=== PATIENT | female | born 1950 | race Caucasian/White ===

== ENCOUNTER 2019-12-03 11:06 | Inpatient (IN) | payer OTHER ==
[2019-12-03] VITALS (11 sets, daily range): BP systolic 95–170; BP diastolic 39–93
[~2019-12-03] VITALS: Ht 160 cm; Wt 76.9 kg
--- NOTE | 2019-12-03 11:29 | ED Integumentary General ---
General Chief Complaint: Skin/Wound Problems Stated Complaint: R FOOT WOUND Nursing Triage Note: reports wound to R foot x 4 days Source: patient Exam Limitations: no limitations History of Present Illness Date Seen by Provider: Dec 03, 2019 Time Seen by Provider: 11:25 Initial Comments To ER with reports of a wound to the medial right foot. This has been present for about 4 days. She states it began as a blister on the plantar surface of her foot. She popped it. The redness has actually receded and looks a bit better today but there is still quite a bit of redness. She denies fevers or chills. She denies any medical history. She takes no medications and does not have a family doctor. She states she's only had blood drawn once in her life. She does not recall stepping on anything with her right foot, she denies any loss of sensation or neuropathy in her feet. She works for [employer] in [place] and is insistent that she return to work tomorrow. Timing/Duration: constant, other Severity: moderate Location: extremities Possible Cause: no cause identified Associated Symptoms: denies symptoms Allergies and Home Medications Allergies Coded Allergies: No Known Drug Allergies (Unverified , 12/03/19) Patient Home Medication List Home Medication List Reviewed: Yes Review of Systems Review of Systems Constitutional: see HPI; No chills, No fever EENTM: see HPI Respiratory: no symptoms reported Cardiovascular: no symptoms reported Genitourinary: no symptoms reported Musculoskeletal: no symptoms reported Skin: no symptoms reported Psychiatric/Neurological: No Symptoms Reported Endocrine: No Symptoms Reported Hematologic/Lymphatic: No Symptoms Reported Past Iqjzioa-Jnjnrg-Kftkhk Hx Patient Social History Alcohol Use: Denies Use Recreational Drug Use: No Smoking Status: Never a Smoker Recent Foreign Travel: No Contact w/Someone Who Travel: No Recent Infectious Disease Expo: No Past Medical History Surgeries: No Respiratory: No Cardiac: No Neurological: No Genitourinary: No Gastrointestinal: No Musculoskeletal: No Endocrine: No HEENT: No Cancer: No Psychosocial: No Integumentary: No Blood Disorders: No Physical Exam Vital Signs Vital Signs - First Documented 12/03/19 11:14 Temp 36.8 Pulse 120 Resp 18 B/P (MAP) 150/98 (115) Pulse Ox 99 Capillary Refill : Less Than 3 Seconds General Appearance: WD/WN, no apparent distress, other (no distress alert and oriented blood pressure is fine at 150 over 90s but her heart rate is fast at about 115 to 125 narrow complex regular) Neck: non-tender, full range of motion Cardiovascular: regular rate, rhythm, no murmur Respiratory: normal breath sounds, no respiratory distress, no accessory muscle use Gastrointestinal: normal bowel sounds, non tender, soft Neurologic/Psychiatric: alert, normal mood/affect, oriented x 3 Skin: normal color, warm/dry Skin Problem Location: lower extremities Skin Problem Character: other (there is erythema and ecchymosis to the medial and plantar surface of the right foot. There is swelling to the entire right foot. Culture was collected of the moist wound.) Progress/Results/Core Measures Results/Orders Lab Results Laboratory Tests Test 12/03/19 11:10 12/03/19 11:15 12/03/19 11:44 Range/Units White Blood Count 20.0 H 4.3-11.0 10^3/uL Red Blood Count 4.94 4.35-5.85 10^6/uL Hemoglobin 13.6 11.5-16.0 G/DL Hematocrit 41 35-52 % Mean Corpuscular Volume 82 80-99 FL Mean Corpuscular Hemoglobin 28 25-34 PG Mean Corpuscular Hemoglobin Concent 34 32-36 G/DL Red Cell Distribution Width 13.6 10.0-14.5 % Platelet Count 419 H 130-400 10^3/uL Mean Platelet Volume 9.5 7.4-10.4 FL Neutrophils (%) (Auto) 83 H 42-75 % Lymphocytes (%) (Auto) 8 L 12-44 % Monocytes (%) (Auto) 9 0-12 % Eosinophils (%) (Auto) 0 0-10 % Basophils (%) (Auto) 0 0-10 % Neutrophils # (Auto) 16.7 H 1.8-7.8 X 10^3 Lymphocytes # (Auto) 1.5 1.0-4.0 X 10^3 Monocytes # (Auto) 1.7 H 0.0-1.0 X 10^3 Eosinophils # (Auto) 0.1 0.0-0.3 10^3/uL Basophils # (Auto) 0.1 0.0-0.1 10^3/uL Neutrophils % (Manual) 82 % Lymphocytes % (Manual) 5 % Monocytes % (Manual) 13 % Eosinophils % (Manual) 0 % Basophils % (Manual) 0 % Band Neutrophils 0 % Blood Morphology Comment NORMAL Prothrombin Time 14.6 12.2-14.7 SEC INR Comment 1.1 0.8-1.4 Activated Partial Thromboplast Time 32 24-35 SEC Sodium Level 133 L 135-145 MMOL/L Potassium Level 4.0 3.6-5.0 MMOL/L Chloride Level 98 98-107 MMOL/L Carbon Dioxide Level 15 L 21-32 MMOL/L Anion Gap 20 H 5-14 MMOL/L Blood Urea Nitrogen 10 7-18 MG/DL Creatinine 0.91 0.60-1.30 MG/DL Estimat Glomerular Filtration Rate > 60 BUN/Creatinine Ratio 11 Glucose Level 460 *H 70-105 MG/DL Calcium Level 9.2 8.5-10.1 MG/DL Corrected Calcium 9.8 8.5-10.1 MG/DL Total Bilirubin 0.7 0.1-1.0 MG/DL Aspartate Amino Transf (AST/SGOT) 21 5-34 U/L Alanine Aminotransferase (ALT/SGPT) 18 0-55 U/L Alkaline Phosphatase 196 H 40-136 U/L Total Protein 8.0 6.4-8.2 GM/DL Albumin 3.3 3.2-4.5 GM/DL Lactic Acid Level 1.51 0.50-2.00 MMOL/L Beta-Hydroxybutyrate (Chem panel) 3.48 H 0.00-0.27 MMOL/L My Orders Orders - ERIC COLLIER GERMINATION TESTING MANAGER Cbc With Automated Diff (12/03/19 11:21) Comprehensive Metabolic Panel (12/03/19 11:21) Blood Culture (12/03/19 11:21) Sputum Culture (12/03/19 11:21) Urinalysis (12/03/19 11:21) Urine Culture (12/03/19 11:21) Protime With Inr (12/03/19 11:21) Partial Thromboplastin Time (12/03/19 11:21) Chest 1 View, Ap/Pa Only (12/03/19 11:21) Ed Iv/Invasive Line Start (12/03/19 11:21) Ed Iv/Invasive Line Start (12/03/19 11:21) Vital Signs Adult Sepsis Patie Q15M (12/03/19 11:21) O2 (12/03/19 11:21) Remove Rings In Anticipation O (12/03/19 11:21) Wound Culture (12/03/19 11:21) Lactic Acid Analyzer (12/03/19 11:21) Hemoglobin A1c (12/03/19 11:21) Foot, Right, 3 View (12/03/19 11:21) Lactated Ringers (Lr 1000 Ml Iv Solution (12/03/19 11:30) Manual Differential (12/03/19 11:10) Insulin (Regular) Human (Novolin R (Per (12/03/19 12:00) Piperacillin Sodium/Tazobactam (Zosyn Vi (12/03/19 12:00) Vancomycin Injection (Vancomycin Injecti (12/03/19 12:00) Beta Hydroxybutyrate (12/03/19 11:53) Erythrocyte Sedimentation Rate (12/03/19 11:54) Medications Given in ED Current Medications Medications Dose Ordered Sig/Olya Route Start Time Stop Time Status Last Admin Dose Admin Insulin Human Regular 8 unit ONCE ONCE SC 12/03/19 12:00 12/03/19 12:01 DC 12/03/19 12:00 8 UNIT Piperacillin Sod/ Tazobactam Sod 4.5 gm/Sodium Chloride 100 ml @ 200 mls/hr ONCE ONCE IV 12/03/19 12:00 12/03/19 12:29 12/03/19 11:59 200 MLS/HR Vital Signs/I&O 12/03/19 11:14 Temp 36.8 Pulse 120 Resp 18 B/P (MAP) 150/98 (115) Pulse Ox 99 Blood Pressure Mean: 115 Departure Communication (Admissions) Time/Spoke to Admitting Phy: 12:[address] Sen, will admit DKa protocol, sepsis protocol using Zosyn and vancomycin. 1224-focused exam: cap refil <3 seconds, HR 105 sinus, BP 140s systolic. alert and oriented skin warm dry Impression Primary Impression: Cellulitis of right foot Additional Impressions: Sepsis DKA (diabetic ketoacidoses) Disposition: ADMITTED INPATIENT Condition: Stable Admissions Decision to Admit Reason: Admit from ER (General) Decision to Admit/Date: Dec 03, 2019 Time/Decision to Admit Time: 12:25 Departure-Patient Inst. Referrals: NO,LOCAL PHYSICIAN (PCP/Family) Primary Care Physician ERIC COLLIER APRN Dec 03, 2019 11:29
[2019-12-03 11:30] LABS: BASOPHILS # (AUTO) 0.1 10^3/uL (0.0-0.1); BASOPHILS % (AUTO) 0 % (0-10); EOSINOPHILS # (AUTO) 0.1 10^3/uL (0.0-0.3); EOSINOPHILS % (AUTO) 0 % (0-10); HEMATOCRIT 41 % (35-52); HEMOGLOBIN 13.6 G/DL (11.5-16.0); LYMPHOCYTES # (AUTO) 1.5 X 10^3 (1.0-4.0); LYMPHOCYTES % (AUTO) 8 % (12-44); MEAN CORPUSCULAR HEMOGLOBIN 28 PG (25-34); MEAN CORPUSCULAR HGB CONC 34 G/DL (32-36); MEAN CORPUSCULAR VOLUME 82 FL (80-99); MEAN PLATELET VOLUME 9.5 FL (7.4-10.4); MONOCYTES # (AUTO) 1.7 X 10^3 (0.0-1.0); MONOCYTES % (AUTO) 9 % (0-12); NEUTROPHILS # (AUTO) 16.7 X 10^3 (1.8-7.8); NEUTROPHILS % (AUTO) 83 % (42-75); PLATELET COUNT 419 10^3/uL (130-400); RED CELL DISTRIBUTION WIDTH 13.6 % (10.0-14.5)
[2019-12-03] MEDS ORDERED: LACTATED RINGERS 1,000 ML IV SCH (11:30)
[2019-12-03 11:37] LABS: INR 1.1 (0.8-1.4); PROTHROMBIN TIME PATIENT 14.6 SEC (12.2-14.7)
[2019-12-03 11:44] LABS: ALANINE AMINOTRANSFERASE 18 U/L (0-55); ALBUMIN 3.3 GM/DL (3.2-4.5); ALKALINE PHOSPHATASE 196 U/L (40-136); BILIRUBIN,TOTAL 0.7 MG/DL (0.1-1.0); BUN/CREATININE RATIO 11; CALCIUM 9.2 MG/DL (8.5-10.1); CARBON DIOXIDE 15 MMOL/L (21-32); CHLORIDE 98 MMOL/L (98-107); CREATININE SERUM 0.91 MG/DL (0.60-1.30); GFR ESTIMATED > 60; SODIUM 133 MMOL/L (135-145)
[2019-12-03 11:47] LABS: GLUCOSE 460 MG/DL (70-105)
--- NOTE | 2019-12-03 11:48 | Diagnostic Imaging Report ---
EXAM: CHEST 1 VIEW, AP/PA ONLY INDICATION: Sepsis. COMPARISON: None. FINDINGS: Normal heart size and central pulmonary vascularity. No focal pulmonary opacity, effusion or pneumothorax. No acute osseous findings. IMPRESSION: No acute cardiopulmonary findings. Dictated by: Dictated on workstation # [id number]
--- NOTE | 2019-12-03 11:50 | Diagnostic Imaging Report ---
EXAM: FOOT, RIGHT, 3 VIEW INDICATION: Sepsis. Foot infection. COMPARISON: None. FINDINGS: No fracture or malalignment. No suspicious osteoblastic or lytic lesions. Large plantar and calcaneal heel spurs. No radiopaque foreign bodies. No soft tissue gas. Mild degenerative changes in the right 1st MTP joint. IMPRESSION: No acute radiographic findings in the right foot. Dictated by: Dictated on workstation # [id number]
[2019-12-03] MEDS ORDERED: inSUlin (REGULAR) HUMAN 1 UNIT/0.01 ML (CHARGE PER UNIT) SC ONE (12:00)
[2019-12-03] MEDS ORDERED: VANCOMYCIN INJECTION 1,000 MG in NS (IVPB) 250 ML IV ONE (12:00)
[2019-12-03] MEDS ORDERED: PIPERACILLIN SODIUM/TAZOBACTAM 4.5 GM in NS (IVPB) 100 ML IV ONE (12:00)
[2019-12-03 12:11] LABS: BAND NEUTROPHILS 0 %; BASOPHILS % (MANUAL) 0 %; EOSINOPHILS % (MANUAL) 0 %; LYMPHOCYTES % (MANUAL) 5 %; MONOCYTES % (MANUAL) 13 %; NEUTROPHILS % (MANUAL) 82 %; RBC MORPH NORMAL
--- NOTE | 2019-12-03 12:50 | NUR ---
No answer from nurse to take report at this time.
--- NOTE | 2019-12-03 13:03 | NUR ---
Nurse not available for report, will call when available.
--- NOTE | 2019-12-03 13:04 | NUR ---
THIS NURSE GOT REPORT FROM HENRIQUE RN IN ER.
[2019-12-03] MEDS ORDERED: D5 1/2 NS 1000 ML IV SOLUTION 1,000 ML IV ONE ×2 (13:33→21:17)
[2019-12-03] MEDS ORDERED: 1/2 NS IV SOLUTION 1,000 ML IV ONE (13:33)
[2019-12-03] MEDS ORDERED: POTASSIUM CL 10MEQ/50ML IVPB 100 ML IV ONE (13:34)
[2019-12-03] MEDS: 1/2 NS IV SOLUTION 1,000 ML IV SCH ×3 (14:13→22:21)
[2019-12-03] MEDS ORDERED: inSUlin REGULAR 100 UNITS/100 ML DRIP (Premix) IV SCH (14:15)
[2019-12-03 14:31] LABS: BUN/CREATININE RATIO 11; CARBON DIOXIDE 17 MMOL/L (21-32); CHLORIDE 101 MMOL/L (98-107); GFR ESTIMATED > 60; GLUCOSE 333 MG/DL (70-105); POTASSIUM 3.6 MMOL/L (3.6-5.0); SODIUM 136 MMOL/L (135-145)
[2019-12-03] MEDS: ENOXAPARIN 40 MG/0.4 ML (LOVENOX) SYR SC SCH (15:54)
[2019-12-03 16:33] LABS: BUN/CREATININE RATIO 13; CALCIUM 8.7 MG/DL (8.5-10.1); CARBON DIOXIDE 21 MMOL/L (21-32); CHLORIDE 102 MMOL/L (98-107); CREATININE SERUM 0.71 MG/DL (0.60-1.30); GFR ESTIMATED > 60; GLUCOSE 218 MG/DL (70-105); POTASSIUM 3.2 MMOL/L (3.6-5.0); SODIUM 138 MMOL/L (135-145)
--- NOTE | 2019-12-03 16:46 | NUR ---
THIS NURSE NOTIFIED DR SHAFFER PT POTASSIUM WAS 3.2. PT IS GETTING 5mEQ PER HOUR PER PROTOCOL. NO NEW ORDERS AT THIS TIME.
--- NOTE | 2019-12-03 17:15 | History & Physical-Hospitalist ---
History of Present Illness HPI/Chief Complaint Patricia Morgan is a 69 year old female with no known past medical history who presented with a right foot wound. She reports that she developed a blister on the inside of her right foot on . Since then it has progressed and opened with surrounding redness. She denies any pain. She denies numbness. She denies fevers and chills. She has had no nausea or vomiting. She denies shortness of breath and cough. She denies chest pain. She denies abdominal pain. She does not take any medications. She says she had a workup done when she went to the dentist and everything was normal. She does not follow with a doctor. She has a strong family history of diabetes. She does not smoke, drink alcohol, or use illicit drugs. Source: patient Exam Limitations: no limitations Date Seen 12/03/19 Time Seen by a Provider: 13:00 Attending Physician Grzegorz Shaffer MD PCP No,Local Physician Referring Physician Date of Admission Dec 03, 2019 at 11:55 Home Medications & Allergies Home Medications Reviewed patient Home Medication Reconciliation performed by pharmacy medication reconciliations in tube conversion technician and/or nursing. Patients Allergies have been reviewed. Allergies Allergies Coded Allergies No Known Drug Allergies (Unverified12/03/19) Past Jzqhjku-Tqgmzu-Mtzins Hx Past Med/Social Hx: Reviewed Nursing Past Med/Soc Hx Patient Social History Alcohol Use: Denies Use Recreational Drug Use: No Smoking Status: Never a Smoker Recent Foreign Travel: No Contact w/other who traveled: No Recent Infectious Disease Expo: No Past Medical History History of Blood Disorders: No Review of Systems Constitutional: no symptoms reported EENTM: no symptoms reported Respiratory: no symptoms reported Cardiovascular: no symptoms reported Gastrointestinal: no symptoms reported Genitourinary: no symptoms reported Physical Exam Physical Exam Vital Signs Vital Signs - First Documented 12/03/19 12/03/19 11:14 13:45 Temp 36.8 Pulse 120 Resp 18 B/P (MAP) 150/98 (115) Pulse Ox 99 O2 Delivery Room Air Capillary Refill : Less Than 3 Seconds Height, Weight, BMI Height: '" Weight: lbs. oz. kg; 25.23 BMI Method: General Appearance: No Apparent Distress, WD/WN HEENT: PERRL/EOMI, Pharynx Normal Neck: Normal Inspection, Supple Respiratory: Lungs Clear, Normal Breath Sounds, No Respiratory Distress Cardiovascular: Regular Rate, Rhythm, No Edema, No Murmur Gastrointestinal: Normal Bowel Sounds, Non Tender, Soft Extremity: Non Tender, No Pedal Edema, Inflammation Neurologic/Psychiatric: Alert, Oriented x3, No Motor/Sensory Deficits, Normal Mood/Affect Skin: Warm/Dry, Erythema Results Results/Procedures Labs Laboratory Tests 12/03/19 11:10 12/03/19 14:00 12/03/19 16:00 Patient resulted labs reviewed. Imaging: Reviewed Imaging Report Assessment/Plan Admission Diagnosis Type 2 diabetes mellitus with ketoacidosis and foot ulcer Admission Status: Inpatient Order (span 2 midnights) Reason for Inpatient Admission: DKA requiring IV insulin and foot ulcer requiring IV antibiotics Assessment and Plan Type 2 diabetes mellitus with ketoacidosis Diabetic foot ulcer Sepsis -New onset diabetes -Labs consistent with DKA -Started on DKA protocol -Insulin gtt -IV fluids -SIRS+ with leukocytosis and tachycardia -Septic source identified as diabetic foot ulcer -Started on Vanc and Zosyn -XR with no evidence of osteomyelitis -ESR normal -A1C pending DVT Prophylaxis: Lovenox Critical Care Critically Ill Patient Diagnosis/Problems Diagnosis/Problems (1) Sepsis Status: Acute (2) Cellulitis of right foot Status: Acute (3) T2DM (type 2 diabetes mellitus) Status: Acute Qualifiers: Diabetes mellitus penitentiary insulin use: without superintendent container terminal use Diabetes mellitus complication status: with skin complications Diabetes mellitus complication detail: with foot ulcer Qualified Codes: E11.621 - Type 2 diabetes mellitus with foot ulcer; L97.509 - Non-pressure chronic ulcer of other part of unspecified foot with unspecified severity (4) DKA (diabetic ketoacidoses) Status: Acute Qualifiers: Diabetes mellitus complication detail: without coma Clinical Quality Measures DVT/VTE Risk/Contraindication: Risk Factor Score Per Nursin RFS Level Per Nursing on Admit: 4+=Very High GRZEGORZ SHAFFER MD Dec 03, 2019 17:15
[2019-12-03] MEDS: PIPERACILLIN/TAZO 4.5 GM/NS 100 ML IV SCH ×2 (17:45)
[2019-12-03] MEDS ORDERED: POTASSIUM CL 10MEQ/50ML IVPB 50 ML IV ONE (19:30)
[2019-12-03 21:15] LABS: BUN/CREATININE RATIO 11; CALCIUM 8.4 MG/DL (8.5-10.1); CARBON DIOXIDE 22 MMOL/L (21-32); CHLORIDE 101 MMOL/L (98-107); CREATININE SERUM 0.71 MG/DL (0.60-1.30); GFR ESTIMATED > 60; GLUCOSE 208 MG/DL (70-105); POTASSIUM 3.1 MMOL/L (3.6-5.0); SODIUM 134 MMOL/L (135-145)
[2019-12-03] MEDS: POTASSIUM CL 10MEQ/50ML IVPB 50 ML IV SCH ×2 (21:23→23:11)
[2019-12-03] MEDS: VANCOMYCIN 1 GM/NS 250 ML IVPB IV SCH ×2 (22:14)
[2019-12-03] MEDS ORDERED: KCL 20 MEQ TAB (K-DUR) PO ONE ×2 (23:15→23:27)
[2019-12-04] VITALS (18 sets, daily range): BP systolic 95–158; BP diastolic 45–85
[2019-12-04] MEDS: PIPERACILLIN/TAZO 4.5 GM/NS 100 ML IV SCH ×6 (01:42→18:52)
[2019-12-04 01:43] LABS: BASOPHILS % (AUTO) 0 % (0-10); EOSINOPHILS # (AUTO) 0.1 10^3/uL (0.0-0.3); EOSINOPHILS % (AUTO) 0 % (0-10); HEMATOCRIT 33 % (35-52); LYMPHOCYTES # (AUTO) 1.2 X 10^3 (1.0-4.0); LYMPHOCYTES % (AUTO) 7 % (12-44); MEAN CORPUSCULAR HEMOGLOBIN 28 PG (25-34); MEAN CORPUSCULAR HGB CONC 33 G/DL (32-36); MEAN CORPUSCULAR VOLUME 83 FL (80-99); MEAN PLATELET VOLUME 8.9 FL (7.4-10.4); MONOCYTES % (AUTO) 11 % (0-12); NEUTROPHILS # (AUTO) 14.8 X 10^3 (1.8-7.8); NEUTROPHILS % (AUTO) 81 % (42-75); PLATELET COUNT 357 10^3/uL (130-400); RED CELL DISTRIBUTION WIDTH 12.9 % (10.0-14.5); WHITE BLOOD COUNT 18.1 10^3/uL (4.3-11.0)
[2019-12-04 02:02] LABS: ALANINE AMINOTRANSFERASE 21 U/L (0-55); ALBUMIN 2.7 GM/DL (3.2-4.5); ALKALINE PHOSPHATASE 222 U/L (40-136); BILIRUBIN,TOTAL 0.5 MG/DL (0.1-1.0); BUN/CREATININE RATIO 11; CALCIUM 8.1 MG/DL (8.5-10.1); CARBON DIOXIDE 15 MMOL/L (21-32); CHLORIDE 100 MMOL/L (98-107); CREATININE SERUM 0.81 MG/DL (0.60-1.30); GFR ESTIMATED > 60; GLUCOSE 275 MG/DL (70-105); SODIUM 130 MMOL/L (135-145); TOTAL PROTEIN 6.2 GM/DL (6.4-8.2)
[2019-12-04 02:21] LABS: MAGNESIUM 1.6 MG/DL (1.6-2.4); PHOSPHORUS 2.4 MG/DL (2.3-4.7)
[2019-12-04] MEDS: POTASSIUM CL 10MEQ/50ML IVPB 50 ML IV SCH (04:30)
[2019-12-04] MEDS: MAGNESIUM 1 GM/100 ML IVPB 100 ML IV SCH ×2 (04:30→04:37)
[2019-12-04] MEDS: KCL 20 MEQ TAB (K-DUR) PO SCH (04:31)
--- NOTE | 2019-12-04 05:13 | Pulmonary Consultation ---
History of Present Illness History of Present Illness Date Seen by Provider: Dec 04, 2019 Time Seen by Provider: 05:06 Date of Admission Allergies and Home Medications Allergies Coded Allergies: No Known Drug Allergies (Unverified , 12/03/19) Past Qgxthaq-Iscvgl-Okvafd Hx Past Med/Social Hx: Reviewed Nursing Past Med/Soc Hx Patient Social History Alcohol Use: Denies Use Recreational Drug Use: No Smoking Status: Never a Smoker Recent Foreign Travel: No Contact w/Someone Who Travel: No Recent Infectious Disease Expo: No Past Medical History Surgeries: No Respiratory: No Cardiac: No Neurological: No Genitourinary: No Gastrointestinal: No Musculoskeletal: No Endocrine: No HEENT: No Cancer: No Psychosocial: No Integumentary: No Blood Disorders: No Review of Systems Time Seen by Provider: 05:15 Sepsis Event Evaluation Height, Weight, BMI Height: '" Weight: lbs. oz. kg; 25.23 BMI Method: Exam Exam Vital Signs Date Time Temp Pulse Resp B/P (MAP) Pulse Ox O2 Delivery O2 Flow Rate FiO2 12/04/19 04:00 100 Room Air 12/04/19 04:00 37.1 12/04/19 03:00 92 23 140/67 (91) 96 Room Air 12/04/19 02:30 89 21 148/79 (102) 96 Room Air 12/04/19 01:00 92 12/04/19 01:00 92 14 121/72 (88) 95 Room Air 12/04/19 00:00 100 Room Air 12/04/19 00:00 92 24 126/73 (90) 91 Room Air 12/03/19 23:45 37.2 12/03/19 23:00 90 17 95/51 (66) 97 Room Air 12/03/19 22:00 105 12 119/62 (81) 96 Room Air 12/03/19 21:00 98 16 116/39 (64) 97 Room Air 12/03/19 20:00 97 20 123/53 (76) 97 Room Air 12/03/19 20:00 37.0 12/03/19 20:00 100 Room Air 12/03/19 19:00 99 12/03/19 19:00 99 14 120/61 (80) 95 Room Air 12/03/19 18:00 96 18 149/77 (101) 97 Room Air 12/03/19 17:00 106 16 149/92 (111) 99 Room Air 12/03/19 16:25 100 Room Air 12/03/19 16:00 95 18 130/70 (90) 96 Room Air 12/03/19 15:00 94 21 166/71 (102) 97 Room Air 12/03/19 14:01 100 Room Air 12/03/19 14:00 102 18 170/71 (104) 99 Room Air 12/03/19 13:54 96 12/03/19 13:45 105 26 158/93 (114) 100 Room Air 12/03/19 13:10 97 12 154/88 95 12/03/19 11:14 36.8 120 18 150/98 (115) 99 I & O 12/04/19 07:00 Intake Total 3350 ml Balance 3350 ml Height & Weight Height: '" Weight: lbs. oz. kg; 25.23 BMI Method: General Appearance: No Apparent Distress, WD/WN HEENT: PERRL/EOMI, Pharynx Normal Neck: Normal Inspection, Supple Respiratory: Lungs Clear, Normal Breath Sounds, No Respiratory Distress Cardiovascular: Regular Rate, Rhythm, No Edema, No Murmur Capillary Refill: Less Than 3 Seconds Gastrointestinal: normal bowel sounds, non tender, soft Extremity: Non Tender, No Pedal Edema, Inflammation Neurologic/Psychiatric: Alert, Oriented x3, No Motor/Sensory Deficits, Normal Mood/Affect Skin: Warm/Dry, Erythema Results Lab Laboratory Tests 12/03/19 11:10 12/03/19 14:00 12/03/19 16:00 12/03/19 20:44 12/04/19 01:31 Assessment/Plan Assessment/Plan Acute DKA -Insulin gtt was stopped per EICU last night at around midnight -Labs from 129 show worsening metabolic acidosis -Pt was started Levemir 20 units and SSI -No labs since 129 -- will repeat labs and UA now. May need to restart insulin gtt. -IVF - have been d/c'd Diabetic foot ulcer with cellulitis with sepsis -Pt is on Vanco and Zosyn -Repeat MAGDALENA LALA DO Dec 04, 2019 05:13
[2019-12-04 05:39] LABS: BASOPHILS % (AUTO) 0 % (0-10); EOSINOPHILS # (AUTO) 0.1 10^3/uL (0.0-0.3); EOSINOPHILS % (AUTO) 0 % (0-10); HEMATOCRIT 33 % (35-52); HEMOGLOBIN 11.1 G/DL (11.5-16.0); LYMPHOCYTES # (AUTO) 1.3 X 10^3 (1.0-4.0); LYMPHOCYTES % (AUTO) 7 % (12-44); MEAN CORPUSCULAR HEMOGLOBIN 28 PG (25-34); MEAN CORPUSCULAR HGB CONC 33 G/DL (32-36); MEAN CORPUSCULAR VOLUME 83 FL (80-99); MONOCYTES % (AUTO) 10 % (0-12); NEUTROPHILS % (AUTO) 83 % (42-75); PLATELET COUNT 383 10^3/uL (130-400); RED CELL DISTRIBUTION WIDTH 12.9 % (10.0-14.5); WHITE BLOOD COUNT 19.4 10^3/uL (4.3-11.0)
[2019-12-04 05:43] LABS: BILIRUBIN,URINE NEGATIVE (NEGATIVE); CLARITY,URINE CLOUDY; COLOR,URINE YELLOW; GLUCOSE, URINE (UA) 3+ (NEGATIVE); KETONES,URINE 1+ (NEGATIVE); LEUKOCYTE ESTERASE ,URINE 2+ (NEGATIVE); NITRITE,URINE NEGATIVE (NEGATIVE); PROTEIN,URINE 1+ (NEGATIVE)
[2019-12-04 05:56] LABS: BACTERIA,URINE MODERATE /HPF; WBC,URINE 50-100 /HPF; YEAST,URINE FEW /HPF
[2019-12-04 06:07] LABS: ALBUMIN 2.8 GM/DL (3.2-4.5); BILIRUBIN,TOTAL 0.6 MG/DL (0.1-1.0); CALCIUM 8.2 MG/DL (8.5-10.1); CREATININE SERUM 0.99 MG/DL (0.60-1.30); MAGNESIUM 1.9 MG/DL (1.6-2.4); PHOSPHORUS 2.3 MG/DL (2.3-4.7); POTASSIUM 3.9 MMOL/L (3.6-5.0); TOTAL PROTEIN 6.3 GM/DL (6.4-8.2)
[2019-12-04] MEDS: inSUlin ASPART (NovoLOG) 1 UNIT/0.01 ML (CHARGE PER UNIT) SC SCH ×4 (06:25→21:03)
--- NOTE | 2019-12-04 08:17 | Progress Note - Hospitalist ---
Subjective HPI/CC On Admission Date Seen by Provider: Dec 04, 2019 Time Seen by Provider: 08:13 Patricia Morgan is a 69 year old female with no known past medical history who presented with a right foot wound. She reports that she developed a blister on the inside of her right foot on . Since then it has progressed and opene d with surrounding redness. She denies any pain. She denies numbness. She denies fevers and chills. She has had no nausea or vomiting. She denies shortness of breath and cough. She denies chest pain. She denies abdominal pain. She does not take any medications. She says she had a workup done when she went to the dentist and everything was normal. She does not follow with a doctor. She has a strong family history of diabetes. She does not smoke, drink alcohol, or use illicit drugs. Subjective/Events-last exam Pt reports being tired but otherwise feeling well. Thinks her foot looks better. Denies any known history of of problems with her blood sugar. Focused Exam Lactate Level 12/03/19 11:44: Lactic Acid Level 1.51 12/04/19 05:27: Lactic Acid Level 1.26 Lactic Acid Level Laboratory Tests Test 12/04/19 05:27 Lactic Acid Level 1.26 MMOL/L (0.50-2.00) Objective Exam Vital Signs Vital Signs Date Time Temp Pulse Resp B/P (MAP) Pulse Ox O2 Delivery O2 Flow Rate FiO2 12/04/19 08:00 93 26 95/55 (68) 95 Room Air 12/04/19 07:55 36.7 Capillary Refill : Less Than 3 Seconds General Appearance: No Apparent Distress, WD/WN Respiratory: Lungs Clear, No Respiratory Distress Cardiovascular: Regular Rate, Rhythm, No Murmur Gastrointestinal: Normal Bowel Sounds, Soft Extremity: Other (interior aspect of right foot with erythema and warmth- improved per patient) Neurologic/Psychiatric: Alert, Oriented x3 Results/Procedures Lab Laboratory Tests 12/03/19 11:10 12/03/19 14:00 12/03/19 16:00 12/03/19 20:44 12/04/19 01:31 12/04/19 05:27 Patient resulted labs reviewed. Imaging: Reviewed Imaging Report Assessment/Plan Assessment and Plan Assess & Plan/Chief Complaint Type 2 diabetes mellitus with ketoacidosis- ketoacidosis resolved Diabetic foot ulcer Sepsis -New onset diabetes- will need education- orderes placed -DKA resolved, off insulin gtt -Levemir 20 units tonight -Continue on Vanc and Zosyn - Wound care consulted, appreciate recs -XR with no evidence of osteomyelitis -A1C 14.4 - Repeat BMP at 1200- if ok will transfer to 4th floor DVT Prophylaxis: Lovenox Critical Care Critically Ill Patient Diagnosis/Problems Diagnosis/Problems (1) T2DM (type 2 diabetes mellitus) Status: Acute Qualifiers: Diabetes mellitus skilled nursing insulin use: without long term care social worker use Diabetes mellitus complication status: with skin complications Diabetes mellitus complication detail: with foot ulcer Qualified Codes: E11.621 - Type 2 diabetes mellitus with foot ulcer; L97.509 - Non-pressure chronic ulcer of other part of unspecified foot with unspecified severity (2) DKA (diabetic ketoacidoses) Status: Acute Qualifiers: Diabetes mellitus complication detail: without coma (3) Cellulitis of right foot Status: Acute (4) Sepsis Status: Acute Qualifiers: Sepsis type: sepsis due to unspecified organism Sepsis acute organ d ysfunction status: without acute organ dysfunction Qualified Codes: A41.9 - Sepsis, unspecified organism Clinical Quality Measures DVT/VTE Risk/Contraindication: Risk Factor Score Per Nursin RFS Level Per Nursing on Admit: 4+=Very High EARL MCLAUGHLIN MD Dec 04, 2019 08:17
[2019-12-04] MEDS ORDERED: lisINopril 40 MG (PRINIVIL) TABLET PO SCH (09:00)
[2019-12-04] MEDS: VANCOMYCIN 1 GM/NS 250 ML IVPB IV SCH ×4 (09:37→22:03)
[2019-12-04] MEDS ORDERED: CALC-921 PO (11:06)
[2019-12-04] MEDS ORDERED: NAPR220C11 PO (11:06)
--- NOTE | 2019-12-04 11:07 | NUR ---
SPOKE WITH THE PT TO COMPLETE THE MED REC PT DENIES TAKING ANY PRESCRIPTION MEDICATIONS OTC MEDS: EDDIE BRYSON I DID UPDATE HER PREFERRED PHARMACY
[2019-12-04 12:39] LABS: CALCIUM 8.6 MG/DL (8.5-10.1); CREATININE SERUM 1.33 MG/DL (0.60-1.30); POTASSIUM 3.9 MMOL/L (3.6-5.0)
[2019-12-04 12:44] LABS: BILIRUBIN,URINE NEGATIVE (NEGATIVE); CLARITY,URINE CLOUDY; COLOR,URINE YELLOW; GLUCOSE, URINE (UA) 2+ (NEGATIVE); KETONES,URINE 1+ (NEGATIVE); LEUKOCYTE ESTERASE ,URINE 2+ (NEGATIVE); NITRITE,URINE NEGATIVE (NEGATIVE); PH,URINE 5.5 (5-9); PROTEIN,URINE 1+ (NEGATIVE)
[2019-12-04 12:54] LABS: BACTERIA,URINE MODERATE /HPF; WBC,URINE 50-100 /HPF
[2019-12-04 12:55] LABS: AMORPHOUS SEDIMENT,UR RARE AMOR URATES /LPF; YEAST,URINE MODERATE /HPF
--- NOTE | 2019-12-04 14:30 | NUR ---
"RD ASSESSMENT PMHx: no significant PMHx; new onset DM PT INTERACTION: Pt was awake and pleasant during consult for diet education. Pt states current appetite is not good. Note avg PO intake 50% x2meal, per chart review. Pt states following a regular diet at home, and has some issues with chewing food as she recently had her teeth removed. Pt states some recent issues with nausea and vomiting. Pt states no recent issues with constipation or diarrhea, and that her last BM was 12/02. Note pt not currently on bowel regimen per chart review. Pt states no recent wt changes. Note unable to determine recent wt hx, per chart review. Note pt has recent diagnosis of DM and recent HbA1c of 14.4, per chart review. Note presence of wound (R foot), per chart review. ABNORMAL NUTRITION-RELATED LAB VALUES LOW: Na 130; Ca 8.1; HIGH: glu 303; AST 48; alkphos 251 Est. kcal needs: 1625 kcal | 25 kcal/kg Est. Pro needs: 78 g Pro | 1.2 g Pro/kg PES STATEMENT: Inadequate oral intake (NI-2.1) related to loss of appetite | nausea | vomiting as evidenced by pt interview | avg PO intake 50% x2meal Inadequate protein intake (NI-5.6.1) related to increased protein needs as evidenced by presence of wound (R foot) Food- and nutrition-related knowledge deficit (NB-1.1) related to lack of prior nutrition-related recommendations as evidenced by new onset of DM | pt interview INTERVENTION: Continue with current diet order of CHO 60g/m 0snack diet. Pt may benefit from nutrition supplementation if PO intake declines. Discussed and provided diet education on DM management. Provided and discussed handout on CHO counting, portion control, and fiber intake. Pt verbalized understanding of information provided. Will follow-up prior to discharge to see if pt has questions. Will continue to follow and reassess as pt needs, intake, and status change. MONITOR/EVALUATE: PO Intake; Plan of Care; Hydration Status; Weight Status; Lab Values Leslie Hamilton, MS, RD, LD"
[2019-12-04] MEDS: ENOXAPARIN 40 MG/0.4 ML (LOVENOX) SYR SC SCH (15:27)
[2019-12-04] MEDS: ACETAMINOPHEN 325 MG TABLET PO PRN ×2 (16:41→22:27)
--- NOTE | 2019-12-04 19:14 | Wound Care Assessment ---
Wound Care Assessment Date Seen by Provider: Dec 04, 2019 Time Seen by Provider: 18:00 Chief Complaint R foot ulcer. HPI The patient is a 69 year old female, previously undiagnosed diabetic, who presented to the ER with an infected ulcer of the R foot, in ketoacidosis. She is much improved with antibiotics and insulin. The wound began as a blister. There is no history of trauma to the area. No clear etiology for wound, other than diabetes. The wound is not debrided. Will follow as inpatient and as out-patient. Past Medical History: Admits Diabetes Type II Smoking Status: Never a Smoker Recreational Drug Use: No Alcohol Use: Denies Use Review of Systems Pulmonary: No Dyspnea, No Cough Cardiovascular: No: Chest Pain Gastrointestinal: No: Nausea, Vomiting Exam Vital Signs Date Time Temp Pulse Resp B/P (MAP) Pulse Ox O2 Delivery O2 Flow Rate FiO2 12/04/19 18:53 37.0 12/04/19 16:40 105 16 132/64 (86) 94 Room Air Capillary Refill : Less Than 3 Seconds General Appearance: no apparent distress Cardiovascular: regular rate, rhythm Respiratory: normal breath sounds Skin: other (R medial foot -- !.5 x 2.5 x 0.2 cm ulcer with base 100% slough. Surrounding maceration, blistering and erythema.) Results Laboratory Tests 12/03/19 19:49: Glucometer 233H 12/03/19 20:34: Glucometer 231H 12/03/19 20:44: Sodium Level 134L, Potassium Level 3.1L, Chloride Level 101, Carbon Dioxide Level 22, Anion Gap 11, Blood Urea Nitrogen 8, Creatinine 0.71, Estimat Glomerular Filtration Rate > 60, BUN/Creatinine Ratio 11, Glucose Level 208H, Calcium Level 8.4L 12/03/19 21:40: Glucometer 151H 12/03/19 22:48: Glucometer 187H 12/04/19 01:31: White Blood Count 18.1H, Red Blood Count 3.95L, Hemoglobin 11.0L, Hematocrit 33L , Mean Corpuscular Volume 83, Mean Corpuscular Hemoglobin 28, Mean Corpuscular Hemoglobin Concent 33, Red Cell Distribution Width 12.9, Platelet Count 357, Mean Platelet Volume 8.9, Neutrophils (%) (Auto) 81H, Lymphocytes (%) (Auto) 7L, Monocytes (%) (Auto) 11, Eosinophils (%) (Auto) 0, Basophils (%) (Auto) 0, Neutrophils # (Auto) 14.8H, Lymphocytes # (Auto) 1.2, Monocytes # (Auto) 2.0H, Eosinophils # (Auto) 0.1, Basophils # (Auto) 0.0, Sodium Level 130L, Potassium Level 4.0, Chloride Level 100, Carbon Dioxide Level 15L, Anion Gap 15H, Blood Urea Nitrogen 9, Creatinine 0.81, Estimat Glomerular Filtration Rate > 60, BU N/Creatinine Ratio 11, Glucose Level 275H, Calcium Level 8.1L, Corrected Calcium 9.1, Phosphorus Level 2.4, Magnesium Level 1.6, Total Bilirubin 0.5, Aspartate Amino Transf (AST/SGOT) 41H, Alanine Aminotransferase (ALT/SGPT) 21, Alkaline Phosphatase 222H, Total Protein 6.2L, Albumin 2.7L 12/04/19 05:27: White Blood Count 19.4H, Red Blood Count 4.01L, Hemoglobin 11.1L, Hematocrit 33L , Mean Corpuscular Volume 83, Mean Corpuscular Hemoglobin 28, Mean Corpuscular Hemoglobin Concent 33, Red Cell Distribution Width 12.9, Platelet Count 383, Mean Platelet Volume 9.0, Neutrophils (%) (Auto) 83H, Lymphocytes (%) (Auto) 7L, Monocytes (%) (Auto) 10, Eosinophils (%) (Auto) 0, Basophils (%) (Auto) 0, Neutrophils # (Auto) 16.0H, Lymphocytes # (Auto) 1.3, Monocytes # (Auto) 2.0H, Eosinophils # (Auto) 0.1, Basophils # (Auto) 0.0, Sodium Level 130L, Potassium Level 3.9, Chloride Level 100, Carbon Dioxide Level 17L, Anion Gap 13, Blood Urea Nitrogen 11, Creatinine 0.99, Estimat Glomerular Filtration Rate 56, BUN/Creatinine Ratio 11, Glucose Level 303H, Calcium Level 8.2L, Corrected Calcium 9.2, Phosphorus Level 2.3, Magnesium Level 1.9, Total Bilirubin 0.6, Aspartate Amino Transf (AST/SGOT) 48H, Alanine Aminotransferase (ALT/SGPT) 25, Alkaline Phosphatase 251H, Total Protein 6.3L, Albumin 2.8L, Lactic Acid Level 1.26, Beta-Hydroxybutyrate (Chem panel) 0.91H 12/04/19 05:35: Urine Color YELLOW, Urine Clarity CLOUDY, Urine pH 6.0, Urine Specific [place] 1 .020, Urine Protein 1+H, Urine Glucose (UA) 3+H, Urine Ketones 1+H, Urine Nitrite NEGATIVE, Urine Bilirubin NEGATIVE, Urine Urobilinogen 2.0, Urine Leukocyte Esterase 2+H, Urine RBC (Auto) TRACE-I, Urine RBC 5-10H, Urine WBC 50- 100H, Urine Squamous Epithelial Cells 10-25H, Urine Crystals NONE, Urine Bacteria MODERATEH, Urine Casts NONE, Urine Mucus LARGEH, Urine Yeast FEWH, Urine Culture Indicated YES 12/04/19 11:37: Glucometer 310H 12/04/19 12:05: Sodium Level 130L, Potassium Level 3.9, Chloride Level 99, Carbon Dioxide Level 19L, Anion Gap 12, Blood Urea Nitrogen 14, Creatinine 1.33H, Estimat Glomerular Filtration Rate 40, BUN/Creatinine Ratio 11, Glucose Level 297H, Calcium Level 8.6 12/04/19 16:44: Glucometer 249H Microbiology 12/03/19 MRSA Screen - Final, Complete MRSA not isolated 12/03/19 Blood Culture - Preliminary, Resulted Gram Positive Cocci Microbiology 12/03/19 MRSA Screen - Final, Complete MRSA not isolated 12/03/19 Blood Culture - Preliminary, Resulted Gram Positive Cocci 12/03/19 Blood Culture - Preliminary, Resulted No growth Assessment/Plan/Dx 1. Diabetic foot ulcer, R medial foot, Hunt Grade 2. 2. Sepsis. 3. Uncontrolled diabetes. Plan: Silver alginate dressings are ordered. Will follow in hospital. LELO UGARTE MD Dec 04, 2019 19:14
[2019-12-04] MEDS ORDERED: TROUGH ORDER-PHARMACY XX NR (21:00)
[2019-12-05] MEDS: PIPERACILLIN/TAZO 4.5 GM/NS 100 ML IV SCH ×6 (01:51→18:54)
[2019-12-05 03:40] VITALS: BP 112/70
[2019-12-05 04:14] LABS: HEMOGLOBIN 11.9 G/DL (11.5-16.0); MEAN PLATELET VOLUME 8.9 FL (7.4-10.4); RED CELL DISTRIBUTION WIDTH 13.5 % (10.0-14.5); WHITE BLOOD COUNT 19.9 10^3/uL (4.3-11.0)
[2019-12-05 04:32] LABS: CALCIUM 8.5 MG/DL (8.5-10.1); CREATININE SERUM 2.2 MG/DL (0.60-1.30); MAGNESIUM 2.2 MG/DL (1.6-2.4); PHOSPHORUS 2.9 MG/DL (2.3-4.7); POTASSIUM 3.2 MMOL/L (3.6-5.0)
[2019-12-05] MEDS: inSUlin ASPART (NovoLOG) 1 UNIT/0.01 ML (CHARGE PER UNIT) SC SCH ×4 (04:49→21:43)
[2019-12-05] MEDS: MAGNESIUM 1 GM/100 ML IVPB 100 ML IV SCH (04:49)
[2019-12-05] MEDS: POTASSIUM CL 10MEQ/50ML IVPB 50 ML IV SCH (04:49)
[2019-12-05] MEDS: KCL 20 MEQ TAB (K-DUR) PO SCH (04:49)
--- NOTE | 2019-12-05 07:12 | Pulmonary Progress Note ---
Subjective Time Seen by a Provider: 07:10 Sepsis Event Evaluation Height, Weight, BMI Height: '" Weight: lbs. oz. kg; 25.23 BMI Method: Focused Exam Lactate Level 12/03/19 11:44: Lactic Acid Level 1.51 12/04/19 05:27: Lactic Acid Level 1.26 Exam Exam Vital Signs Date Time Temp Pulse Resp B/P (MAP) Pulse Ox O2 Delivery O2 Flow Rate FiO2 12/05/19 03:40 36.7 82 18 112/70 (84) 93 Room Air 12/05/19 01:00 79 12/04/19 23:50 37.9 95 18 99/65 (76) 97 Room Air 12/04/19 22:54 37.8 12/04/19 22:30 37.6 Room Air 12/04/19 22:27 37.6 12/04/19 21:00 98 Room Air 12/04/19 20:00 37.0 88 20 118/72 (87) 97 Room Air 12/04/19 19:00 87 12/04/19 18:53 37.0 12/04/19 16:41 37.9 12/04/19 16:40 37.9 105 16 132/64 (86) 94 Room Air 12/04/19 16:36 90 25 132/64 (86) Room Air 12/04/19 13:00 99 23 100/59 (73) 95 Room Air 12/04/19 12:45 99 12/04/19 12:31 100 Room Air 12/04/19 12:00 87 21 119/63 (81) 97 Room Air 12/04/19 11:00 84 23 127/82 (97) 98 Room Air 12/04/19 10:00 86 23 128/62 (84) 95 Room Air 12/04/19 09:00 96 16 111/68 (82) 96 Room Air 12/04/19 08:00 93 26 95/55 (68) 95 Room Air 12/04/19 07:55 36.7 12/04/19 07:51 100 Room Air I & O 12/05/19 07:00 Intake Total 2870 ml Output Total 400 ml Balance 2470 ml Height & Weight Height: '" Weight: lbs. oz. kg; 25.23 BMI Method: General Appearance: No Apparent Distress, WD/WN HEENT: PERRL/EOMI, Pharynx Normal Neck: Normal Inspection, Supple Respiratory: Lungs Clear, No Respiratory Distress Cardiovascular: Regular Rate, Rhythm, No Murmur Capillary Refill: Less Than 3 Seconds Gastrointestinal: normal bowel sounds, non tender, soft Extremity: Other (interior aspect of right foot with erythema and warmth- improved per patient) Neurologic/Psychiatric: Alert, Oriented x3 Skin: Warm/Dry, Erythema Results Lab Laboratory Tests 12/03/19 11:10 12/03/19 14:00 12/03/19 16:00 12/03/19 20:44 12/04/19 01:31 12/04/19 05:27 12/04/19 12:05 12/05/19 03:49 Assessment/Plan Assessment/Plan Acute DKA -Per hospitalist managment. -May need to restart DKA protocol -Check urine ketones Hypokalemia -Replace Diabetic foot ulcer with cellulitis with sepsis -Pt is on Vanco and Zosyn -Repeat MAGDALENA LALA DO Dec 05, 2019 07:12
[2019-12-05] MEDS ORDERED: POTASSIUM CL 10MEQ/50ML IVPB 50 ML IV SCH (07:15)
[2019-12-05 07:28] VITALS: BP 157/81
[2019-12-05] MEDS ORDERED: LACTATED RINGERS 1,000 ML IV ONE (07:42)
[2019-12-05] MEDS: LACTATED RINGERS 1,000 ML IV SCH ×3 (07:50→21:43)
--- NOTE | 2019-12-05 08:15 | NUR ---
VANCOMYCIN TROUGH 21.5 ON 12/03 @ 2099 (12/03 2199 DOSE NOT GIVEN). CLIN CALC: CHANGED DOSE TO VANCOMYCIN 750 MG Q12H BEGINNING WITH 12/04 1000 DOSE. Addendum: 12/05/19 at 0830 by BALBIR MCCOY [facility] VANCOMYCIN TROUGH DUE 12/05 @ 2099. IF TROUGH >20, HOLD DOSE AND NOTIFY PHARMACY FOR ADJUSTMENTS.
--- NOTE | 2019-12-05 08:27 | NUR ---
PT UNABLE TO TOLERATE POTASSIUM INFUSING AT 10MEQ PER HOUR. LR INFUSING AT 150. POTASSIUM SLOWED TO 5MEQ. WILL MONITOR TOLERANCE.
--- NOTE | 2019-12-05 08:51 | Progress Note - Hospitalist ---
Subjective HPI/CC On Admission Date Seen by Provider: Dec 05, 2019 Time Seen by Provider: 08:47 Patricia Morgan is a 69 year old female with no known past medical history who presented with a right foot wound. She reports that she developed a blister on the inside of her right foot on . Since then it has progressed and opene d with surrounding redness. She denies any pain. She denies numbness. She denies fevers and chills. She has had no nausea or vomiting. She denies shortness of breath and cough. She denies chest pain. She denies abdominal pain. She does not take any medications. She says she had a workup done when she went to the dentist and everything was normal. She does not follow with a doctor. She has a strong family history of diabetes. She does not smoke, drink alcohol, or use illicit drugs. Subjective/Events-last exam Pt reports feeling ok. Would like to go home. Discussed renal function and need to stay to continue to monitor. She has also started having watery diarrhea. Focused Exam Lactate Level 12/03/19 11:44: Lactic Acid Level 1.51 12/04/19 05:27: Lactic Acid Level 1.26 Objective Exam Vital Signs Vital Signs Date Time Temp Pulse Resp B/P (MAP) Pulse Ox O2 Delivery O2 Flow Rate FiO2 12/05/19 08:05 Room Air 12/05/19 07:28 36.4 96 18 157/81 (106) 99 Capillary Refill : Less Than 3 Seconds General Appearance: No Apparent Distress, WD/WN Respiratory: Lungs Clear, No Respiratory Distress Cardiovascular: Regular Rate, Rhythm, No Murmur Gastrointestinal: Normal Bowel Sounds, Non Tender, Soft Neurologic/Psychiatric: Alert, Oriented x3, Normal Mood/Affect Results/Procedures Lab Laboratory Tests 12/04/19 12:05 12/05/19 03:49 Patient resulted labs reviewed. Imaging: Reviewed Imaging Report Assessment/Plan Assessment and Plan Assess & Plan/Chief Complaint Type 2 diabetes mellitus with ketoacidosis- ketoacidosis resolved Diabetic foot ulcer Sepsis -New onset diabetes- will need education- orders placed -DKA resolved, off insulin gtt - Continue Levemir but will decrease dose given hypoglycemia overnight -SSI -Continue on Vanc and Zosyn, Vanc at decreased dose due to high trough - Wound care consulted, appreciate recs -XR with no evidence of osteomyelitis -A1C 14.4 JANNIE - Creatinine up to 2.2 - Continue IVF - Trend - Lisinopril held - Monitor UOP Diarrhea - Check C diff - Start probiotic DVT Prophylaxis: Lovenox Critical Care Critically Ill Patient Diagnosis/Problems Diagnosis/Problems (1) T2DM (type 2 diabetes mellitus) Status: Acute Qualifiers: Diabetes mellitus prison insulin use: without prison use Diabetes mellitus complication status: with skin complications Diabetes mellitus complication detail: with foot ulcer Qualified Codes: E11.621 - Type 2 diabetes mellitus with foot ulcer; L97.509 - Non-pressure chronic ulcer of other part of unspecified foot with unspecified severity (2) DKA (diabetic ketoacidoses) Status: Acute Qualifiers: Diabetes mellitus complication detail: without coma (3) Cellulitis of right foot Status: Acute (4) Sepsis Status: Acute Qualifiers: Sepsis type: sepsis due to unspecified organism Sepsis acute organ dysfunction status: without acute organ dysfunction Qualified Codes: A41.9 - Sepsis, unspecified organism Clinical Quality Measures DVT/VTE Risk/Contraindication: Risk Factor Score Per Nursin RFS Level Per Nursing on Admit: 4+=Very High EARL MCLAUGHLIN MD Dec 05, 2019 08:51
[2019-12-05] MEDS ORDERED: KCL 20 MEQ TAB (K-DUR) PO ONE (09:45)
[2019-12-05] MEDS ORDERED: VANCOMYCIN INJECTION 750 MG in NS (IVPB) 250 ML IV SCH (10:00)
[2019-12-05 11:35] VITALS: BP 163/85
[2019-12-05] MEDS: LACTOBACILLUS ACIDOPHILUS (PROBIOTIC) CAPSULE PO SCH ×2 (11:52→18:54)
--- NOTE | 2019-12-05 12:03 | NUR ---
CM/SS: Visited with pt as to plan for discharge, establishing a new physician, and new diagnosis of being diabetic Plan: Pt to return home, it undetermined as to service at this time Summary: Pt reports having a good day. Pt reports she is a new diabetic. She reports that there is a family history of being diabetic and that this has been a wake up call for her. Pt reports she will do whatever it is that they ask of her to do to be compliant. Discuss the need for pt to get a new doctor. Pt verbalizes understanding and is given a list of new physicians. 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 Pt never and did not have any children. She does have a sister that lives in [place]. Other siblings lives out of the area. Pt reports that she likes to cook. She is open to cooking and the recipes being diabetic friendly. She has talked with the dietitian and hopes to gets some more information about her eating and cooking. Pt seems motivated to learn, and get to feeling better, as she does not like hospitals. Pt thanked this worker for visiting with her. She is encouraged if something changes and she would need something to let this worker know. This worker will follow up. Addendum: 12/05/19 at 1406 by CLAY OSEGUERA SS Diabetic Education packet is given to pt. Information briefly explained to pt. Pt verbalized understanding and appreciation for the information.
[2019-12-05] MEDS ORDERED: MENTHOL 1.75 OZ JAR (VICKS VAPORUB) TP PRN (12:15)
[2019-12-05] MEDS: ENOXAPARIN 30 MG/0.3 ML (LOVENOX) SYR SC SCH (15:26)
[2019-12-05 16:00] VITALS: BP 165/90
[2019-12-05] MEDS ORDERED: ONDANSETRON 4 MG/2 ML (SDV) Z0FRAN ONE (18:49)
--- NOTE | 2019-12-05 19:10 | Wound Care Assessment ---
Wound Care Assessment Date Seen by Provider: Dec 05, 2019 Time Seen by Provider: 19:06 Chief Complaint R foot ulcer. HPI The patient is a 69 year old female, previously undiagnosed diabetic, who presented to the ER with an infected ulcer of the R foot, in ketoacidosis. She is much improved with antibiotics and insulin. The wound began as a blister. There is no history of trauma to the area. No clear etiology for wound, other than diabetes. The wound is not debrided. Will follow as inpatient and as out-patient. 12/05/19 Interval Note: Less pain in foot. Less erythema. the wound is stable with no new tissue loss. Continue silver alginate dressings. Past Medical History: Admits Diabetes Type II Smoking Status: Never a Smoker Recreational Drug Use: No Alcohol Use: Denies Use Review of Systems Pulmonary: No Dyspnea Gastrointestinal: Nausea, Vomiting, Abdominal Pain Exam Vital Signs Date Time Temp Pulse Resp B/P (MAP) Pulse Ox O2 Delivery O2 Flow Rate FiO2 12/05/19 16:00 37.1 86 19 165/90 (115) 96 Room Air Capillary Refill : Less Than 3 Seconds General Appearance: mild distress Respiratory: no respiratory distress Extremities: other (R heel -- wound with stable eschar.) Results Laboratory Tests 12/04/19 20:56: Glucometer 277H 12/04/19 21:11: Vancomycin Level Trough 21.5H 12/05/19 01:57: Glucometer 81 12/05/19 03:49: Vancomycin Level Trough 19.1, White Blood Count 19.9H, Red Blood Count 4.35, Hemoglobin 11.9, Hematocrit 36, Mean Corpuscular Volume 83, Mean Corpuscular Hemoglobin 27, Mean Corpuscular Hemoglobin Concent 33, Red Cell Distribution Width 13.5, Platelet Count 404H, Mean Platelet Volume 8.9, Sodium Level 134L, Potassium Level 3.2L, Chloride Level 104, Carbon Dioxide Level 18L, Anion Gap 12, Blood Urea Nitrogen 18, Creatinine 2.20H, Estimat Glomerular Filtration Rate 22, BUN/Creatinine Ratio 8, Glucose Level 83, Calcium Level 8.5, Phosphorus Level 2.9, Magnesium Level 2.2, Beta-Hydroxybutyrate (Chem panel) 0.33H 12/05/19 10:08: Urine Ketones NEGATIVE 12/05/19 11:38: Glucometer 174H 12/05/19 15:30: Glucometer 242H Microbiology 12/04/19 Urine Culture - Final, Complete YEAST 12/03/19 MRSA Screen - Final, Complete MRSA not isolated 12/03/19 Blood Culture - Preliminary, Resulted Staphylococcus epidermidis 12/03/19 Gram Stain - Final, Resulted 12/03/19 Wound Culture - Preliminary, Resulted Strep agalactiae Group B Probable Staph Aureus Probable Klebsiella/Enterobact Microbiology 12/04/19 Urine Culture - Final, Complete YEAST Assessment/Plan/Dx 1. Diabetic foot ulcer, R medial foot, Hunt Grade 2. 2. Uncontrolled diabetes. Plan: Silver alginate dressings are ordered. Will follow in hospital. LELO UGARTE MD Dec 05, 2019 19:09
[2019-12-05 20:00] VITALS: BP 170/92
[2019-12-05] MEDS: ONDANSETRON 4 MG/2 ML (SDV) Z0FRAN IVP PRN (23:16)
[2019-12-06] VITALS (7 sets, daily range): BP systolic 146–181; BP diastolic 75–92
[2019-12-06] MEDS: PIPERACILLIN/TAZO 4.5 GM/NS 100 ML IV SCH ×6 (02:45→21:48)
[2019-12-06 04:16] LABS: MEAN PLATELET VOLUME 8.8 FL (7.4-10.4); RED CELL DISTRIBUTION WIDTH 13.4 % (10.0-14.5)
[2019-12-06 04:33] LABS: CALCIUM 8.3 MG/DL (8.5-10.1); CREATININE SERUM 2.48 MG/DL (0.60-1.30); PHOSPHORUS 3.1 MG/DL (2.3-4.7); POTASSIUM 4.2 MMOL/L (3.6-5.0)
[2019-12-06] MEDS: ONDANSETRON 4 MG/2 ML (SDV) Z0FRAN IVP PRN ×2 (04:38→10:33)
[2019-12-06] MEDS: LACTATED RINGERS 1,000 ML IV SCH ×4 (04:44→19:53)
[2019-12-06] MEDS: KCL 20 MEQ TAB (K-DUR) PO SCH (05:04)
[2019-12-06] MEDS: POTASSIUM CL 10MEQ/50ML IVPB 50 ML IV SCH (05:04)
[2019-12-06] MEDS: inSUlin ASPART (NovoLOG) 1 UNIT/0.01 ML (CHARGE PER UNIT) SC SCH ×4 (05:04→20:43)
[2019-12-06] MEDS: MAGNESIUM 1 GM/100 ML IVPB 100 ML IV SCH (05:04)
--- NOTE | 2019-12-06 08:52 | Pulmonary Progress Note ---
Subjective Time Seen by a Provider: 08:47 Sepsis Event Evaluation Height, Weight, BMI Height: '" Weight: lbs. oz. kg; 25.23 BMI Method: Focused Exam Lactate Level 12/03/19 11:44: Lactic Acid Level 1.51 12/04/19 05:27: Lactic Acid Level 1.26 Exam Exam Vital Signs Date Time Temp Pulse Resp B/P (MAP) Pulse Ox O2 Delivery O2 Flow Rate FiO2 12/06/19 08:11 36.5 86 16 146/75 (98) 96 Room Air 12/06/19 04:29 36.6 79 20 173/90 (117) 97 Room Air 12/06/19 01:00 86 12/06/19 00:16 36.8 80 20 164/84 (110) 96 Room Air 12/05/19 21:00 Room Air 12/05/19 20:00 36.8 98 21 170/92 (118) 97 Room Air 12/05/19 19:00 92 12/05/19 16:00 37.1 86 19 165/90 (115) 96 Room Air 12/05/19 13:10 91 12/05/19 11:35 37.8 89 19 163/85 (111) 97 Room Air I & O 12/06/19 07:00 Intake Total 2855 ml Output Total 400 ml Balance 2455 ml Height & Weight Height: '" Weight: lbs. oz. kg; 25.23 BMI Method: General Appearance: No Apparent Distress, WD/WN HEENT: PERRL/EOMI, Pharynx Normal Neck: Normal Inspection, Supple Respiratory: Lungs Clear, No Respiratory Distress Cardiovascular: Regular Rate, Rhythm, No Murmur Capillary Refill: Less Than 3 Seconds Gastrointestinal: normal bowel sounds, non tender, soft Extremity: Other (interior aspect of right foot with erythema and warmth- improved per patient) Neurologic/Psychiatric: Alert, Oriented x3, Normal Mood/Affect Skin: Warm/Dry, Erythema Results Lab Laboratory Tests 12/04/19 12:05 12/05/19 03:49 12/06/19 04:00 Assessment/Plan Assessment/Plan DM II s/p DKA Diabetic foot ulcer with cellulitis with sepsis - Zosyn, Vanco Acute renal failure -Continue IVF LR 150cc/hr -Monitor Diarrhea -CDIff is negative MAGDALENA FAIR DO Dec 06, 2019 08:52
[2019-12-06] MEDS ORDERED: VANCOMYCIN INJECTION 0.1 MG in NS (IVPB) 250 ML IV SCH (09:00)
--- NOTE | 2019-12-06 09:06 | Progress Note - Hospitalist ---
Subjective HPI/CC On Admission Date Seen by Provider: Dec 06, 2019 Time Seen by Provider: 09:01 Patricia Morgan is a 69 year old female with no known past medical history who presented with a right foot wound. She reports that she developed a blister on the inside of her right foot on . Since then it has progressed and opene d with surrounding redness. She denies any pain. She denies numbness. She denies fevers and chills. She has had no nausea or vomiting. She denies shortness of breath and cough. She denies chest pain. She denies abdominal pain. She does not take any medications. She says she had a workup done when she went to the dentist and everything was normal. She does not follow with a doctor. She has a strong family history of diabetes. She does not smoke, drink alcohol, or use illicit drugs. Subjective/Events-last exam Pt reports nausea. Was having diarrhea overnight as well. C diff is negative. Started on probiotics yesterday. Focused Exam Lactate Level 12/03/19 11:44: Lactic Acid Level 1.51 12/04/19 05:27: Lactic Acid Level 1.26 Objective Exam Vital Signs Vital Signs Date Time Temp Pulse Resp B/P (MAP) Pulse Ox O2 Delivery O2 Flow Rate FiO2 12/06/19 08:11 36.5 86 16 146/75 (98) 96 Room Air Capillary Refill : Less Than 3 Seconds General Appearance: No Apparent Distress, WD/WN Respiratory: Lungs Clear, No Respiratory Distress Cardiovascular: Regular Rate, Rhythm, No Murmur Gastrointestinal: Normal Bowel Sounds, Soft Extremity: Other (right foot dressed in feli bandage with some erythema surrounding bandage, left heel with small dime sized ulcer without purulence or erythema, normal sensation bilaterally) Neurologic/Psychiatric: Alert, Oriented x3 Results/Procedures Lab Laboratory Tests 12/06/19 04:00 Patient resulted labs reviewed. Imaging: Reviewed Imaging Report Assessment/Plan Assessment and Plan Assess & Plan/Chief Complaint Type 2 diabetes mellitus with ketoacidosis- ketoacidosis resolved Diabetic foot ulcer Sepsis -New onset diabetes - Continue Levemir but will decrease dose given hypoglycemia overnight - SSI - Continue Zosyn and resume Vanc as she feels worse and has more erythema - Wound care consulted, appreciate recs - XR with no evidence of osteomyelitis - A1C 14.4 - Start diflucan for yeast in urine JANNIE ATN - Creatinine up to 2.48 today, hopeful it will start to decrease tomorrow - Continue IVF - Trend - Lisinopril held - Monitor UOP Diarrhea - C diff negative - Continue probiotic DVT Prophylaxis: Lovenox Critical Care Critically Ill Patient Diagnosis/Problems Diagnosis/Problems (1) T2DM (type 2 diabetes mellitus) Status: Acute Qualifiers: Diabetes mellitus chcf insulin use: without chcf use Diabetes mellitus complication status: with skin complications Diabetes mellitus complication detail: with foot ulcer Qualified Codes: E11.621 - Type 2 diabetes mellitus with foot ulcer; L97.509 - Non-pressure chronic ulcer of other part of unspecified foot with unspecified severity (2) DKA (diabetic ketoacidoses) Status: Resolved Qualifiers: Diabetes mellitus type: type 2 Diabetes mellitus complication detail: without coma Qualified Codes: E11.10 - Type 2 diabetes mellitus with ketoa cidosis without coma Resolution Date/Time: 12/06/19 @ 09:16 (3) Cellulitis of right foot Status: Acute (4) Sepsis Status: Acute Qualifiers: Sepsis type: sepsis due to unspecified organism Sepsis acute organ dysfunction status: without acute organ dysfunction Qualified Codes: A41.9 - Sepsis, unspecified organism (5) Candiduria Status: Acute Clinical Quality Measures DVT/VTE Risk/Contraindication: Risk Factor Score Per Nursin RFS Level Per Nursing on Admit: 4+=Very High EARL MCLAUGHLIN MD Dec 06, 2019 09:06
[2019-12-06] MEDS ORDERED: SCOPOLAMINE 1.5 MG (TRANSDERM-SCOP) PATCH ONE (10:08)
--- NOTE | 2019-12-06 10:12 | NUR ---
ptd vancomycin plan: started vancomycin 1 gram iv q48h to start 12/06 @ 1100, (last dose was given on 12/04 @ 1000), will repeat a trough level towards end of week if still on therapy and sooner if Scr/renal fxn changes. labs: scr 2.48 (trended up from 0.91 on admit) vancomycin levels 12/03 @ 2111 21.5, and 12/04 @ 0349 19.1 pharmacokinetic calc: kd ~ 0.0158 and t1/2 ~ 45 hours.
[2019-12-06] MEDS: LACTOBACILLUS ACIDOPHILUS (PROBIOTIC) CAPSULE PO SCH ×3 (10:33→17:52)
[2019-12-06] MEDS: FLUCONAZOLE 100 MG/50 ML IVPB IV SCH ×2 (10:34)
[2019-12-06] MEDS: ENOXAPARIN 30 MG/0.3 ML (LOVENOX) SYR SC SCH (15:54)
--- NOTE | 2019-12-06 18:57 | Wound Care Assessment ---
Wound Care Assessment Date Seen by Provider: Dec 06, 2019 Time Seen by Provider: 18:30 Chief Complaint R foot ulcer. HPI The patient is a 69 year old female, previously undiagnosed diabetic, who presented to the ER with an infected ulcer of the R foot, in ketoacidosis. She is much improved with antibiotics and insulin. The wound began as a blister. There is no history of trauma to the area. No clear etiology for wound, other than diabetes. The wound is not debrided. Will follow as inpatient and as out-patient. 12/05/19 Interval Note: Less pain in foot. Less erythema. the wound is stable with no new tissue loss. Continue silver alginate dressings. 12/06/19 Interval Note: there has been a marked deterioration in the wound of the R foot, with new areas of blistering, fluctuance, and necrosis. Suspect deep abscess. I would recommend surgical consultation for drainage. Past Medical History: Admits Diabetes Type II Smoking Status: Never a Smoker Recreational Drug Use: No Alcohol Use: Denies Use Review of Systems Pulmonary: No Dyspnea Gastrointestinal: Nausea, Vomiting, Abdominal Pain Exam Vital Signs Date Time Temp Pulse Resp B/P (MAP) Pulse Ox O2 Delivery O2 Flow Rate FiO2 12/06/19 17:24 36.8 89 18 159/80 (106) 97 Room Air Capillary Refill : Less Than 3 Seconds Respiratory: no respiratory distress Extremities: other (R medial foot - 11.5 x 2.5 x 0.2 cm area of blister, erythema, and necrotic eschar.) Results Laboratory Tests 12/05/19 20:25: Glucometer 198H 12/06/19 04:00: White Blood Count 19.0H, Red Blood Count 4.01L, Hemoglobin 11.0L, Hematocrit 33L , Mean Corpuscular Volume 82, Mean Corpuscular Hemoglobin 27, Mean Corpuscular Hemoglobin Concent 33, Red Cell Distribution Width 13.4, Platelet Count 409H, Mean Platelet Volume 8.8, Sodium Level 133L, Potassium Level 4.2, Chloride Level 104, Carbon Dioxide Level 16L, Anion Gap 13, Blood Urea Nitrogen 23H, Creatinine 2.48H, Estimat Glomerular Filtration Rate 19, BUN/Creatinine Ratio 9, Glucose Level 119H, Calcium Level 8.3L, Phosphorus Level 3.1, Magnesium Level 2.0 12/06/19 09:35: Glucometer 89 12/06/19 11:52: Glucometer 86 12/06/19 16:21: Glucometer 84 Microbiology 12/06/19 C. difficile GDH Antigen & Toxins - Final, Complete 12/04/19 Urine Culture - Final, Complete YEAST 12/03/19 MRSA Screen - Final, Complete MRSA not isolated 12/03/19 Blood Culture - Final, Complete Staphylococcus epidermidis 12/03/19 Gram Stain - Final, Resulted 12/03/19 Wound Culture - Preliminary, Resulted Mixed Bacterial Fany Strep agalactiae Group B Staphylococcus aureus Probable Klebsiella/Enterobact Microbiology 12/06/19 C. difficile GDH Antigen & Toxins - Final, Complete Assessment/Plan/Dx 1. Diabetic foot ulcer, R medial foot, Hunt Grade 2, with interval deterioration, on antibiotic coverage. 2. Abscess R foot. 3. Poorly controlled diabetes. Plan: Would recommend surgical consultation for drainage of abscess. LELO UGARTE MD Dec 06, 2019 18:57
[2019-12-06] MEDS: LOPERAMIDE 2 MG (IMODIUM) TABLET PO PRN (19:53)
[2019-12-06] MEDS ORDERED: TROUGH ORDER-PHARMACY XX NR (21:00)
[2019-12-07] VITALS (17 sets, daily range): BP systolic 89–182; BP diastolic 52–104
[2019-12-07] MEDS: LACTATED RINGERS 1,000 ML IV SCH ×3 (03:22→19:16)
[2019-12-07 03:37] LABS: HEMOGLOBIN 12.3 G/DL (11.5-16.0); WHITE BLOOD COUNT 20.4 10^3/uL (4.3-11.0)
[2019-12-07 03:52] LABS: POTASSIUM 4.2 MMOL/L (3.6-5.0)
[2019-12-07 03:53] LABS: CALCIUM 8.6 MG/DL (8.5-10.1)
[2019-12-07 03:57] LABS: PHOSPHORUS 3.8 MG/DL (2.3-4.7)
[2019-12-07 03:58] LABS: CREATININE SERUM 2.61 MG/DL (0.60-1.30)
[2019-12-07] MEDS: MAGNESIUM 1 GM/100 ML IVPB 100 ML IV SCH (04:11)
[2019-12-07] MEDS: POTASSIUM CL 10MEQ/50ML IVPB 50 ML IV SCH (04:11)
[2019-12-07] MEDS: inSUlin ASPART (NovoLOG) 1 UNIT/0.01 ML (CHARGE PER UNIT) SC SCH ×4 (04:12→21:15)
[2019-12-07] MEDS: KCL 20 MEQ TAB (K-DUR) PO SCH (04:12)
--- NOTE | 2019-12-07 05:59 | Pulmonary Progress Note ---
Subjective Time Seen by a Provider: 05:54 Subjective/Events-last exam Pt appears to have worsening sepsis and renal failure Sepsis Event Evaluation Height, Weight, BMI Height: '" Weight: lbs. oz. kg; 25.23 BMI Method: Exam Exam Vital Signs Date Time Temp Pulse Resp B/P (MAP) Pulse Ox O2 Delivery O2 Flow Rate FiO2 12/07/19 03:23 36.8 88 18 159/85 (109) 93 Room Air 12/07/19 01:00 85 12/07/19 00:00 155/84 (107) Room Air 12/06/19 23:30 36.9 104 22 181/92 (121) 94 Room Air 12/06/19 21:00 95 Room Air 12/06/19 20:00 36.7 96 20 166/87 (113) 95 Room Air 12/06/19 19:00 100 12/06/19 17:24 36.8 89 18 159/80 (106) 97 Room Air 12/06/19 12:24 80 12/06/19 12:10 36.4 81 18 168/84 (112) 99 Room Air 12/06/19 08:52 Room Air 12/06/19 08:11 36.5 86 16 146/75 (98) 96 Room Air 12/06/19 06:41 79 I & O 12/07/19 07:00 Intake Total 4300 ml Output Total 725 ml Balance 3575 ml Height & Weight Height: '" Weight: lbs. oz. kg; 25.23 BMI Method: General Appearance: No Apparent Distress, WD/WN HEENT: PERRL/EOMI, Pharynx Normal Neck: Normal Inspection, Supple Respiratory: Lungs Clear, No Respiratory Distress Cardiovascular: Regular Rate, Rhythm, No Murmur Capillary Refill: Less Than 3 Seconds Gastrointestinal: normal bowel sounds, non tender, soft Extremity: Other (right foot dressed in feli bandage with some erythema surrounding bandage, left heel with small dime sized ulcer without purulence or erythema, normal sensation bilaterally) Neurologic/Psychiatric: Alert, Oriented x3 Skin: Warm/Dry, Erythema Results Lab Laboratory Tests 12/06/19 04:00 12/07/19 02:57 Assessment/Plan Assessment/Plan DM II s/p DKA -repeat urine ketones and betahydroxybuterate secondary to worsening anion gapped metabolic acidosis -Will also check LA Diabetic foot ulcer with cellulitis with sepsis and worsening leukocytosis - Zosyn, Vanco -Change Vanco to zyvox and add Flagyl secondary to worsening sepsis and diarrhea -surgery and wound care are consulted Acute renal failure - worsening -check abdominal US -Control HTN -Check urine Na, Cr, eosinophils, and urea -Change Vancomycin to Zyvox -Continue IVF LR 150cc/hr -Monitor HTN -Start Lopressor and PRN hydralazine UTI with yeast -PT is on Diflucan Diarrhea -CDIff is negative -Stool cultures pending MAGDALENA FAIR DO Dec 07, 2019 05:59
[2019-12-07] MEDS ORDERED: hydrALAZINE (APESOLINE) 20 MG/ML VIAL IV PRN (06:15)
[2019-12-07 06:29] LABS: ALBUMIN 2.4 GM/DL (3.2-4.5)
[2019-12-07 06:30] LABS: AMYLASE 21 U/L (25-125); CHLORIDE 103 MMOL/L (98-107); POTASSIUM 4.3 MMOL/L (3.6-5.0); SODIUM 132 MMOL/L (135-145)
[2019-12-07 06:31] LABS: CALCIUM 8.2 MG/DL (8.5-10.1)
[2019-12-07 06:32] LABS: GLUCOSE 76 MG/DL (70-105); TOTAL PROTEIN 5.9 GM/DL (6.4-8.2)
[2019-12-07 06:33] LABS: CARBON DIOXIDE 17 MMOL/L (21-32)
[2019-12-07 06:34] LABS: BILIRUBIN,TOTAL 0.5 MG/DL (0.1-1.0)
[2019-12-07 06:35] LABS: ALKALINE PHOSPHATASE 218 U/L (40-136)
[2019-12-07 06:36] LABS: CREATININE SERUM 2.62 MG/DL (0.60-1.30); GFR ESTIMATED 18
[2019-12-07 06:37] LABS: BUN/CREATININE RATIO 9
[2019-12-07 06:38] LABS: ALANINE AMINOTRANSFERASE 14 U/L (0-55)
[2019-12-07 06:39] LABS: LIPASE < 4 U/L (8-78)
[2019-12-07] MEDS: metroNIDAZOLE 500MG/100ML IVPB 100 ML IV SCH ×3 (06:45→21:23)
--- NOTE | 2019-12-07 09:34 | Progress Note - Hospitalist ---
Subjective HPI/CC On Admission Date Seen by Provider: Dec 07, 2019 Time Seen by Provider: 09:29 Patricia Morgan is a 69 year old female with no known past medical history who presented with a right foot wound. She reports that she developed a blister on the inside of her right foot on . Since then it has progressed and opene d with surrounding redness. She denies any pain. She denies numbness. She denies fevers and chills. She has had no nausea or vomiting. She denies shortness of breath and cough. She denies chest pain. She denies abdominal pain. She does not take any medications. She says she had a workup done when she went to the dentist and everything was normal. She does not follow with a doctor. She has a strong family history of diabetes. She does not smoke, drink alcohol, or use illicit drugs. Subjective/Events-last exam Pt reports feeling better today. Less nausea and would like to eat. Focused Exam Lactate Level 12/07/19 06:00: Lactic Acid Level 1.26 Lactic Acid Level Objective Exam Vital Signs Vital Signs Date Time Temp Pulse Resp B/P (MAP) Pulse Ox O2 Delivery O2 Flow Rate FiO2 12/08/19 12:30 36.2 81 20 162/77 (105) 91 Room Air 12/08/19 10:40 2 Capillary Refill : Less Than 3 Seconds General Appearance: No Apparent Distress, WD/WN Respiratory: Lungs Clear, No Respiratory Distress Cardiovascular: Regular Rate, Rhythm, No Murmur Gastrointestinal: Normal Bowel Sounds, Non Tender, Soft Extremity: Swelling (right foot), Other (right foot with erythema and apparent abscess on medial aspect) Neurologic/Psychiatric: Alert, Oriented x3 Results/Procedures Lab Laboratory Tests 12/08/19 03:07 Patient resulted labs reviewed. Imaging: Reviewed Imaging Report Assessment/Plan Assessment and Plan Assess & Plan/Chief Complaint Type 2 diabetes mellitus with ketoacidosis- ketoacidosis resolved Diabetic foot ulcer with abscess Sepsis - New onset diabetes, A1C 14.4 - Continue Levemir - SSI - Continue Zosyn, Vanc switched to Zyvox and Flagyl added today - Wound care consulted, appreciate recs - XR with no evidence of osteomyelitis - Surgery consulted for evaluation of abscess- may need opening in the ER JANNIE ATN - Creatinine up to 2.62 today, trend - Continue IVF - Trend - Lisinopril held - Monitor UOP Diarrhea - C diff negative - Continue probiotic - Lipase negative DVT Prophylaxis: Lovenox Critical Care Critically Ill Patient Diagnosis/Problems Diagnosis/Problems (1) T2DM (type 2 diabetes mellitus) Status: Acute Qualifiers: Diabetes mellitus penitentiary insulin use: without termite control technician use Diabetes mellitus complication status: with skin complications Diabetes mellitus complication detail: with foot ulcer Qualified Codes: E11.621 - Type 2 diabetes mellitus with foot ulcer; L97.509 - Non-pressure chronic ulcer of other part of unspecified foot with unspecified severity (2) DKA (diabetic ketoacidoses) Status: Resolved Qualifiers: Diabetes mellitus type: type 2 Diabetes mellitus complication detail: without coma Qualified Codes: E11.10 - Type 2 diabetes mellitus with ketoacidosis without coma Resolution Date/Time: 12/06/19 @ 09:16 (3) Cellulitis of right foot Status: Acute (4) Sepsis Status: Acute Qualifiers: Sepsis type: sepsis due to unspecified organism Sepsis acute organ dysfunction status: without acute organ dysfunction Qualified Codes: A41.9 - Sepsis, unspecified organism (5) Candiduria Status: Acute (6) JANNIE (acute kidney injury) Status: Acute (7) Abscess Status: Acute Clinical Quality Measures DVT/VTE Risk/Contraindication: Risk Factor Score Per Nursin RFS Level Per Nursing on Admit: 4+=Very High EARL MCLAUGHLIN MD Dec 07, 2019 09:34
[2019-12-07] MEDS: LACTOBACILLUS ACIDOPHILUS (PROBIOTIC) CAPSULE PO SCH ×3 (09:39→18:16)
[2019-12-07] MEDS: meTOprolol TARTRATE 25 MG (LOPRESSOR) TABLET PO SCH ×2 (09:39→21:15)
[2019-12-07] MEDS: LINEZOLID IVPB 300 ML IV SCH ×2 (09:40→21:15)
[2019-12-07] MEDS: FLUCONAZOLE 100 MG/50 ML IVPB IV SCH ×2 (09:40)
--- NOTE | 2019-12-07 09:46 | Diagnostic Imaging Report ---
INDICATION: Renal failure with nausea and vomiting and elevated liver function tests. PROCEDURE: Ultrasound abdomen complete. TECHNIQUE: Multiple real-time grayscale images were obtained of the abdomen in various projections. Liver is normal in size at 16 cm. No discrete liver mass is detected. The portal vein is patent and shows normal direction of flow. Gallbladder does contain small stones. No definite wall thickening or biliary ductal dilatation is identified. Pancreas is unremarkable. The spleen is normal in size at 10.5 cm. Proximal aorta is non-aneurysmal. The mid and distal aorta were obscured by bowel gas. IVC is patent. The kidneys are normal in size and demonstrate normal cortical thickness and echogenicity. Minimal caliectasis is noted of the right kidney. There is trace ascites present. IMPRESSION: 1. Cholelithiasis without evidence of acute cholecystitis. 2. Minimal ascites. Dictated by: Dictated on workstation # [id number]
[2019-12-07] MEDS ORDERED: TROUGH ORDER-PHARMACY XX NR (10:00)
[2019-12-07] MEDS: PIPERACILLIN/TAZO 4.5 GM/NS 100 ML IV SCH ×4 (10:51→21:24)
[2019-12-07] MEDS ORDERED: VANCOMYCIN 1 GM/NS 250 ML IVPB IV SCH ×2 (11:00)
--- NOTE | 2019-12-07 11:15 | NUR ---
Pastoral care visit.
[2019-12-07 11:25] LABS: CREATININE,URINE 49 MG/DL (30-125)
[2019-12-07 13:02] LABS: BILIRUBIN,URINE NEGATIVE (NEGATIVE); CLARITY,URINE CLOUDY; COLOR,URINE DARK YELLOW; GLUCOSE, URINE (UA) NEGATIVE (NEGATIVE); KETONES,URINE NEGATIVE (NEGATIVE); NITRITE,URINE NEGATIVE (NEGATIVE); PROTEIN,URINE NEGATIVE (NEGATIVE)
[2019-12-07 13:03] LABS: LEUKOCYTE ESTERASE ,URINE 1+ (NEGATIVE)
[2019-12-07 13:09] LABS: BACTERIA,URINE MODERATE /HPF; WBC,URINE 25-50 /HPF
[2019-12-07 13:10] LABS: AMORPHOUS SEDIMENT,UR LARGE AMOR URATES /LPF
[2019-12-07] MEDS ORDERED: LACTATED RINGERS 1,000 ML IV PRN (13:39)
[2019-12-07] MEDS: ENOXAPARIN 30 MG/0.3 ML (LOVENOX) SYR SC SCH (14:41)
--- NOTE | 2019-12-07 16:44 | Progress Note-Pre Operative ---
Pre-Operative Progress Note H&P Reviewed The H&P was reviewed, patient examined and no changes noted. Date Seen by Provider: Dec 07, 2019 Time Seen by Provider: 16:30 Date H&P Reviewed: Dec 07, 2019 Time H&P Reviewed: 16:30 Pre-Operative Diagnosis: right foot and ankle abscess and necrosis LAURY CHOWDARY MD Dec 07, 2019 16:44
--- NOTE | 2019-12-07 16:50 | CONSULTATION REPORT ---
DATE OF SERVICE: 12/07/2019 CONSULTING PHYSICIAN: Dr. Coppola. HISTORY OF PRESENT ILLNESS: The patient is a 69-year-old female who initially presented with right foot wound. She had reported developing a blister on the medial aspect of the right foot along the foot arch. She states that she opened this on her own and then this progressed to redness, erythema and pain. She was admitted for cellulitis and placed on IV antibiotics. Over time, she has developed worsening redness, erythema as well as the development of fluctuance and overlying eschar consistent with an abscess as well as necrotic tissue. She does not report any past medical history. However, she was found to have a profoundly high glucose and found to be in diabetic ketoacidosis. She also does have some level of renal insufficiency and transferred to the ICU. Again upon examination, she does have an abscess as well as an overlying necrotic skin and subcutaneous tissue and we will schedule her for debridement under anesthesia. PAST MEDICAL HISTORY: Diabetes. PAST SURGICAL HISTORY: None. ALLERGIES: No known drug allergies. MEDICATIONS: None. SOCIAL HISTORY: Negative smoke, negative alcohol. FAMILY HISTORY: Noncontributory. VITAL SIGNS: Temperature 36.8, blood pressure 176/86, pulse 80, respirations 29, pulse ox 96% on 2 liters nasal cannula. REVIEW OF SYSTEMS: Well-nourished female currently in no acute distress. She is not experiencing any shortness of breath or difficulty breathing. No chest pain, palpitations, diaphoresis. She does have intermittent episodes of nausea, no vomiting. No cough or sputum production. No history of constipation, no red blood per rectum, no dark tarry stools. No fever, chills, no recent inadvertent weight loss. All other review of systems negative. PHYSICAL EXAMINATION: CHEST: Clear. Good breath sounds bilaterally. HEART: Regular, no murmurs. EXTREMITIES: No lower extremity edema, negative Homans sign. SKIN: Along the right foot extending into the overlying ankle is redness, erythema and fluctuance consistent with an abscess as well as overlying skin necrosis and we will proceed with an incision and drainage as well as debridement of the devitalized skin and subcutaneous tissue in the operating room under controlled setting as well as adequate anesthesia. Job ID: [id number] DocumentID: [id number] Dictated Date: 12/07/2019 16:38:33 Inspector Exhaust Emissions Date: 12/07/2019 16:49:37 Dictated By: LAURY CHOWDARY MD
[2019-12-07] MEDS: ACETAMINOPHEN 325 MG TABLET PO PRN (22:14)
[2019-12-08] VITALS (19 sets, daily range): BP systolic 123–167; BP diastolic 59–86
[2019-12-08] MEDS: LACTATED RINGERS 1,000 ML IV SCH ×4 (01:56→20:02)
[2019-12-08 03:16] LABS: HEMOGLOBIN 10.7 G/DL (11.5-16.0); MEAN PLATELET VOLUME 8.4 FL (7.4-10.4); RED CELL DISTRIBUTION WIDTH 13.5 % (10.0-14.5); WHITE BLOOD COUNT 15.5 10^3/uL (4.3-11.0)
[2019-12-08 03:25] LABS: CALCIUM 7.8 MG/DL (8.5-10.1)
[2019-12-08 03:29] LABS: PHOSPHORUS 3.9 MG/DL (2.3-4.7)
[2019-12-08 03:30] LABS: CREATININE SERUM 2.53 MG/DL (0.60-1.30)
[2019-12-08 03:32] LABS: MAGNESIUM 1.8 MG/DL (1.6-2.4)
[2019-12-08] MEDS: inSUlin ASPART (NovoLOG) 1 UNIT/0.01 ML (CHARGE PER UNIT) SC SCH ×4 (03:38→22:28)
[2019-12-08] MEDS: MAGNESIUM 1 GM/100 ML IVPB 100 ML IV SCH (03:38)
[2019-12-08] MEDS: POTASSIUM CL 10MEQ/50ML IVPB 50 ML IV SCH (03:38)
[2019-12-08] MEDS: KCL 20 MEQ TAB (K-DUR) PO SCH (03:38)
[2019-12-08] MEDS: metroNIDAZOLE 500MG/100ML IVPB 100 ML IV SCH ×3 (05:08→22:25)
--- NOTE | 2019-12-08 05:44 | Pulmonary Progress Note ---
Subjective Time Seen by a Provider: 05:36 Sepsis Event Evaluation Height, Weight, BMI Height: '" Weight: lbs. oz. kg; 25.23 BMI Method: Focused Exam Lactate Level 12/07/19 06:00: Lactic Acid Level 1.26 Exam Exam Vital Signs Date Time Temp Pulse Resp B/P (MAP) Pulse Ox O2 Delivery O2 Flow Rate FiO2 12/08/19 05:00 84 23 150/84 (106) 96 Room Air 12/08/19 04:00 80 21 148/77 (100) 92 Room Air 12/08/19 03:05 37.2 Room Air 12/08/19 03:05 94 Room Air 12/08/19 03:00 85 16 160/85 (110) 96 Room Air 12/08/19 02:00 98 23 123/68 (86) 95 Room Air 12/08/19 01:00 89 18 134/61 (85) 95 Room Air 12/08/19 01:00 82 12/08/19 00:00 80 27 133/78 (96) 93 Room Air 12/07/19 23:10 37.1 Room Air 12/07/19 23:10 95 Room Air 12/07/19 23:00 86 23 128/74 (92) 97 Room Air 12/07/19 23:00 37.1 12/07/19 22:00 101 20 151/72 (98) 97 Room Air 12/07/19 21:00 91 27 166/92 (116) 97 Room Air 12/07/19 20:00 82 21 160/78 (105) 92 Room Air 12/07/19 19:30 92 Room Air 12/07/19 19:00 37.2 91 18 158/52 (87) 92 Room Air 12/07/19 19:00 81 12/07/19 18:00 76 48 173/74 (107) 92 Nasal Cannula 2.00 12/07/19 17:00 84 48 182/84 (116) 96 Nasal Cannula 2.00 12/07/19 16:00 74 18 165/71 (102) 90 Nasal Cannula 2.00 12/07/19 15:59 Nasal Cannula 2.00 12/07/19 15:00 80 29 176/86 (116) 96 Nasal Cannula 2.00 12/07/19 14:00 92 36 159/92 (114) 97 Nasal Cannula 2.00 12/07/19 13:16 80 12/07/19 13:00 73 22 145/76 (99) 92 Nasal Cannula 2.00 12/07/19 12:00 57 12 175/80 (111) 98 Nasal Cannula 2.00 12/07/19 12:00 Nasal Cannula 2.00 12/07/19 11:00 81 11 133/82 (99) 99 Nasal Cannula 2.00 12/07/19 10:00 79 16 174/104 (127) 98 Nasal Cannula 2.00 12/07/19 09:00 75 10 151/83 (105) 91 Nasal Cannula 2.00 12/07/19 08:00 Room Air 12/07/19 07:03 86 I & O 12/08/19 07:00 Intake Total 3370 ml Output Total 1230 ml Balance 2140 ml Height & Weight Height: '" Weight: lbs. oz. kg; 25.23 BMI Method: General Appearance: No Apparent Distress, WD/WN HEENT: PERRL/EOMI, Pharynx Normal Neck: Normal Inspection, Supple Respiratory: Lungs Clear, No Respiratory Distress Cardiovascular: Regular Rate, Rhythm, No Murmur Capillary Refill: Less Than 3 Seconds Gastrointestinal: normal bowel sounds, non tender, soft Extremity: Swelling (right foot), Other (right foot with erythema and apparent abscess on medial aspect) Neurologic/Psychiatric: Alert, Oriented x3 Skin: Warm/Dry, Erythema Results Lab Laboratory Tests 12/07/19 02:57 12/07/19 06:00 12/08/19 03:07 Assessment/Plan Assessment/Plan DM II s/p DKA -repeat urine ketones and betahydroxybuterate secondary to worsening anion ga pped metabolic acidosis -Will also check LA Diabetic foot ulcer with cellulitis with sepsis and worsening leukocytosis - Zosyn, zyvox, Flagyl -surgery and wound care are consulted Acute renal failure - -Control HTN -Vancomycin to Zyvox -Continue IVF LR 150cc/hr -Monitor HTN -Lopressor, norvasc and PRN hydralazine UTI with yeast -PT is on Diflucan Diarrhea -CDIff is negative -Stool cultures pending MAGDALENA FAIR DO Dec 08, 2019 05:44
[2019-12-08] MEDS ORDERED: LACTATED RINGERS 1,000 ML IV PRN (07:21)
[2019-12-08] MEDS: LACTOBACILLUS ACIDOPHILUS (PROBIOTIC) CAPSULE PO SCH ×3 (08:00→17:39)
[2019-12-08] MEDS: LINEZOLID IVPB 300 ML IV SCH ×2 (08:11→20:02)
--- NOTE | 2019-12-08 08:28 | Progress Note - Hospitalist ---
Subjective HPI/CC On Admission Date Seen by Provider: Dec 08, 2019 Time Seen by Provider: 08:27 Patricia Morgan is a 69 year old female with no known past medical history who presented with a right foot wound. She reports that she developed a blister on the inside of her right foot on . Since then it has progressed and opene d with surrounding redness. She denies any pain. She denies numbness. She denies fevers and chills. She has had no nausea or vomiting. She denies shortness of breath and cough. She denies chest pain. She denies abdominal pain. She does not take any medications. She says she had a workup done when she went to the dentist and everything was normal. She does not follow with a doctor. She has a strong family history of diabetes. She does not smoke, drink alcohol, or use illicit drugs. Subjective/Events-last exam Pt reports feeling better. No complaints. Plan for OR today. Focused Exam Lactate Level 12/07/19 06:00: Lactic Acid Level 1.26 Objective Exam Vital Signs Vital Signs Date Time Temp Pulse Resp B/P (MAP) Pulse Ox O2 Delivery O2 Flow Rate FiO2 12/08/19 08:00 82 18 138/79 (98) 91 Room Air 12/08/19 03:05 37.2 12/07/19 18:00 2.00 Capillary Refill : Less Than 3 Seconds General Appearance: No Apparent Distress, WD/WN Respiratory: Lungs Clear, No Respiratory Distress Cardiovascular: Regular Rate, Rhythm, No Murmur Neurologic/Psychiatric: Alert, Oriented x3 Results/Procedures Lab Laboratory Tests 12/08/19 03:07 Patient resulted labs reviewed. Imaging: Reviewed Imaging Report Assessment/Plan Assessment and Plan Assess & Plan/Chief Complaint Type 2 diabetes mellitus with ketoacidosis- ketoacidosis resolved Diabetic foot ulcer with abscess Sepsis - New onset diabetes, A1C 14.4 - Continue Levemir at 15 units - SSI - Continue Zosyn, Zyvox and Flagyl - Wound care consulted, appreciate recs - XR with no evidence of osteomyelitis - Surgery consulted for evaluation of abscess- may need opening in the ER JANNIE ATN - Creatinine down to 2.5 today - Continue IVF - Trend - Lisinopril held - Monitor UOP Diarrhea- improving - C diff negative - Continue probiotic - Lipase negative DVT Prophylaxis: Lovenox Critical Care Critically Ill Patient Diagnosis/Problems Diagnosis/Problems (1) T2DM (type 2 diabetes mellitus) Status: Acute Qualifiers: Diabetes mellitus terminal gauger insulin use: without terminal gauger use Diabetes mellitus complication status: with skin complications Diabetes mellitus complication detail: with foot ulcer Qualified Codes: E11.621 - Type 2 diabetes mellitus with foot ulcer; L97.509 - Non-pressure chronic ulcer of other part of unspecified foot with unspecified severity (2) DKA (diabetic ketoacidoses) Status: Resolved Qualifiers: Diabetes mellitus type: type 2 Diabetes mellitus complication detail: without coma Qualified Codes: E11.10 - Type 2 diabetes mellitus with ketoacidosis without coma Resolution Date/Time: 12/06/19 @ 09:16 (3) Cellulitis of right foot Status: Acute (4) Sepsis Status: Acute Qualifiers: Sepsis type: sepsis due to unspecified organism Sepsis acute organ dysfunction status: without acute organ dysfunction Qualified Codes: A41.9 - Sepsis, unspecified organism (5) Candiduria Status: Acute (6) JANNIE (acute kidney injury) Status: Acute (7) Abscess Status: Acute Clinical Quality Measures DVT/VTE Risk/Contraindication: Risk Factor Score Per Nursin RFS Level Per Nursing on Admit: 4+=Very High EARL MCLAUGHLIN MD Dec 08, 2019 08:28
[2019-12-08] MEDS: FLUCONAZOLE 100 MG/50 ML IVPB IV SCH ×2 (08:30)
[2019-12-08] MEDS ORDERED: LIDOCAINE PF 2% 5 ML (XYLOCAINE) VIAL ONE (09:00)
[2019-12-08] MEDS ORDERED: ONDANSETRON 4 MG/2 ML (SDV) Z0FRAN ONE (09:00)
[2019-12-08] MEDS ORDERED: proPOfol 200 MG/20 ML (DIPRIVAN) VIAL IV ONE (09:00)
[2019-12-08] MEDS ORDERED: fentaNYL INJECTION 100 MCG/2 ML AMP ONE (09:01)
[2019-12-08] MEDS ORDERED: MIDAZOLAM 2 MG/2 ML (VERSED) VIAL ONE (09:01)
[2019-12-08] MEDS ORDERED: BUP/EPI 0.5% 1:200,000 (MARCAINE) 10ML VIAL IJ ONE (09:02)
--- NOTE | 2019-12-08 09:05 | NUR ---
Pt left ICU to OR with OR crew
[2019-12-08] MEDS ORDERED: LACTATED RINGERS 1,000 ML IV SCH (09:45)
[2019-12-08] MEDS ORDERED: SEVOFLURANE (ULTANE) 15 ML INHAL SOLN ONE (09:56)
--- NOTE | 2019-12-08 10:13 | Progress Note-Post Operative ---
Post-Operative Progess Note Surgeon (s)/Aix Administrator (s) Surgeon LAURY CHOWDARY MD Aix Administrator: none Pre-Operative Diagnosis right foot and ankle abscess and necrosis Post-Operative Diagnosis full thickness necrosis skin, subcutaneous, fascia and muscle 14x6cm. Procedure & Operative Findings Date of Procedure 12/08/19 Procedure Performed/Findings debridement right foot skin subcutaneous, fascia, muscle 14x6cm. Anesthesia Type general LMA Estimated Blood Loss Estimated blood loss (mL): minimal Specimens/Packing Specimens Removed necrotic tissue right foot and ankle LAURY CHOWDARY MD Dec 08, 2019 10:13
[2019-12-08] MEDS ORDERED: SUCCINYLCHOLINE INJ 100 MG/5 ML SYR ONE (10:16)
[2019-12-08] MEDS ORDERED: morphine INJ 10 MG/ML 1ML (SYR OR VIAL) IVP ONE (10:30)
[2019-12-08] MEDS ORDERED: ONDANSETRON 4 MG/2 ML (SDV) Z0FRAN IVP PRN (10:30)
[2019-12-08] MEDS: meTOprolol TARTRATE 25 MG (LOPRESSOR) TABLET PO SCH ×2 (12:05→22:26)
[2019-12-08] MEDS: amLODIPine 10 MG (NORVASC) TAB PO SCH (12:05)
--- NOTE | 2019-12-08 12:15 | NUR ---
PT TO ROOM 4`18 -- REPORT FROM TRAVELER CHANGER -- NOTE LR AND IV ZOSYN WERE STARTED ON ROOM 418 BY TRAVELER CHANGER AND ICU STAFF BROUGHT PT'S LUNCH DOWN WITH HER AND SHE IS EATING
--- NOTE | 2019-12-08 12:15 | NUR ---
pt to room 418 via wheel chair with belongings. placed in chair at bedside to eat and introduced to room and call system. family at bedside. report given to Melissa JOEL.
[2019-12-08] MEDS: PIPERACILLIN/TAZO 4.5 GM/NS 100 ML IV SCH ×2 (12:32)
[2019-12-08] MEDS: ENOXAPARIN 30 MG/0.3 ML (LOVENOX) SYR SC SCH (14:09)
--- NOTE | 2019-12-08 18:25 | OPERATIVE REPORT ---
DATE OF SERVICE: 12/08/2019 CONSULTING PHYSICIAN: Dr. Coppola. PREOPERATIVE DIAGNOSES: New onset diabetes with full thickness necrosis of the right foot. POSTOPERATIVE DIAGNOSES: New onset diabetes with full thickness necrosis of the right foot with the skin, subcutaneous tissue, fascia and muscle involving superiorly towards the ankle and medial malleolus to the fat pad of the mid foot, 14 x 6 cm in size. PROCEDURE: Debridement of skin, subcutaneous tissue, fascia and muscle, right foot 14 x 6 cm. SURGEON: Laury Chowdary MD ANESTHESIA: General laryngeal mask airway. ESTIMATED BLOOD LOSS: Minimal. FINDINGS: A full thickness necrosis of the skin, subcutaneous tissue, fascia and muscle starting at the medial malleolus to the fat pad of the mid foot along the sole. DISPOSITION: The patient tolerated the procedure well. INDICATIONS: The patient is a 69-year-old female who initially presented with right foot wound. She had reported developing a blister on the medial aspect of the right foot along the foot arch. She opened this on her own and then progressed to redness, erythema and pain. She then was admitted for cellulitis and placed on IV antibiotics. Over time, she had developed worsening redness, erythema as development of fluctuance and overlying eschar consistent with necrotic tissue. She does not report any past medical history. However, she was found to have a profoundly high glucose as well as hemoglobin A1c and found to be in diabetic ketoacidosis. She also does have some level of renal insufficiency and was transferred to the ICU. DESCRIPTION OF PROCEDURE: The patient was brought to the operating room and the right foot was prepped and draped in standard surgical fashion. A 0.5% Marcaine with epinephrine was then used to anesthetize the overlying skin and subcutaneous tissue as well as the fascia. We then proceeded with an oval shaped incision starting at the medial malleolus superiorly and ending to the mid portion of the sole fat pad. We proceeded with a full thickness debridement of skin, subcutaneous tissue, fascia as well as portions of the muscle. This was done using a 15 blade as well as electrocautery with visualization of good hemostasis. All necrotic tissue was debrided back to good viable bleeding tissue. The wound was then packed wet to dry, followed by significant amount of Kerlix wrap, followed by 6-inch Jose Francisco wrap from the forefoot all the way to the knee. The patient tolerated the procedure well. We will recommend wet to dry dressings on a b.i.d. basis; however, she will eventually need a wound VAC to allow the large defect to granulate in by secondary intention. Job ID: [id number] DocumentID: [id number] Dictated Date: 12/08/2019 10:20:31 Enterer Date: 12/08/2019 18:24:21 Dictated By: LAURY CHOWDARY MD
[2019-12-08] MEDS: LOPERAMIDE 2 MG (IMODIUM) TABLET PO PRN (20:14)
[2019-12-09] VITALS: BP 148/83
[2019-12-09] MEDS: PIPERACILLIN/TAZO 4.5 GM/NS 100 ML IV SCH ×2
[2019-12-09 05:33] VITALS: BP 168/77
--- NOTE | 2019-12-09 06:05 | Pulmonary Progress Note ---
Subjective Time Seen by a Provider: 06:03 Subjective/Events-last exam No complications noted. Sepsis Event Evaluation Height, Weight, BMI Height: '" Weight: lbs. oz. kg; 25.23 BMI Method: Focused Exam Lactate Level 12/07/19 06:00: Lactic Acid Level 1.26 Exam Exam Vital Signs Date Time Temp Pulse Resp B/P (MAP) Pulse Ox O2 Delivery O2 Flow Rate FiO2 12/09/19 05:33 36.4 101 22 168/77 (107) 93 Room Air 12/09/19 00:00 36.0 92 22 148/83 (104) 91 Room Air 12/08/19 21:00 Room Air 12/08/19 20:00 36.3 85 22 148/81 (103) 98 Room Air 12/08/19 16:01 94 Room Air 12/08/19 16:00 36.0 80 18 166/78 (107) 95 Room Air 12/08/19 12:30 36.2 81 20 162/77 (105) 91 Room Air 12/08/19 12:20 94 Room Air 12/08/19 12:00 77 19 143/79 (100) 94 Room Air 12/08/19 12:00 94 Room Air 12/08/19 11:10 Room Air 12/08/19 11:00 77 139/71 (93) 93 Room Air 12/08/19 11:00 36.2 14 123/70 (87) 92 Room Air 12/08/19 10:58 Room Air 12/08/19 10:50 14 136/59 (84) 92 Room Air 12/08/19 10:48 Room Air 12/08/19 10:40 15 137/65 (89) 96 OxyMask 2 12/08/19 10:38 OxyMask 2 12/08/19 10:30 14 134/64 (87) 96 OxyMask 3 12/08/19 10:28 OxyMask 3 12/08/19 10:18 36.4 18 127/68 (87) 95 OxyMask 5 12/08/19 10:18 OxyMask 5 12/08/19 09:00 89 17 167/85 (112) 96 Room Air 12/08/19 08:00 94 Room Air 12/08/19 08:00 82 18 138/79 (98) 91 Room Air 12/08/19 07:00 81 12/08/19 07:00 78 20 148/75 (99) 90 Room Air I & O 12/09/19 07:00 Intake Total 4080 ml Output Total 600 ml Balance 3480 ml Height & Weight Height: '" Weight: lbs. oz. kg; 25.23 BMI Method: General Appearance: No Apparent Distress, WD/WN HEENT: PERRL/EOMI, Pharynx Normal Neck: Normal Inspection, Supple Respiratory: Lungs Clear, No Respiratory Distress Cardiovascular: Regular Rate, Rhythm, No Murmur Capillary Refill: Less Than 3 Seconds Gastrointestinal: normal bowel sounds, non tender, soft Extremity: Swelling (right foot), Other (right foot with erythema and apparent abscess on medial aspect) Neurologic/Psychiatric: Alert, Oriented x3 Skin: Warm/Dry, Erythema Results Lab Laboratory Tests 12/08/19 03:07 Assessment/Plan Assessment/Plan DM II s/p DKA Diabetic foot ulcer with cellulitis with sepsis and worsening leukocytosis - Zosyn, zyvox, Flagyl -surgery and wound care are consulted Acute renal failure - -Repeat labs pending -Control HTN -Vancomycin to Zyvox -Continue IVF LR 150cc/hr -Monitor HTN -Lopressor, norvasc and PRN hydralazine UTI with yeast -PT is on Diflucan Diarrhea -CDIff is negative -Stool cultures pending MAGDALENA FAIR DO Dec 09, 2019 06:05
[2019-12-09] MEDS: LACTATED RINGERS 1,000 ML IV SCH ×2 (06:21→10:28)
[2019-12-09] MEDS: metroNIDAZOLE 500MG/100ML IVPB 100 ML IV SCH ×3 (06:21→22:20)
[2019-12-09] MEDS: inSUlin ASPART (NovoLOG) 1 UNIT/0.01 ML (CHARGE PER UNIT) SC SCH ×4 (06:23→20:20)
[2019-12-09 07:00] LABS: HEMOGLOBIN 11.4 G/DL (11.5-16.0); MEAN PLATELET VOLUME 8.5 FL (7.4-10.4); RED CELL DISTRIBUTION WIDTH 13.8 % (10.0-14.5); WHITE BLOOD COUNT 15.9 10^3/uL (4.3-11.0)
[2019-12-09 07:49] LABS: ALBUMIN 2.5 GM/DL (3.2-4.5)
[2019-12-09 07:50] LABS: POTASSIUM 3.7 MMOL/L (3.6-5.0)
[2019-12-09 07:51] LABS: CALCIUM 7.8 MG/DL (8.5-10.1)
[2019-12-09] MEDS: POTASSIUM CL 10MEQ/50ML IVPB 50 ML IV SCH (07:51)
[2019-12-09 07:52] LABS: TOTAL PROTEIN 5.9 GM/DL (6.4-8.2)
[2019-12-09] MEDS: KCL 20 MEQ TAB (K-DUR) PO SCH (07:52)
[2019-12-09 07:54] LABS: BILIRUBIN,TOTAL 0.6 MG/DL (0.1-1.0)
[2019-12-09 07:55] LABS: PHOSPHORUS 3.7 MG/DL (2.3-4.7)
[2019-12-09 07:56] LABS: CREATININE SERUM 2.47 MG/DL (0.60-1.30)
[2019-12-09 07:58] LABS: MAGNESIUM 1.8 MG/DL (1.6-2.4)
[2019-12-09 08:00] VITALS: BP 155/84
[2019-12-09] MEDS: MAGNESIUM 1 GM/100 ML IVPB 100 ML IV SCH (08:05)
[2019-12-09] MEDS: FLUCONAZOLE 100 MG/50 ML IVPB IV SCH ×2 (10:26)
[2019-12-09] MEDS: amLODIPine 10 MG (NORVASC) TAB PO SCH (10:28)
[2019-12-09] MEDS: LINEZOLID IVPB 300 ML IV SCH ×2 (10:28→20:20)
[2019-12-09] MEDS: LACTOBACILLUS ACIDOPHILUS (PROBIOTIC) CAPSULE PO SCH ×3 (10:28→17:53)
[2019-12-09] MEDS: meTOprolol TARTRATE 25 MG (LOPRESSOR) TABLET PO SCH ×2 (10:28→20:19)
--- NOTE | 2019-12-09 11:13 | Physical Therapy Evaluation ---
PT Evaluation-General Medical Diagnosis Admission Date Dec 03, 2019 at 11:55 Medical Diagnosis: cellulitis right foot/uncontrolled DM Onset Date: Dec 03, 2019 Therapy Diagnosis Therapy Diagnosis: debility Precautions Precautions/Isolations: Fall Prevention, Standard Precautions Weight Bear Status Right Lower Extremity: Right Weight Bearing/Tolerated Left Lower Extremity: Left Full Weight Bearing Referral Physician: Abdon Reason for Referral: Evaluation/Treatment (verbal order) Medical History Pertinent Medical History: DM, Neuropathy Current History ER with right foot wound/abscess Reviewed History: Yes Social History Home: Apartment Current Living Status: Alone Entry Into Home: Level Entry Prior Prior Level of Function SCALE: Activities may be completed with or without assistive devices. 8-Uczupoovpj-yftmyen completes the activity by him/herself with no assistance from a helper. 5-Set-up or Clean-up Assistance-helper sets up or cleans up; patient completes activity. [place] assists only prior to or following the activity. 4-Supervision or Touching Assistance-helper provides verbal cues and/or touching/steadying and/or contact guard assistance as patient completes activity . Assistance may be provided throughout the activity or intermittently. 3-Partial/Moderate Assistance-helper does LESS THAN HALF the effort. [place] lifts, holds or supports trunk or limbs, but provides less than half the effort. 2-Substantial/Maximal Assistance-helper does MORE THAN HALF the effort. [place] lifts or holds trunk or limbs and provides more than half the effort. 8-Rioqjedac-ichesm does ALL the effort. Patient does none of the effort to complete the activity. Or, the assistance of 2 or more helpers is required for the patient to complete the activity. If activity was not attempted, code reason: 7-Patient Refused. 9-Not Applicable-not attempted and the patient did not perform the activity before the current illness, exacerbation or injury. 10-Not Attempted due to Environmental Limitations-(lack of equipment, weather restraints, etc.). 88-Not Attempted due to Medical Conditions or Safety Concerns. Bed Mobility: 6 Transfers (B,C,W/C): 6 Gait: 6 Indoor Mobility (Ambulation): Independent Prior Devices Use: None PT Evaluation-Current Subjective Patient agrees to PT. Pain Numeric Pain Scale: 0-No Pain Location: No Pain Reported Objective Patient Orientation: Person, Time, Situation Attachments: IV ROM/Strength ROM Lower Extremities right foot wrapped/LE WFL/ left LE WFL Strength Lower Extremities 3+/5 grossly bilateral LE Integumentary/Posture Integumentary refer to nursing notes Bowel Incontinence: No Bladder Incontinence: No Posture WFL Neuromuscular (Tone, Coordination, Reflexes) grossly intact Sensory Vision: Functional Hearing: Functional Sensation Right Lower Extremit: Impaired Sensation Left Lower Extremity: Impaired Transfers Roll Left to Right (QC): 6 Sit to Lying (QC): 6 Lying to Sitting/Side of Bed(Q: 6 Sit to Stand (QC): 6 Toilet Transfer (QC): 6 Gait Does the Patient Walk?: Yes Mode of Locomotion: Walk Anticipated Mode of Locomotion: Walk Walk 10 feet (QC): 6 Walk 50 ft with 2 Turns(QC): 6 Walk 150 ft (QC): 6 Gait Assistive Device: None Comments/Gait Description functional with steady gait sequence Balance Sitting Static: Normal Sitting Dynamic: Normal Standing Static: Fair Standing Dynamic: Fair Assessment/Needs Verbal order per Dr. Coppola to assess mobility. Patient is currently at [facility] with gross motor skills. PT will address functional mobility until dismissal to ensure safe return to home. Rehab Potential: Fair Post Rehab Potential-Barriers: compliance PT Short Term Goals Short Term Goals Time Frame: Dec 09, 2019 Roll Left & Right: 6 Sit to lyin Lying to sitting on side of be: 6 Sit to stand: 6 Chair/syg-eb-nvzsc transfer: 6 Toilet transfer: 6 Walk 10 feet: 6 Walk 50 feet with two turns: 6 Walk 150 feet: 6 PT Plan Problem List Problem List: Safety Treatment/Plan Treatment Plan: Continue Plan of Care Treatment Plan: Education, Functional Activity Reina, Group Therapy, Gait, Safety, Therapeutic Exercise Treatment Duration: Dec 15, 2019 Frequency: 5 times per week Estimated Hrs Per Day: .25 hour per day Patient and/or Family Agrees t: Yes Time/GCodes Time In: 1040 Time Out: 1051 Total Billed Treatment Time: 11 Total [facility] BR[facility] Dec 09, 2019 11:13
--- NOTE | 2019-12-09 11:42 | NUR ---
TRANSFER OF CARE TO DOUG JOEL.
--- NOTE | 2019-12-09 11:51 | Progress Note ---
Subjective Date Seen by a Provider: Dec 09, 2019 Time Seen by a Provider: 11:10 Subjective/Events-last exam Patient seen with Dr. Ricci. Patient reports doing well. Denies any pain as well as no fever or chills. Tolerating diet with no nausea or vomiting. Focused Exam Lactate Level 12/07/19 06:00: Lactic Acid Level 1.26 Objective Exam Vital Signs Date Time Temp Pulse Resp B/P (MAP) Pulse Ox O2 Delivery O2 Flow Rate FiO2 12/09/19 09:00 92 Room Air 12/09/19 08:00 36.1 101 24 155/84 (107) 92 Room Air 12/09/19 05:33 36.4 101 22 168/77 (107) 93 Room Air 12/09/19 00:00 36.0 92 22 148/83 (104) 91 Room Air 12/08/19 21:00 Room Air 12/08/19 20:00 36.3 85 22 148/81 (103) 98 Room Air 12/08/19 16:01 94 Room Air 12/08/19 16:00 36.0 80 18 166/78 (107) 95 Room Air 12/08/19 12:30 36.2 81 20 162/77 (105) 91 Room Air 12/08/19 12:20 94 Room Air 12/08/19 12:00 77 19 143/79 (100) 94 Room Air 12/08/19 12:00 94 Room Air I & O 12/09/19 07:00 Intake Total 4480 ml Output Total 600 ml Balance 3880 ml Capillary Refill : Less Than 3 SecondsNONE General Appearance: No Apparent Distress, WD/WN Neck: Full Range of Motion, Normal Inspection, Supple Respiratory: No Accessory Muscle Use, No Respiratory Distress Cardiovascular: Regular Rate, Rhythm, No Edema Gastrointestinal: normal bowel sounds, non tender, soft Extremity: Other (Right foot dressing in place. Dry and intact. There is some edeme of the right lower extremity approx 2-3+) Neurologic/Psychiatric: Alert, Oriented x3 Skin: Normal Color, Warm/Dry Results Lab Laboratory Tests 12/08/19 16:45: Glucometer 145H 12/08/19 21:16: Glucometer 237H 12/09/19 06:16: Glucometer 66L 12/09/19 06:35: White Blood Count 15.9H, Red Blood Count 4.15L, Hemoglobin 11.4L, Hematocrit 34L , Mean Corpuscular Volume 83, Mean Corpuscular Hemoglobin 27, Mean Corpuscular Hemoglobin Concent 33, Red Cell Distribution Width 13.8, Platelet Count 575H, Mean Platelet Volume 8.5, Sodium Level 134L, Potassium Level 3.7, Chloride Level 103, Carbon Dioxide Level 18L, Anion Gap 13, Blood Urea Nitrogen 20H, Creatinine 2.47H, Estimat Glomerular Filtration Rate 19, BUN/Creatinine Ratio 8, Glucose Level 68L, Calcium Level 7.8L, Corrected Calcium 9.0, Phosphorus Level 3.7, Magnesium Level 1.8, Total Bilirubin 0.6, Aspartate Amino Transf (AST/SGOT) 19, Alanine Aminotransferase (ALT/SGPT) 12, Alkaline Phosphatase 285H, Total Protein 5.9L, Albumin 2.5L Microbiology 12/08/19 Gram Stain - Final, Resulted 12/08/19 Anaerobic Culture, Resulted Pending 12/08/19 Surgical Culture - Preliminary, Resulted Strep, Beta Hemolytic Group B Gram Positive Arthur See Comments 12/07/19 Urine Culture - Preliminary, Resulted YEAST YEAST#2 Culture In Progress 12/07/19 MRSA Screen - Final, Complete MRSA not isolated 12/06/19 Blood Culture - Preliminary, Resulted No growth 12/06/19 C. difficile GDH Antigen & Toxins - Final, Complete Assessment/Plan Assessment/Plan Assess & Plan/Chief Complaint A 69 year old female with right foot abscess and necrosis who is S/P right foot debridement VSS WBC 15.9 - will continue to monitor IV abx, pain, and nausea meds Will proceed with dressing change tomorrow. Clinical Quality Measures DVT/VTE Risk/Contraindication: Risk Factor Score Per Nursin RFS Level Per Nursing on Admit: 4+=Very High KIRTI ENRIQUE TIMBER RIDER Dec 09, 2019 11:51
[2019-12-09 12:00] VITALS: BP 168/72
--- NOTE | 2019-12-09 12:24 | Progress Note - Hospitalist ---
Subjective HPI/CC On Admission Date Seen by Provider: Dec 09, 2019 Time Seen by Provider: 12:22 Patricia Morgan is a 69 year old female with no known past medical history who presented with a right foot wound. She reports that she developed a blister on the inside of her right foot on . Since then it has progressed and opene d with surrounding redness. She denies any pain. She denies numbness. She denies fevers and chills. She has had no nausea or vomiting. She denies shortness of breath and cough. She denies chest pain. She denies abdominal pain. She does not take any medications. She says she had a workup done when she went to the dentist and everything was normal. She does not follow with a doctor. She has a strong family history of diabetes. She does not smoke, drink alcohol, or use illicit drugs. Subjective/Events-last exam Pt reports feeling much better today. No new complaints. Focused Exam Lactate Level 12/07/19 06:00: Lactic Acid Level 1.26 Objective Exam Vital Signs Vital Signs Date Time Temp Pulse Resp B/P (MAP) Pulse Ox O2 Delivery O2 Flow Rate FiO2 12/09/19 09:00 92 Room Air 12/09/19 08:00 36.1 101 24 155/84 (107) 12/08/19 10:40 2 Capillary Refill : Less Than 3 SecondsNONE General Appearance: No Apparent Distress, WD/WN Respiratory: Lungs Clear, No Respiratory Distress Cardiovascular: Regular Rate, Rhythm, No Murmur Gastrointestinal: Normal Bowel Sounds, Non Tender, Soft Neurologic/Psychiatric: Alert, Oriented x3 Results/Procedures Lab Laboratory Tests 12/09/19 06:35 Patient resulted labs reviewed. Imaging: Reviewed Imaging Report Assessment/Plan Assessment and Plan Assess & Plan/Chief Complaint Type 2 diabetes mellitus with ketoacidosis- ketoacidosis resolved Diabetic foot ulcer with abscess Sepsis - New onset diabetes, A1C 14.4 - Continue Levemir - SSI - Continue Zosyn, Zyvox and Flagyl - Wound care consulted, appreciate recs - XR with no evidence of osteomyelitis - s/p drainage and debridement on 12/07 - Await operative cultures JANNIE ATN - Creatinine trending down- 2.43 today - Continue IVF, will decrease rate some giving slowly of BMs - Trend - Lisinopril held - Monitor UOP Diarrhea - C diff negative - Continue probiotic - Lipase negative DVT Prophylaxis: Lovenox Critical Care Critically Ill Patient Diagnosis/Problems Diagnosis/Problems (1) T2DM (type 2 diabetes mellitus) Status: Acute Qualifiers: Diabetes mellitus skilled nursing insulin use: without skilled nursing use Diabetes mellitus complication status: with skin complications Diabetes mellitus complication detail: with foot ulcer Qualified Codes: E11.621 - Type 2 diabetes mellitus with foot ulcer; L97.509 - Non-pressure chronic ulcer of other part of unspecified foot with unspecified severity (2) DKA (diabetic ketoacidoses) Status: Resolved Qualifiers: Diabetes mellitus type: type 2 Diabetes mellitus complication detail: without coma Qualified Codes: E11.10 - Type 2 diabetes mellitus with ketoacidosis without coma Resolution Date/Time: 12/06/19 @ 09:16 (3) Cellulitis of right foot Status: Acute (4) Sepsis Status: Acute Qualifiers: Sepsis type: sepsis due to unspecified organism Sepsis acute organ dysfunction status: without acute organ dysfunction Qualified Codes: A41.9 - Sepsis, unspecified organism (5) Candiduria Status: Acute (6) JANNIE (acute kidney injury) Status: Acute (7) Abscess Status: Acute Clinical Quality Measures DVT/VTE Risk/Contraindication: Risk Factor Score Per Nursin RFS Level Per Nursing on Admit: 4+=Very High EARL MCLAUGHLIN MD Dec 09, 2019 12:24
[2019-12-09] MEDS: ENOXAPARIN 30 MG/0.3 ML (LOVENOX) SYR SC SCH (15:11)
[2019-12-09 15:15] VITALS: BP 168/89
--- NOTE | 2019-12-09 19:45 | Anesthesia-General Post-Op ---
General Patient Condition Mental Status/LOC: Same as Preop Cardiovascular: Satisfactory Nausea/Vomiting: Absent Respiratory: Satisfactory Pain: Controlled Complications: Absent Post Op Complications Complications None Follow Up Care/Instructions Patient Instructions None needed. Anesthesia/Patient Condition Patient Condition Patient is doing well, no complaints, stable vital signs, no apparent adverse anesthesia problems. No complications reported per nursing. JUAN PARR CRNA Dec 09, 2019 19:45
[2019-12-09 20:11] VITALS: BP 160/91
[2019-12-10] VITALS (7 sets, daily range): BP systolic 132–181; BP diastolic 71–82
[2019-12-10] MEDS: LACTATED RINGERS 1,000 ML IV SCH ×2 (00:01→05:43)
[2019-12-10 05:27] LABS: MEAN PLATELET VOLUME 8.6 FL (7.4-10.4); RED CELL DISTRIBUTION WIDTH 13.8 % (10.0-14.5); WHITE BLOOD COUNT 15.1 10^3/uL (4.3-11.0)
[2019-12-10] MEDS: metroNIDAZOLE 500MG/100ML IVPB 100 ML IV SCH (05:43)
[2019-12-10 05:53] LABS: CALCIUM 8.4 MG/DL (8.5-10.1); CREATININE SERUM 2.43 MG/DL (0.60-1.30); MAGNESIUM 1.9 MG/DL (1.6-2.4); PHOSPHORUS 3.7 MG/DL (2.3-4.7)
[2019-12-10] MEDS: inSUlin ASPART (NovoLOG) 1 UNIT/0.01 ML (CHARGE PER UNIT) SC SCH ×4 (06:32→20:47)
[2019-12-10] MEDS: POTASSIUM CL 10MEQ/50ML IVPB 50 ML IV SCH (06:32)
[2019-12-10] MEDS: KCL 20 MEQ TAB (K-DUR) PO SCH (06:33)
[2019-12-10] MEDS: MAGNESIUM 1 GM/100 ML IVPB 100 ML IV SCH (06:33)
[2019-12-10] MEDS: amLODIPine 10 MG (NORVASC) TAB PO SCH (09:45)
[2019-12-10] MEDS: FLUCONAZOLE 100 MG/50 ML IVPB IV SCH ×2 (09:45)
[2019-12-10] MEDS: LINEZOLID IVPB 300 ML IV SCH ×2 (09:45→20:46)
[2019-12-10] MEDS: meTOprolol TARTRATE 25 MG (LOPRESSOR) TABLET PO SCH ×2 (09:45→20:47)
[2019-12-10] MEDS: LACTOBACILLUS ACIDOPHILUS (PROBIOTIC) CAPSULE PO SCH ×3 (09:45→16:22)
--- NOTE | 2019-12-10 11:41 | Progress Note ---
Subjective Date Seen by a Provider: Dec 10, 2019 Time Seen by a Provider: 09:40 Subjective/Events-last exam Patient seen with Dr. Ricci. Patient reports doing well with no complaints. Denies any pain. Tolerating diet and ambulating. Objective Exam Vital Signs Date Time Temp Pulse Resp B/P (MAP) Pulse Ox O2 Delivery O2 Flow Rate FiO2 12/10/19 08:00 35.9 96 24 148/81 (103) 92 Room Air 12/10/19 04:18 36.2 84 20 152/77 (102) 93 Room Air 12/10/19 00:00 36.3 89 21 160/81 (107) 92 Room Air 12/09/19 20:20 Room Air 12/09/19 20:11 36.8 101 20 160/91 (114) 93 Room Air 12/09/19 15:15 36.5 86 20 168/89 (115) 95 Room Air 12/09/19 12:00 36.2 78 24 168/72 (104) 93 Room Air I & O 12/10/19 07:00 Intake Total 4630 ml Output Total 450 ml Balance 4180 ml Capillary Refill : Less Than 3 SecondsLess Than 3 Seconds General Appearance: No Apparent Distress, WD/WN Neck: Full Range of Motion, Normal Inspection, Supple Respiratory: No Accessory Muscle Use, No Respiratory Distress Cardiovascular: Regular Rate, Rhythm, No Edema Gastrointestinal: normal bowel sounds, non tender, soft Extremity: Other (Left lateral and plantar foot wound. Good granulation tissue of wound bed. No signs of infection.) Neurologic/Psychiatric: Alert, Oriented x3 Skin: Normal Color, Warm/Dry Results Lab Laboratory Tests 12/09/19 12:50: Glucometer 96 12/09/19 15:28: Glucometer 104 12/09/19 20:09: Glucometer 136H 12/10/19 04:50: White Blood Count 15.1H, Red Blood Count 4.03L, Hemoglobin 11.0L, Hematocrit 34L , Mean Corpuscular Volume 84, Mean Corpuscular Hemoglobin 27, Mean Corpuscular Hemoglobin Concent 33, Red Cell Distribution Width 13.8, Platelet Count 573H, Mean Platelet Volume 8.6, Sodium Level 137, Potassium Level 4.0, Chloride Level 105, Carbon Dioxide Level 21, Anion Gap 11, Blood Urea Nitrogen 20H, Creatinine 2.43H, Estimat Glomerular Filtration Rate 20, BUN/Creatinine Ratio 8, Glucose Level 58*L, Calcium Level 8.4L, Phosphorus Level 3.7, Magnesium Level 1.9 12/10/19 06:40: Glucometer 81 Microbiology 12/08/19 Gram Stain - Final, Resulted 12/08/19 Anaerobic Culture, Resulted Pending 12/08/19 Surgical Culture - Preliminary, Resulted Strep, Beta Hemolytic Group B Gram Positive Arthur See Comments 12/07/19 Urine Culture - Preliminary, Resulted YEAST YEAST#2 Culture In Progress 12/07/19 MRSA Screen - Final, Complete MRSA not isolated 12/06/19 Blood Culture - Preliminary, Resulted No growth 12/06/19 C. difficile GDH Antigen & Toxins - Final, Complete Assessment/Plan Assessment/Plan Assess & Plan/Chief Complaint A 69 year old female with right foot abscess and necrosis who is S/P right foot debridement VSS WBC 15.1 - will continue to monitor IV abx, pain, and nausea meds Left foot dressing changed. Continue with medical management and wound care. Clinical Quality Measures DVT/VTE Risk/Contraindication: Risk Factor Score Per Nursin RFS Level Per Nursing on Admit: 4+=Very High KIRTI ENRIQUE [employer] Dec 10, 2019 11:41
--- NOTE | 2019-12-10 11:58 | Progress Note - Hospitalist ---
Subjective HPI/CC On Admission Date Seen by Provider: Dec 10, 2019 Time Seen by Provider: 11:54 Patricia Morgan is a 69 year old female with no known past medical history who presented with a right foot wound. She reports that she developed a blister on the inside of her right foot on . Since then it has progressed and opene d with surrounding redness. She denies any pain. She denies numbness. She denies fevers and chills. She has had no nausea or vomiting. She denies shortness of breath and cough. She denies chest pain. She denies abdominal pain. She does not take any medications. She says she had a workup done when she went to the dentist and everything was normal. She does not follow with a doctor. She has a strong family history of diabetes. She does not smoke, drink alcohol, or use illicit drugs. Subjective/Events-last exam Pt reports feeling well today. No complaints. Eating better. Blood sugar low this AM but asymptomatic. Objective Exam Vital Signs Vital Signs Date Time Temp Pulse Resp B/P (MAP) Pulse Ox O2 Delivery O2 Flow Rate FiO2 12/10/19 08:00 35.9 96 24 148/81 (103) 92 Room Air 12/08/19 10:40 2 Capillary Refill : Less Than 3 SecondsLess Than 3 Seconds General Appearance: No Apparent Distress, WD/WN Respiratory: Lungs Clear, No Respiratory Distress Cardiovascular: Regular Rate, Rhythm, No Murmur Neurologic/Psychiatric: Alert, Oriented x3 Results/Procedures Lab Laboratory Tests 12/10/19 04:50 Patient resulted labs reviewed. Imaging: Reviewed Imaging Report Assessment/Plan Assessment and Plan Assess & Plan/Chief Complaint Type 2 diabetes mellitus with ketoacidosis- ketoacidosis resolved Diabetic foot ulcer with abscess Sepsis - New onset diabetes, A1C 14.4 - Continue Levemir - SSI - Continue Zosyn, Zyvox and Flagyl - Wound care consulted, appreciate recs - XR with no evidence of osteomyelitis - s/p drainage and debridement on 12/07 - Await operative cultures for Id and sensitivities JANNIE ATN - Creatinine trending down- 2.43 today again - Continue IVF, will decrease rate some giving slowly of BMs - Trend - Lisinopril held - Monitor UOP Diarrhea - C diff negative - Continue probiotic - Lipase negative HTN - BP under adequate control, trend DVT Prophylaxis: Lovenox Critical Care Critically Ill Patient Diagnosis/Problems Diagnosis/Problems (1) T2DM (type 2 diabetes mellitus) Status: Acute Qualifiers: Diabetes mellitus intermediate frame tender insulin use: without assisted use Diabetes mellitus complication status: with skin complications Diabetes mellitus complication detail: with foot ulcer Qualified Codes: E11.621 - Type 2 diabetes mellitus with foot ulcer; L97.509 - Non-pressure chronic ulcer of other part of unspecified foot with unspecified severity (2) DKA (diabetic ketoacidoses) Status: Resolved Qualifiers: Diabetes mellitus type: type 2 Diabetes mellitus complication detail: without coma Qualified Codes: E11.10 - Type 2 diabetes mellitus with ketoacidosis without coma Resolution Date/Time: 12/06/19 @ 09:16 (3) Cellulitis of right foot Status: Acute (4) Sepsis Status: Acute Qualifiers: Sepsis type: sepsis due to unspecified organism Sepsis acute organ dysfunction status: without acute organ dysfunction Qualified Codes: A41.9 - Sepsis, unspecified organism (5) Candiduria Status: Acute (6) JANNIE (acute kidney injury) Status: Acute (7) Abscess Status: Acute Clinical Quality Measures DVT/VTE Risk/Contraindication: Risk Factor Score Per Nursin RFS Level Per Nursing on Admit: 4+=Very High EARL MCLAUGHLIN MD Dec 10, 2019 11:58
[2019-12-10] MEDS: ENOXAPARIN 30 MG/0.3 ML (LOVENOX) SYR SC SCH (16:22)
[2019-12-11 03:18] VITALS: BP 132/72
[2019-12-11] MEDS: LACTATED RINGERS 1,000 ML IV SCH (04:34)
[2019-12-11 05:06] LABS: HEMOGLOBIN 10.4 G/DL (11.5-16.0); MEAN PLATELET VOLUME 8.1 FL (7.4-10.4); RED CELL DISTRIBUTION WIDTH 14.4 % (10.0-14.5)
[2019-12-11 05:30] LABS: POTASSIUM 4.2 MMOL/L (3.6-5.0)
[2019-12-11 05:36] LABS: CREATININE SERUM 2.28 MG/DL (0.60-1.30); PHOSPHORUS 3.8 MG/DL (2.3-4.7)
[2019-12-11 05:39] LABS: MAGNESIUM 1.9 MG/DL (1.6-2.4)
[2019-12-11] MEDS: POTASSIUM CL 10MEQ/50ML IVPB 50 ML IV SCH (06:30)
[2019-12-11] MEDS: KCL 20 MEQ TAB (K-DUR) PO SCH (06:31)
[2019-12-11] MEDS: inSUlin ASPART (NovoLOG) 1 UNIT/0.01 ML (CHARGE PER UNIT) SC SCH ×2 (06:31→12:03)
[2019-12-11] MEDS: MAGNESIUM 1 GM/100 ML IVPB 100 ML IV SCH (06:31)
--- NOTE | 2019-12-11 07:24 | Pulmonary Progress Note ---
Subjective Time Seen by a Provider: 07:20 Subjective/Events-last exam Pt appears to be doing better. Sepsis Event Evaluation Height, Weight, BMI Height: '" Weight: lbs. oz. kg; 25.23 BMI Method: Exam Exam Vital Signs Date Time Temp Pulse Resp B/P (MAP) Pulse Ox O2 Delivery O2 Flow Rate FiO2 12/11/19 03:18 36.7 89 19 132/72 (92) 91 Room Air 12/10/19 23:58 36.6 97 20 138/78 (98) 90 Room Air 12/10/19 21:00 Room Air 12/10/19 20:34 36.8 103 21 145/80 (101) 91 Room Air 12/10/19 16:00 36.5 103 18 132/71 (91) 84 Room Air 12/10/19 12:00 36.0 89 24 181/82 (115) 89 Room Air 12/10/19 09:00 92 Room Air 12/10/19 08:00 35.9 96 24 148/81 (103) 92 Room Air I & O 12/11/19 07:00 Intake Total 2430 ml Balance 2430 ml Height & Weight Height: '" Weight: lbs. oz. kg; 25.23 BMI Method: General Appearance: No Apparent Distress, WD/WN HEENT: PERRL/EOMI, Pharynx Normal Neck: Full Range of Motion, Normal Inspection, Supple Respiratory: Lungs Clear, No Respiratory Distress Cardiovascular: Regular Rate, Rhythm, No Murmur Capillary Refill: Less Than 3 Seconds Gastrointestinal: normal bowel sounds, non tender, soft Extremity: Other Neurologic/Psychiatric: Alert, Oriented x3 Skin: Normal Color, Warm/Dry Results Lab Laboratory Tests 12/10/19 04:50 12/11/19 04:59 Assessment/Plan Assessment/Plan DM II s/p DKA Diabetic foot ulcer with cellulitis with sepsis and worsening leukocytosis - Zosyn, zyvox, Flagyl -surgery and wound care are consulted Mild hypoxia -Check CXR Acute renal failure -improving slowly -Control HTN -Zyvox -Continue IVF LR 150cc/hr -Monitor HTN -Lopressor, norvasc and PRN hydralazine UTI with yeast -PT is on Diflucan Diarrhea -CDIff is negative -Stool cultures pending MAGDALENA FAIR DO Dec 11, 2019 07:24
[2019-12-11 08:00] VITALS: BP 162/88
[2019-12-11] MEDS: LACTOBACILLUS ACIDOPHILUS (PROBIOTIC) CAPSULE PO SCH ×2 (08:36→12:03)
[2019-12-11] MEDS: meTOprolol TARTRATE 25 MG (LOPRESSOR) TABLET PO SCH (08:37)
[2019-12-11] MEDS: amLODIPine 10 MG (NORVASC) TAB PO SCH (08:37)
[2019-12-11] MEDS: LINEZOLID IVPB 300 ML IV SCH (08:37)
--- NOTE | 2019-12-11 09:16 | Diagnostic Imaging Report ---
INDICATION: Hypoxia. Comparison made with prior examination of 12/03/2019. FINDINGS: Heart size is normal. Moderate venous congestion. There are bibasilar infiltrates. There are bilateral pleural effusions. No pneumothorax. Mediastinum is unremarkable. IMPRESSION: Bibasilar infiltrates and bilateral pleural effusions. Moderate central pulmonary venous congestion. Dictated by: Dictated on workstation # [id number]
--- NOTE | 2019-12-11 10:00 | Physical Therapy Daily Note ---
PT Daily Note-Current Subjective Patient agrees to PT. Does c/o SOA with SAO2 88% RA at rest. Mental Status Patient Orientation: Person, Time, Situation Attachments: IV Transfers SCALE: Activities may be completed with or without assistive devices. 6-Znimlyqgix-lqjpxnf completes the activity by him/herself with no assistance from a helper. 5-Set-up or Clean-up Assistance-helper sets up or cleans up; patient completes activity. [place] assists only prior to or following the activity. 4-Supervision or Touching Assistance-helper provides verbal cues and/or touching/steadying and/or contact guard assistance as patient completes activit y. Assistance may be provided throughout the activity or intermittently. 3-Partial/Moderate Assistance-helper does LESS THAN HALF the effort. [place] lifts, holds or supports trunk or limbs, but provides less than half the effort. 2-Substantial/Maximal Assistance-helper does MORE THAN HALF the effort. [place] lifts or holds trunk or limbs and provides more than half the effort. 7-Uqitkviqx-okannw does ALL the effort. Patient does none of the effort to complete the activity. Or, the assistance of 2 or more helpers is required for the patient to complete the activity. If activity was not attempted, code reason: 7-Patient Refused. 9-Not Applicable-not attempted and the patient did not perform the activity before the current illness, exacerbation or injury. 10-Not Attempted due to Environmental Limitations-(lack of equipment, weather restraints, etc.). 88-Not Attempted due to Medical Conditions or Safety Concerns. Roll Left & Right (QC): 6 Sit to Lying (QC): 6 Lying to Sitting/Side of Bed(Q: 6 Sit to Stand (QC): 6 Weight Bearing Right Lower Extremity: Right Weight Bearing/Tolerated Left Lower Extremity: Left Full Weight Bearing Gait Training Does the Patient Walk?: Yes Distance: 250' Walk 10 feet (QC): 6 Walk 50 ft with 2 Turns(QC): 6 Walk 150 ft (QC): 6 Gait Assistive Device: None safe and functional with no deviation Assessment Patient had increase SOA with ambulation. Upon returning to room, patient nose was cyanotic with SAO2 77% RA. PT placed O2 3L NC with patient recovering after 2 minutes. RN and physician notified. Patient is currently at independent [facility] with all gross motor skills and is up independently in room. PT to dismiss patient from services at this time and nursing to continue to follow and ambulate PRN. RN notified. PT Short Term Goals Short Term Goals Time Frame: Dec 09, 2019 Roll Left & Right: 6 Sit to lyin Lying to sitting on side of be: 6 Sit to stand: 6 Chair/cgy-uh-aeqzq transfer: 6 Toilet transfer: 6 Walk 10 feet: 6 Walk 50 feet with two turns: 6 Walk 150 feet: 6 PT Plan Treatment/Plan Treatment Plan: Discontinue PT, goals met Treatment Plan: Education, Functional Activity Reina, Group Therapy, Gait, Safety, Therapeutic Exercise Treatment Duration: Dec 15, 2019 Frequency: 5 times per week Estimated Hrs Per Day: .25 hour per day Patient and/or Family Agrees t: Yes Time/GCodes Time In: 912 Time Out: 925 Total Billed Treatment Time: 13 Total Billed Treatment 1 visit FA 13 min BRICE LOO PT Dec 11, 2019 10:00
--- NOTE | 2019-12-11 10:02 | NUR ---
CM/SS: Visited with pt as to plan for discharge Plan: Pt to return home with [facility] and possible oxygen Summary: Pt reports she is feeling better. Pt does report some shortness of air as she just finished with physical therapy. Pt reports she is much, much better from Wednesday. Pt has requested to use [facility]. This worker will send over the information for home care services. Pt is being put back to bed by physical therapist. This worker will follow up.
[2019-12-11] MEDS ORDERED: AUGMENTIN 875 MG TAB (AMOXICILLIN/CLAVULANATE) PO SCH (11:26)
[2019-12-11] MEDS ORDERED: AUGMENTIN 500 MG TAB (AMOXICILLIN/CLAVULANATE) PO SCH (11:30)
[2019-12-11 12:04] VITALS: BP 155/91
[2019-12-11] MEDS ORDERED: METF-397 PO (13:03)
[2019-12-11] MEDS ORDERED: INSU100I10 SQ (13:03)
[2019-12-11] MEDS ORDERED: AMLO10TA7 PO (13:03)
[2019-12-11] MEDS ORDERED: METO-333 PO (13:03)
[2019-12-11] MEDS ORDERED: AMOX1TAB12 PO (13:03)
--- NOTE | 2019-12-11 14:06 | NUR ---
"RD ASSESSMENT PMHx: no significant PMH; new onset DM PT INTERACTION: Pt was awake and pleasant during nutrition follow-up. Pt states she has been eating fair since last assessment. Note avg PO intake 25-50% x3d, per chart review. Pt states some issues with nausea, vomiting, constipation, and diarrhea since last assessment. Note last BM was 12/09, and pt not currently on bowel regimen, per chart review. Note presence of wound (R foot), per chart review. ABNORMAL NUTRITION-RELATED LAB VALUES LOW: Ca 8.0 HIGH: cr 2.28; glu 133 Est. kcal needs: 1550 kcal | 20 kcal/kg Est. Pro needs: 62 g Pro | 0.8 g Pro/kg PES STATEMENT: Inadequate oral intake (NI-2.1) related to loss of appetite | nausea | vomiting | constipation | diarrhea as evidenced by pt interview | avg PO intake 25-50% x3d INTERVENTION: Continue with current diet order of CHO 60g/m 0snack diet, with modifier of DYS3 Advanced/GroundMeat. Add Glucerna (vary) to meals TID, for increased kcal and protein intake. Provides 220 kcal and 10 g Pro per serving. Encouraged pt to eat when able. Will continue to follow and reassess as pt needs, intake, and status change. MONITOR/EVALUATE: PO Intake; Plan of Care; Hydration Status; Weight Status; Lab Values Leslie Hamilton, MS, RD, LD"
--- NOTE | 2019-12-11 14:19 | NUR ---
SPO2 87% ON ROOM AIR @ REST. REPLACED O2 @ 2 LPM. SPO2 INCREASED TO 93%. Addendum: 12/11/19 at 1425 by FAWN GAVIN RT Amended: Links added.
--- NOTE | 2019-12-11 14:53 | Discharge Summary ---
Discharge Summary Reconcile Patient Problems Problems Reviewed?: Yes Instructions for Patient [facility], Assessment/Instructions take medications as prescribed. Complete her course of antibiotics even if you're feeling better. Begin taking insulin for diabetes. You will have home health for wound care. You need to establish care with a primary care physician and an appointment has been scheduled at the [facility]. Follow-up with Dr. Ricci, surgery, in about a week. Physician to follow Patient: [facility] Discharge Diet for Home: ADA Diet Hospital Course Date of Admission: Dec 03, 2019 at 11:55 Admission Diagnosis : sepsis due to cellulitis, type II diabetes mellitus with ketoacidosis Family Physician/Provider: [facility] Physician Date of Discharge: 12/11/19 Discharge Diagnosis: type II diabetes mellitus with ketoacidosis and sepsis due to diabetic foot ulcer/abscess Hospital Course: Patricia Morgan is a 69-year-old female who presented with a right foot wound and was admitted with diabetic ketoacidosis and sepsis due to cellulitis. She was started on IV antibiotics for infection. She was started on insulin drip for ketoacidosis. She was a newly diagnosed diabetic. She was set up with her insulin and metformin on discharge. Her foot wound worsened and she was found to have a developing abscess. Dr. Ricci, surgery, was consulted and performed an incision and drainage. Her wound culture had polymicrobial growth. She was transitioned to oral Augmentin. She was set up with home health care for ongoing wound care. She will follow up in Dr. Ricci's clinic in about a week. She'll establish care at [facility]. Labs and Pending Lab Test: Laboratory Tests 12/10/19 15:39: Glucometer 205H 12/10/19 20:34: Glucometer 148H 12/11/19 04:59: White Blood Count 12.0H, Red Blood Count 3.82L, Hemoglobin 10.4L, Hematocrit 32L , Mean Corpuscular Volume 84, Mean Corpuscular Hemoglobin 27, Mean Corpuscular Hemoglobin Concent 32, Red Cell Distribution Width 14.4, Platelet Count 549H, Mean Platelet Volume 8.1, Sodium Level 136, Potassium Level 4.2, Chloride Level 104, Carbon Dioxide Level 20L, Anion Gap 12, Blood Urea Nitrogen 17, Creatinine 2.28H, Estimat Glomerular Filtration Rate 21, BUN/Creatinine Ratio 7, Glucose Level 133H, Calcium Level 8.0L, Phosphorus Level 3.8, Magnesium Level 1.9 12/11/19 10:41: Glucometer 204H Microbiology 12/09/19 Stool Culture - Preliminary, Resulted 12/08/19 Gram Stain - Final, Resulted 12/08/19 Anaerobic Culture, Resulted Pending 12/08/19 Surgical Culture - Preliminary, Resulted Strep, Beta Hemolytic Group B Gram Positive Arthur Klebsiella pneumoniae See Comments 12/07/19 Urine Culture - Preliminary, Resulted YEAST YEAST#2 Culture In Progress 12/07/19 MRSA Screen - Final, Complete MRSA not isolated 12/06/19 Blood Culture - Preliminary, Resulted No growth Home Meds Active Metformin HCl 500 Mg Tablet 500 Mg PO DAILY 30 Days Lantus Solostar (Insulin Glargine,Hum.rec.anlog) 100 Unit/1 Ml Insuln.pen 5 Unit SQ HS 30 Days Amlodipine Besylate 10 Mg Tablet 10 Mg PO DAILY 30 Days Metoprolol Tartrate 25 Mg Tablet 25 Mg PO BID 30 Days Amox Tr-K Clv 875-125 mg Tab (Amoxicillin/Potassium Clav) 1 Each Tablet 875 Mg PO BID WITH MEALS 7 Days Reported Rolaids Chewable Tablet (Calcium Carb/Magnesium Hydrox) 1 Each Tab.chew 1-2 Each PO PRN PRN Aleve (Naproxen Sodium) 220 Mg Capsule 220 Mg PO Q8H PRN Consulations surgery Patient Allergies: Coded Allergies: No Known Drug Allergies (Unverified , 12/03/19) Home Health Need/Face to Face Date of Face to Face: Dec 11, 2019 Clinical Findings: Pain with ambulation, Wound infection I have seen Pt ydqb-ed-tkiv: Yes Discharged To: Home Diagnosis/Conditions: type II diabetes mellitus with foot ulcer and abscess Problems/Diagnosis/Condition: (1) Abscess (2) Cellulitis of right foot (3) T2DM (type 2 diabetes mellitus) (4) JANNIE (acute kidney injury) Patient is Homebound due to: Pain w/ambulation Homebound Status Due to the above stated illness, injury or surgical procedure (medical condition or diagnosis) and associated clinical findings, the patient is home bound because of his/her inability to leave home except with aid of a supportive device and/or person AND leaving the home requires a considerable and taxing effort or is medically contraindicated. Pt req the following assistanc: Aid of another person Home Health Nursing Orders Home Health Services Order: Nursing Services, Wound Care-Eval/Treat Home Health Infusion Therapy Line Start Date: Dec 06, 2019 Certify Stmt I certify that this patient is under my care and that I, a nurse practitioner or a physician; a dental assistant medical assistant working with me, had a face to face encounter that - meets the physician face to face encounter requirements with this patient as d ated. Discharge Physical Exam General: Alert, Oriented X3, Cooperative, No Acute Distress HEENT: Atraumatic, PERRLA, EOMI, Mucous Memb Moist/Zeba Lungs: Clear to Auscultation, Normal Air Movement Heart: Regular Rate, Normal S1, Normal S2, No Murmurs Abdomen: Normal Bowel Sounds, Soft, No Tenderness Extremities: No Edema, Other (right foot wound with dressing in place) Skin: Other (foot wound) Neuro: Normal Speech, Normal Tone Psych/Mental Status: Mental Status NL, Mood NL GRZEGORZ SHAFFER MD Dec 11, 2019 14:51
[2019-12-11] MEDS: ENOXAPARIN 30 MG/0.3 ML (LOVENOX) SYR SC SCH (15:00)
[2019-12-11 16:54] VITALS: BP 150/73
== END 2019-12-11 16:45 | disposition home or self-care (01) | DRG 853 ==
LOC: ER 11:08 → ICU 11:55 → CSD 12-04 16:51 → ICU 12-07 08:05 → 4TH 12-08 12:17
PROVIDERS: ADMIT Internal Medicine; ATTEND Internal Medicine
PROC: 0KBW0ZZ Excision of Left Foot Muscle, Open Approach (ICD-10-PCS; principal; 2019-12-08 09:17)
DX: A41.9 Sepsis, unspecified organism (principal); E11.10 Type 2 diabetes mellitus with ketoacidosis without coma; N17.0 Acute kidney failure with tubular necrosis; L03.115 Cellulitis of right lower limb; E87.2 Acidosis; N39.0 Urinary tract infection, site not specified; L02.612 Cutaneous abscess of left foot; E11.621 Type 2 diabetes mellitus with foot ulcer; L97.519 Non-pressure chronic ulcer of other part of right foot with unspecified severity; R09.02 Hypoxemia; I10 Essential (primary) hypertension; B96.89 Other specified bacterial agents as the cause of diseases classified elsewhere; R19.7 Diarrhea, unspecified
CPT/HCPCS: 36415; 71045; 73630; 76700; 76937; 80048; 80053; 80202; 81000; 81002; 82010; 82150; 82570; 82962; 83036; 83605; 83690; 83735; 84100; 84300; 84540; 85007; 85025; 85027; 85610; 85652; 85730; 86141; 87015; 87040; 87045; 87046; 87070; 87075; 87077; 87081; 87088; 87186; 87205; 87324; 87449; 87635; 87899; 94761; 96372; 96374; 96375

== ENCOUNTER 2020-01-31 09:14 | Inpatient (IN) | payer OTHER ==
[~2020-01-31] VITALS: Ht 160.2 cm; Wt 50.3 kg
[~2020-01-31 09:14] MED LIST: AMLO10TA7 PO; AMOX1TAB12 PO; CALC-921 PO; INSU100I10 SQ; METF-397 PO; METO-333 PO; NAPR220C11 PO
[2020-01-31] MEDS ORDERED: ONDANSETRON 4 MG/2 ML (SDV) Z0FRAN IVP PRN (10:30)
[2020-01-31] MEDS ORDERED: ACETAMINOPHEN 500 MG TAB (TYLENOL) PO PRN (10:30)
[2020-01-31] MEDS ORDERED: HYDROcodone/APAP 5 MG/325 MG (LORTAB) TAB PO PRN (10:30)
[2020-01-31] MEDS ORDERED: BISACODYL 10 MG SUPP (DULCOLAX) PR PRN (10:30)
[2020-01-31] MEDS ORDERED: LOPERAMIDE 2 MG (IMODIUM) TABLET PO PRN (10:30)
[2020-01-31] MEDS ORDERED: DOCUSATE SODIUM 100 MG (COLACE) CAP PO PRN (10:30)
[2020-01-31] MEDS ORDERED: diphenhydrAMINE 25 MG TAB (BENADRYL) PO PRN (10:30)
[2020-01-31] MEDS ORDERED: ALPRAZolam 0.25 MG (XANAX) TAB PO PRN (10:30)
[2020-01-31] MEDS ORDERED: MELATONIN 3 MG TABLET PO PRN (10:30)
[2020-01-31] MEDS ORDERED: CALCIUM CARBONATE 500 MG (TUMS) TAB.CHEW PO PRN (10:30)
--- NOTE | 2020-01-31 10:55 | NUR ---
BARTOLOME CADENA admitted to room 418-1, with an admitting diagnosis of severe hypokalemia, on 01/31/20 from [facility] in [place] via stretcher, accompanied by staff. BARTOLOME CADENA introduced to surroundings, call light, bed controls, phone, TV, temperature control, lights, meal times, smoking policy, visitor policy, side rail policy, bathrooms and showers. Patient Rights given to patient in the handbook. BARTOLOME CADENA verbalizes understanding that [facility] is not responsible for the loss or damage to any personal effects or valuables that are kept in the patients posession during their hospitalization.
[2020-01-31 11:01] VITALS: BP 141/84
--- NOTE | 2020-01-31 11:20 | NUR ---
After multiple IV attempts by this RN and Mamie JOEL day surg was consulted for a midline.
[2020-01-31 11:48] LABS: BASOPHILS % (AUTO) 0 % (0-10); EOSINOPHILS # (AUTO) 0.1 10^3/uL (0.0-0.3); EOSINOPHILS % (AUTO) 1 % (0-10); HEMATOCRIT 34 % (35-52); HEMOGLOBIN 11.4 g/dL (11.5-16.0); LYMPHOCYTES # (AUTO) 1.4 10^3/uL (1.0-4.0); LYMPHOCYTES % (AUTO) 17 % (12-44); MEAN CORPUSCULAR HEMOGLOBIN 27 pg (25-34); MEAN CORPUSCULAR HGB CONC 34 g/dL (32-36); MEAN CORPUSCULAR VOLUME 80 fL (80-99); MEAN PLATELET VOLUME 8.8 fL (9.0-12.2); MONOCYTES # (AUTO) 0.8 10^3/uL (0.0-1.0); MONOCYTES % (AUTO) 10 % (0-12); NEUTROPHILS # (AUTO) 5.8 10^3/uL (1.8-7.8); NEUTROPHILS % (AUTO) 71 % (42-75); PLATELET COUNT 355 10^3/uL (130-400); WHITE BLOOD COUNT 8.2 10^3/uL (4.3-11.0)
[2020-01-31] MEDS: POTASSIUM CL 10MEQ/50ML IVPB 50 ML IV SCH ×7 (12:04→20:41)
[2020-01-31] MEDS: NS IV 1000 ML 1,000 ML IV SCH ×3 (12:04→19:05)
[2020-01-31] MEDS: MAGNESIUM 1 GM/100 ML IVPB 100 ML IV SCH ×3 (12:04→15:55)
[2020-01-31] MEDS: ENOXAPARIN 40 MG/0.4 ML (LOVENOX) SYR SC SCH (12:05)
[2020-01-31 12:08] LABS: ALANINE AMINOTRANSFERASE 10 U/L (0-55); ALBUMIN 3.3 GM/DL (3.2-4.5); ALKALINE PHOSPHATASE 54 U/L (40-136); BILIRUBIN,TOTAL 0.8 MG/DL (0.1-1.0); BUN/CREATININE RATIO 13; CALCIUM 8.5 MG/DL (8.5-10.1); CARBON DIOXIDE 28 MMOL/L (21-32); CHLORIDE 91 MMOL/L (98-107); CREATININE SERUM 0.84 MG/DL (0.60-1.30); GFR ESTIMATED > 60; GLUCOSE 193 MG/DL (70-105); POTASSIUM 2.7 MMOL/L (3.6-5.0); SODIUM 133 MMOL/L (135-145); TOTAL PROTEIN 6.5 GM/DL (6.4-8.2)
--- NOTE | 2020-01-31 12:34 | NUR ---
Informed Dr. Luis that radiology would not be able to get the patient in for her barium swallow until tomorrow 01/31.
--- NOTE | 2020-01-31 13:18 | NUR ---
Still waiting for midline at this time. Pharmacy contacted to request ordered medications to be scheduled accordingly.
--- NOTE | 2020-01-31 13:39 | History & Physical-Hospitalist ---
LETY GARCIA MED STUDENT 01/31/20 1339: History of Present Illness HPI/Chief Complaint Ms. Morgan is a 69 y/o F with PMH of diabetes mellitus and allergies who was transferred fro [facility] for hypokalemia and dysphagia management/workup. She presented with a chief complaint of dizziness to [facility] on Sunday 01/28. She was found to have low potassium and was managed observational status there until transfer on 01/30 for persistent low potassium and workup of dysphagia. The patient said she was recently discharged from this hospital in [place] after treatment of a right lower foot cellulitis secondary to diabetes. She said that her foot is "fixed" and that around the time of discharge she started having some trouble swallowing. She said she was not able to swallow solid foods and could only swallow liquids or foods like jello, pudding. She said that this has been a constant problem over the past 2 months but that it has not worsened to the point of not being able to swallow liquids. She does say that she has to constantly spit up phlegm that is non-bloody. She reports that the food will get stuck around the cervical area pointing to mid-neck and she will spit up food if she tries to swallow it. She has lost 33 pounds since her swallowing symptoms started approximately 2 months ago. She said over the last 2 weeks she has had increasing dizziness, weakness and lightheadedness. She reports having fatigue. She denies any nausea, vomiting, bowel symptoms chest pain or shortness of breath. PMH: Diabetes Mellitus- diagnosed in November 2019 and managed with insulin and a blood pressure medication outpatient. She said her blood glucose has run 100-150 outpatient. 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 and her weakness FH: Thyroid cancer - thyroidectomy in grandma, cousin and aunt DM - brother, mom, grandmother "heart problems" - father medications: "BP and insulin" started in November 2019 allergies: NKDA No prior surgical history Source: patient Exam Limitations: no limitations Date Seen 01/31/20 Time Seen by a Provider: 11:40 Attending Physician Soha Landeros DO PCP No,Local Physician Referring Physician Date of Admission Jan 31, 2020 at 10:48 Home Medications & Allergies Home Medications Reviewed patient Home Medication Reconciliation performed by pharmacy medication reconciliations aerospace technician and/or nursing. Patients Allergies have been reviewed. Allergies Allergies Coded Allergies No Known Drug Allergies (Unverified12/03/19) Past Ozuueep-Vucthk-Lpceqh Hx Patient Social History Living Status: Lives at home alone Employed/Student: employed Alcohol Use: Denies Use Recreational Drug Use: No Smoking Status: Never a Smoker Recent Foreign Travel: No Contact w/other who traveled: No Recent Infectious Disease Expo: No Seasonal Allergies Seasonal Allergies: Yes Past Medical History Currently Using CPAP: No Currently Using BIPAP: No Endocrine: Diabetes, Insulin dep History of Blood Disorders: No Family History Heart Disease, Cancer (Thyroid cancer in 3 relatives), Diabetes Review of Systems Constitutional: No chills, No diaphoresis; dizziness; No fever; weakness, weight loss EENTM: hoarseness; No blurred vision, No mouth pain, No throat pain Respiratory: cough (Coughing up food when swallowed); No hemoptysis, No short of breath, No wheezing Cardiovascular: No chest pain, No edema, No syncope Gastrointestinal: No abdominal pain, No constipation, No diarrhea; dysphagia; No hematemesis, No heartburn; loss of appetite; No nausea; vomiting (Spitting up phlegm constantly) Genitourinary: No dysuria, No hematuria Musculoskeletal: No back pain, No muscle pain, No muscle stiffness, No muscle weakness, No neck pain Psychiatric/Neurological: Denies Headache; Weakness Physical Exam Physical Exam Vital Signs Vital Signs - First Documented Capillary Refill : Height, Weight, BMI Height: '" Weight: lbs. oz. kg; 19.59 BMI Method: General Appearance: Mild Distress Eyes: Bilateral Eye Normal Inspection, Bilateral Eye PERRL, Bilateral Eye EOMI, Bilateral Eye Conjunctivae Pale HEENT: PERRL/EOMI, Pharynx Normal, Moist Mucous Membranes Neck: Full Range of Motion, Normal Inspection, Non Tender; No Lymphadenopathy (L), No Lymphadenopathy (R), No Tender Lateral, No Tender Midline, No Thyromega ly Respiratory: Chest Non Tender, Lungs Clear, Normal Breath Sounds, No Accessory Muscle Use, No Respiratory Distress Cardiovascular: Regular Rate, Rhythm, No Edema, No Murmur, Normal Peripheral Pulses Gastrointestinal: Normal Bowel Sounds, No Organomegaly, No Pulsatile Mass, Non Tender, Soft Back: Normal Inspection, No CVA Tenderness Extremity: Normal Inspection, Normal Range of Motion, Non Tender, No Calf Tenderness Neurologic/Psychiatric: Alert, Oriented x3, No Motor/Sensory Deficits, Normal Mood/Affect, 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 Assessment/Plan Admission Diagnosis Dysphagia, hypokalemia Admission Status: Inpatient Order (span 2 midnights) Reason for Inpatient Admission: Dysphagia workup and management of severe hypokalemia Assessment and Plan Ms. Morgan is a 69 y/o F who was transferred for severe hypokalemia and dysphagia. Dysphagia - Solid foods only, 2 month duration, constant but not progressive, significant weight loss - Barium swallow study, EGD needed for evaluation - If EGD and barium are normal need to consider thyroid imaging with family history Severe hypokalemia - Likely related to patient's dehydrated and malnourished state from not eating solid foods the last 2 months - Will replace with IV potassium - Will also replace magnesium - On telemetry for monitoring EKG abnormalities Diabetes Mellitus - Continue insulin sliding scale while inpatient IVF for rehydration Will monitor electrolytes daily and replace as needed Dispo: Likely inpatient for the next couple days for dysphagia workup and low potassium SOHA LANDEROS DO 01/31/202110: History of Present Illness HPI/Chief Complaint CC: Severe dysphagia with 40lb weight loss and severe hypokalemia and hypomagnesemia HPI: This is a 69yoWF clinic Pt of [facility] who I accepted upon transfer to higher level of care from [facility] due to hypokalemia and unable to eat or drink very much and spitting out her saliva when collected in her oral-pharynx because of severe dysphagia. She has a PMH of a diabetic ulcer on her foot, she was admitted to [facility] in November. Dr. Ricci managed that. She had been doing pretty well with that but began having some dysphagia since that time to the point of only having beef broth and only sustaining herself on that for the last one [facility]. She has lost 40lbs. 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 Dr. Ricci will be consulted and we will replace potassium and magnesium through her IV and provide supportive care and IV fluids. She is so dehydrated they cant find an IV so a midline will be placed. Past Vbxyawr-Ilioyd-Pqhgap Hx Past Med/Social Hx: Reviewed Nursing Past Med/Soc Hx, Reviewed and Corrections made Patient Social History Marrital Status: single Employed/Student: employed Past Medical History Endocrine: Diabetes, Insulin dep Review of Systems Constitutional: see HPI EENTM: throat pain Physical Exam Physical Exam General Appearance: No Apparent Distress, Anxious, Chronically ill, Thin Respiratory: Lungs Clear Cardiovascular: Regular Rate, Rhythm Assessment/Plan Admission Diagnosis Assessment: Severe dysphagia Hypokalemia severe and refractory Hypomagnesemia Weight loss DM foot ulcer DM Plan: IVF Potassium Magnesium Admission Status: Inpatient Order (span 2 midnights) Reason for Inpatient Admission: severe dehydration from dysphagia and hypokalemia Diagnosis/Problems Diagnosis/Problems (1) Dysphagia (2) Weight loss (3) Hypokalemia (4) JANNIE (acute kidney injury) Status: Acute (5) T2DM (type 2 diabetes mellitus) Status: Acute Supervisory-Addendum Brief Verification & Attestation Participated in pt care: history, MDM, physical Personally performed: exam, history, MDM, supervision of care Care discussed with: Medical Student Procedures: n/a Results interpretation: Verified all documentation Verification and Attestation of Medical Student E/M Service A medical student performed and documented this service in my presence. I reviewed and verified all information documented by the medical student and made modifications to such information, when appropriate. I personally performed the physical exam and medical decision making. Soha Landeros, Jan 31, 2020,21:12 LETY GARCIA MED STUDENT Jan 31, 2020 13:39 SOHA LANDEROS DO Jan 31, 2020 21:11
[2020-01-31] MEDS ORDERED: FLUCONAZOLE 200 MG/100 ML 100 ML IV NR ×2 (13:45→16:00)
--- NOTE | 2020-01-31 13:47 | CONSULTATION REPORT ---
DATE OF SERVICE: 01/31/2020 ADMITTING PHYSICIAN: Dr. Luis. HISTORY OF PRESENT ILLNESS: The patient is a 69-year-old female known to us. We had initially seen her in 11/2019 for diagnosis of insulin-dependent diabetes and also diabetic ketoacidosis. She also had a significant wound of the right foot along the medial aspect including the ankle and the foot arch. She was placed on broad-spectrum IV antibiotics; however, the redness and fluctuance worsened over time. She underwent a wide debridement of the right foot as well as eventual wound VAC placement. She is admitted today due to dysphagia. She reports that this has been going on for some time; however, has worsened recently. She states that she has had some issues with reflux in the past; however, not severe. She does not report any hematemesis and no coffee ground emesis. She also states that her bowel movements have been normal. PAST MEDICAL HISTORY: Diabetes, right diabetic foot necrosis and gastroesophageal reflux disease. PAST SURGICAL HISTORY: Wide debridement, right foot. ALLERGIES: No known drug allergies. MEDICATIONS: Amlodipine 10 mg daily, Augmentin 875 mg b.i.d., insulin 5 units each day at bedtime, metformin 500 mg b.i.d. and metoprolol 25 mg b.i.d. SOCIAL HISTORY: Negative smoke and negative alcohol. FAMILY HISTORY: Noncontributory. REVIEW OF SYSTEMS: Well-nourished female currently in no acute distress. She is not experiencing any shortness of breath or difficulty breathing. No chest pain, palpitations or diaphoresis. Dysphagia, which has been slowly progressive with difficulty swallowing both solids and liquids. No hematemesis and no coffee ground emesis. No red blood per rectum and no dark tarry stools. No fever, chills with some weight loss in the past few weeks. All other review of systems is negative. PHYSICAL EXAMINATION: VITAL SIGNS: Temperature 35.4, blood pressure 141/84, pulse 117, respirations 20 and pulse ox 99% on room air. CHEST: Clear. Good breath sounds bilaterally. HEART: Regular and no murmurs. EXTREMITIES: No lower extremity edema and negative Homans sign. HEENT: No scleral icterus. NECK: No cervical lymphadenopathy. ABDOMEN: Soft and nondistended. There is mild discomfort in the epigastric region on deep palpation. No hernias. SKIN: Warm and dry. Right foot wound healing well with good granulation bed and no surrounding erythema of necrosis. LABORATORY DATA: WBC 8.2, hemoglobin 11.4, hematocrit 34 and platelets 355. BUN 11, creatinine 0.84. Liver function enzymes normal. ASSESSMENT AND PLAN: This is a 69-year-old female with significant dehydration and hypokalemia as well as dysphagia. She will undergo a swallow study; however, she will also need an EGD for definitive diagnosis. We will also evaluate her right foot for continued wound care. Job ID: [id number] DocumentID: [id number] Dictated Date: 01/31/2020 12:49:29 Configuration Management Consultant Date: 01/31/2020 13:47:10 Dictated By: LAURY CHOWDARY MD [facility]
[2020-01-31 13:50] VITALS: BP 141/84
[2020-01-31] MEDS ORDERED: RT-ALBUTEROL SULF 2.5 MG/3 ML PRE-MIX VIAL INH PRN (14:00)
--- NOTE | 2020-01-31 14:02 | ST Dysphagia Evaluation ---
Speech Evaluation-General Medical Diagnosis Dysphagia Onset Date: Jan 29, 2020 Therapy Diagnosis Therapy Diagnosis: Oropharyngeal Dysphagia Precautions Precautions: Aspiration Precautions/Isolations: Aspiration Referral Referring Physician: Dr. Luis Medical History Pertinent Medical History: DM, Neuropathy Reviewed History: Yes Speech PLF/Current-Dysphagia Prior Level of Function Patient reports she has been unable to eat solids with the exception of things like pudding, applesauce etc for the past 2 months. Subjective Patient was pleasant and cooperative with the Bedside Dysphagia Evaluation. Oral Motor Skills Current Food Consistancy: Dysphagia Soft, Thin Liquids Ability to Follow Directions: Good Patient has been eating only soft foods and thin liquids for approximately the past 2 months. Oral Expression Ability: No Impairment Voice Voice Phonatory-Based Quality: Normal Voice Pitch: Normal Voice Loudness: Mildly Soft/Quiet Face Facial Symmetry: Symmetrical Oral-Facial Assessment Oral-Facial Dentition: Normal Dysphagia Evaluation Consistencies Presented: Thin Liquid, Mechanical Soft, Pureed Oral phase is within normal limits for the presented consistencies. Pharyngeal phase is within normal limits for the presented consistencies. Dietary Recommendations: Pureed Liquid Recommendations: Thin Swallowing Precautions: Alternate Liquids/Solids, Double Swallow, Decreased Bolus 1/2 Tsp, Liquids from Straw, Liquids from Spoon, Small Bites and Sips, Sitting Upright 90 Degrees, Sitting 90 Degrees 30 Post Intake Dysphagia Evaluation Summary Patient is a pleasant 69 y/o female who was hospitalized in November 2019 for foot surgery secondary to DM. Patient states she began having swallowing problems just after returning home from that admission. The patient states it only goes so far down then "gets stuck". Dr. Ricci was present for assessment indicating that due to the patient having been on so many antibiotics she may have developed thrush in the esophageal area. He will be completing an EGD on the patient. At this time she is tolerating only thin liquids and puree foods. Recommendations are for Dysphagia I diet with thin liquids. ST will follow up with the patient post procedure. Barriers to Learning None identified Speech Short Term Goals Short Term Goals Short Term Goals 1) Patient will tolerate least restrictive diet level without s/s of aspiration at 90% or greater. 2) Patient will utilize compensatory strategies as trained with minimal cues. Speech Snf Goals Machine Feed Operator Goals Patient will maintain adequate nutrition/hydration via safe effective swallow function. Speech-Plan Patient/Family Goals Patient/Family Goals: Patient plans to return to her home upon discharge. Treatment Plan Speech Therapy Treatment Plan: Continue Plan of Care Treatment Duration: Feb 08, 2020 Frequency: 3 times per week Estimated Hrs Per Day: .25 hour per day Rehab Potential: Good Barriers to Learning: None identified Pt/Family Agrees to Plan: Yes Safety Risks/Education Teaching Recipient: Patient Teaching Methods: Demonstration, Discussion Response to Teaching: Verbalize Understanding, Return Demonstration Education Topics Provided: Safety of oral intake, diet level Time Speech Therapy Time In: 13:15 Speech Therapy Time Out: 13:35 Total Billed Time: 20 Billed Treatment Time 1, RUBEN, DYST FRANCOIS Thomas Jan 31, 2020 14:02
[2020-01-31] MEDS ORDERED: INSU100I34 SC (14:17)
[2020-01-31] MEDS ORDERED: METO-333 PO (14:17)
[2020-01-31] MEDS ORDERED: AMLO10TA7 PO (14:17)
[2020-01-31] MEDS ORDERED: METF-397 PO (14:17)
[2020-01-31] MEDS ORDERED: ONDA4TAB11 PO (14:17)
--- NOTE | 2020-01-31 14:22 | NUR ---
SPOKE WITH PT (SHE HAS HER HOME MEDS WITH HER), WENT THRU THE EXT MED HISTORY AND GOT A MED LIST FROM [facility] TO COMPLETE THE MED REC METOPROLOL TART 25MG WAS LAST FILLED ON 12-11-2019 #60/30DS- ACCORDING TO THE PT THERE MAY BE DAYS SHE DOESNT TAKE BOTH DOSES (SHE STILL HAS TABLETS IN HER PILL BOTTLE), I DID INCLUDE THE PAST DUE FILL ON THE MED REC OTC MEDS: NONE
[2020-01-31] MEDS ORDERED: MAGNESIUM 1 GM/100 ML IVPB 100 ML IV ONE (15:53)
[2020-01-31 16:00] VITALS: BP 145/85
[2020-01-31] MEDS ORDERED: ONDANSETRON 4 MG (ZOFRAN) ORAL DISSOLVE TAB PO PRN (16:45)
[2020-01-31 20:00] VITALS: BP 130/82
[2020-01-31] MEDS ORDERED: POTASSIUM CL 10MEQ/50ML IVPB 0 ML IV ONE (20:36)
[2020-01-31] MEDS: meTOprolol TARTRATE 25 MG (LOPRESSOR) TABLET PO SCH (20:41)
[2020-01-31] MEDS: SENNA W/DOCUSATE (SENOKOT S) TABLET PO SCH (20:41)
[2020-01-31] MEDS: inSUlin ASPART (NovoLOG) 1 UNIT/0.01 ML (CHARGE PER UNIT) SC SCH (20:43)
[2020-01-31 23:46] VITALS: BP 119/58
[2020-02-01] MEDS: NS IV 1000 ML 1,000 ML IV SCH ×3 (00:19→17:36)
[2020-02-01 04:00] VITALS: BP 139/72
[2020-02-01] MEDS: inSUlin ASPART (NovoLOG) 1 UNIT/0.01 ML (CHARGE PER UNIT) SC SCH ×4 (06:34→21:23)
[2020-02-01 06:48] LABS: BASOPHILS % (AUTO) 0 % (0-10); EOSINOPHILS # (AUTO) 0.1 10^3/uL (0.0-0.3); EOSINOPHILS % (AUTO) 2 % (0-10); HEMATOCRIT 33 % (35-52); HEMOGLOBIN 10.7 g/dL (11.5-16.0); LYMPHOCYTES # (AUTO) 1.6 10^3/uL (1.0-4.0); LYMPHOCYTES % (AUTO) 22 % (12-44); MEAN CORPUSCULAR HEMOGLOBIN 26 pg (25-34); MEAN CORPUSCULAR HGB CONC 32 g/dL (32-36); MEAN CORPUSCULAR VOLUME 81 fL (80-99); MEAN PLATELET VOLUME 9.1 fL (9.0-12.2); MONOCYTES # (AUTO) 0.8 10^3/uL (0.0-1.0); MONOCYTES % (AUTO) 11 % (0-12); NEUTROPHILS # (AUTO) 4.8 10^3/uL (1.8-7.8); NEUTROPHILS % (AUTO) 64 % (42-75); PLATELET COUNT 344 10^3/uL (130-400); WHITE BLOOD COUNT 7.4 10^3/uL (4.3-11.0)
[2020-02-01 06:52] LABS: ALBUMIN 3.2 GM/DL (3.2-4.5); CHLORIDE 98 MMOL/L (98-107); POTASSIUM 3.7 MMOL/L (3.6-5.0); SODIUM 134 MMOL/L (135-145)
[2020-02-01 06:54] LABS: GLUCOSE 150 MG/DL (70-105); TOTAL PROTEIN 6.2 GM/DL (6.4-8.2)
[2020-02-01 06:55] LABS: CARBON DIOXIDE 24 MMOL/L (21-32)
[2020-02-01 06:56] LABS: BILIRUBIN,TOTAL 0.7 MG/DL (0.1-1.0)
[2020-02-01 06:58] LABS: ALKALINE PHOSPHATASE 56 U/L (40-136); CREATININE SERUM 0.73 MG/DL (0.60-1.30); GFR ESTIMATED > 60
[2020-02-01 06:59] LABS: BUN/CREATININE RATIO 11
[2020-02-01 07:01] LABS: ALANINE AMINOTRANSFERASE 11 U/L (0-55)
[2020-02-01 08:00] VITALS: BP 162/75
[2020-02-01] MEDS: amLODIPine 10 MG (NORVASC) TAB PO SCH (08:31)
[2020-02-01] MEDS: PANTOPRAZOLE 40 MG (PROTONIX) VIAL IV SCH (08:31)
[2020-02-01] MEDS: meTOprolol TARTRATE 25 MG (LOPRESSOR) TABLET PO SCH ×2 (08:31→21:23)
[2020-02-01] MEDS: FLUCONAZOLE 200 MG/100 ML 50 ML, EMPTY IV BAG (PVC) 1 EA IV SCH ×2 (08:54)
[2020-02-01] MEDS: SENNA W/DOCUSATE (SENOKOT S) TABLET PO SCH ×2 (08:55→21:23)
--- NOTE | 2020-02-01 10:32 | NUR ---
clarified with Dr Luis--okay to cancel barium swallow study unless Dr. Ricci wants it.
--- NOTE | 2020-02-01 11:24 | NUR ---
DR CHOWDARY WANTS TO RESCHEDULE EGD FOR TOMORROW. NO NEED TO HOLD LOVENOX TODAY OR TOMORROW. NPO AT MIDNIGHT TONIGHT
[2020-02-01] MEDS: ENOXAPARIN 40 MG/0.4 ML (LOVENOX) SYR SC SCH (11:40)
[2020-02-01 12:00] VITALS: BP 158/74
--- NOTE | 2020-02-01 12:06 | Progress Note - Hospitalist ---
LETY GARCIA MED STUDENT 02/01/20 1206: Subjective HPI/CC On Admission Date Seen by Provider: Feb 01, 2020 Time Seen by Provider: 12:01 CC: Severe dysphagia with 40lb weight loss and severe hypokalemia and hypomagnesemia HPI: This is a 69yoWF clinic Pt of [facility] who I accepted upon transfer to higher level of care from [facility] due to hypokalemia and unable to eat or drink very much and spitting out her saliva when collected in her oral-pharynx because of severe dysphagia. She has a PMH of a diabetic ulcer on her foot, she was admitted to [facility] in November. Dr. Ricci managed that. She had been doing pretty well with that but began having some dysphagia since that time to the point of only having beef broth and only sustaining herself on that for the last one month. She has lost 40lbs. 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 Dr. Ricci will be consulted and we will replace potassium and magnesium through her IV and provide supportive care and IV fluids. She is so dehydrated they cant find an IV so a midline will be placed. Subjective/Events-last exam Patient reports feeling better today and wants to have a drink of water. patient did have some liquid this morning when she should have been NPO status so that will delay her EGD. She notes no changes in her dysphagia today. Review of Systems General: No Chills, No Night Sweats; Fatigue; No Appetite HEENT: No Head Aches; Dysphasia; No Sore Throat Pulmonary: No Dyspnea, No Cough Cardiovascular: No: Chest Pain, Lt Headedness Gastrointestinal: No: Nausea, Vomiting, Abdominal Pain, Diarrhea, Constipation Musculoskeletal: No: neck pain Neurological: No: Weakness, Numbness, Confusion Objective Exam Vital Signs Vital Signs Date Time Temp Pulse Resp B/P (MAP) Pulse Ox O2 Delivery O2 Flow Rate FiO2 02/01/20 08:00 98 Room Air 02/01/20 08:00 35.7 95 16 162/75 (104) 01/31/20 13:50 21 Capillary Refill : Less Than 3 Seconds General Appearance: No Apparent Distress, Thin HEENT: PERRL/EOMI, Normal ENT Inspection, Pharynx Normal Neck: Full Range of Motion, Normal Inspection, Non Tender Respiratory: Chest Non Tender, Lungs Clear, Normal Breath Sounds, No Accessory Muscle Use, No Respiratory Distress Cardiovascular: Regular Rate, Rhythm, No Edema, No Murmur, Normal Peripheral Pulses Gastrointestinal: Normal Bowel Sounds, No Organomegaly, No Pulsatile Mass, Non Tender, Soft Back: Normal Inspection, No CVA Tenderness Extremity: Normal Capillary Refill, Normal Range of Motion, Non Tender, No Calf Tenderness Neurologic/Psychiatric: Alert, Oriented x3, No Motor/Sensory Deficits, Normal Mood/Affect, 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 Assessment/Plan Assessment and Plan Assess & Plan/Chief Complaint Ms. Morgan is a 69 y/o F who was transferred for severe hypokalemia and dysphagia. Dysphagia - Solid foods only, 2 month duration, constant but not progressive, significant weight loss - EGD needed for evaluation - Will have EGD tomorrow as patient had liquids this morning when she needed to be NPO - Can have soft food diet now until midnight tonight when she will be NPO Severe hypokalemia - Likely related to patient's dehydrated and malnourished state from not eating solid foods the last 2 months - Will replace with IV potassium - Will also replace magnesium - 2.7 upon admission and now 3.7 Diabetes Mellitus - Continue insulin sliding scale while inpatient - With patient's weight loss and lack of appetite the hgba1c is probably lower than the 14 in November IVF for rehydration Will monitor electrolytes daily and replace as needed Dispo: Likely inpatient for the next couple days for dysphagia workup Clinical Quality Measures DVT/VTE Risk/Contraindication: Risk Factor Score Per Nursin RFS Level Per Nursing on Admit: 3=High SOHA LANDEROS DO 02/01/202125: Subjective Subjective/Events-last exam Pt is much improved Potassium 3.7 Right foot diabetic ulcer maintained with dressing changes EGD was originally planned for today but she ate and drank something so that cant be performed today Magnesium doing very well Review of Systems General: Fatigue Objective Exam General Appearance: No Apparent Distress, WD/WN Respiratory: Lungs Clear Cardiovascular: Regular Rate, Rhythm Assessment/Plan Assessment and Plan Assess & Plan/Chief Complaint EGD tomorrow rescheduled Supervisory-Addendum Brief Verification & Attestation Participated in pt care: history, MDM, physical Personally performed: exam, history, MDM, supervision of care Care discussed with: Medical Student Procedures: n/a Results interpretation: Verified all documentation Verification and Attestation of Medical Student E/M Service A medical student performed and documented this service in my presence. I reviewed and verified all information documented by the medical student and made modifications to such information, when appropriate. I personally performed the physical exam and medical decision making. Soha Landeros, Feb 01, 2020,21:25 LETY GARCIA MED STUDENT Feb 01, 2020 12:06 SOHA LANDEROS DO Feb 01, 2020 21:26
--- NOTE | 2020-02-01 14:15 | NUR ---
Pt has previously healing Diabetic foot wound with dressing. Dressing moist with blue-green tint to drainage. 1.0cm x 1.0cm x unobtainable cm area with yellow and white slough near heal. A second blackened scab area 0.8cm x 1.0cm x0.0cm near posterior heel. Full woundbed is 13.0cm x 4.7cm x 0.2cm. some pink granulation areas noted. Area cleansed and dried with guaze. one 4x4 fluffed guaze applied with kerlix to wrap and feli bandage to protect. pt denies pain throughout cleansing and dressing. This RN notified Dr. Ricci of drainage colors, awaiting orders.
--- NOTE | 2020-02-01 14:17 | NUR ---
"RD ASSESSMENT PMHx: DM PT INTERACTION: Pt was awake and pleasant during dietary consult for MST score. Pt states current appetite is improving, as it had been poor for some time. Note PO intake 25% x1meal, per chart review. Pt states following a low-CHO diet at home, and has some issues with chewing/swallowing food. Pt states no recent issues with nausea, vomiting, constipation, or diarrhea, and that her last BM was 01/31. Note pt currently on bowel regime of senna BID, per chart review. Pt states recent 35# wt loss x6w. Note recent 58# wt loss x2mon, per chart review. This is significant wt loss at 35% x2mon. Pt states current DM management is pretty good. Note recent HbA1c of 14.4 (12/03/2019), per chart review. Note presence of wound (diabetic R foot ulcer), per chart review. Upon visual assessment, pt appears to be undernourished with some visible signs of fat loss, and a BMI of 19.6 (Underweight BMI for age). Given visual assessment, PO intake, and wt hx, pt meets criteria for malnutrition, per ASPEN guidelines. ABNORMAL NUTRITION-RELATED LAB VALUES LOW: Na 134; Ca 8.0; Pro 6.2; HIGH: glu 150 Est. kcal needs: 1500 kcal | 30 kcal/kg Est. Pro needs: 70 g Pro | 1.4 g Pro/kg PES STATEMENT: Inadequate oral intake (NI-2.1) related to loss of appetite as evidenced by pt interview | PO intake 25% x1meal Inadequate protein intake (NI-5.6.1) related to increased protein needs as evidenced by presence of wound (R diabetic foot ulcer) Acute disease or injury related malnutrition (undernutrition) (NC-4.1.3) related to diminished PO intake as evidenced by pt interview | 35% wt loss x2mon | estimated energy intake <75% of estimated energy requirement for >7d INTERVENTION: Continue with current diet order of DYS1 Pureed diet. Would recommend switching current supplementation order of Ensure Clear with meals TID, to Glucerna (vary) with meals TID, for increased kcal intake and better glycemic control. Glucerna provides 220 kcal and 10 g Pro per serving. Offered diet education on DM management, but pt declined at this time. Will attempt to offer again prior to discharge. Will continue to follow and reassess as pt needs, intake, and status change. Leslie Hamilton, MS RD LD"
--- NOTE | 2020-02-01 15:00 | Conscious Sedation/ASA ---
Conscious Sedation Pre-Proced Time 14:55 ASA Score 2 For ASA 3 and 4: Consider anesthesia and medical clearance. Also, for patients with a history of failed moderate sedation consider anesthesia. Airway Lungs Heart ASA score ASA 1: a normal healthy patient ASA 2: a patient with a mild systemic disease (mid diabetes, controlled hypertension, obesity ASA 3: a patient with a severe systemic disease that limits activity (angina, COPD, prior Myocardial infarction) ASA 4: a patient with an incapacitating disease that is a constant threat to life (CHF, renal failure) ASA 5: a moribund patient not expected to survive 24 hrs. (ruptured aneurysm) ASA 6: a declared brain- patient whose organs are being harvested. For emergent operations, add the letter E after the classification Mallampati Classification Grade 2 Sedation Plan Analgesia, Amnesia, Plan communicated to team members, Discussed options with patient/fam, Discussed risks with patient/fam The patient is an appropriate candidate to undergo the planned procedure, sedation, and anesthesia. The patient immediately re-assessed prior to indication. LAURY CHOWDARY MD Feb 01, 2020 15:00
--- NOTE | 2020-02-01 15:01 | Progress Note-Pre Operative ---
Pre-Operative Progress Note H&P Reviewed The H&P was reviewed, patient examined and no changes noted. Date Seen by Provider: Feb 01, 2020 Time Seen by Provider: 15:00 Date H&P Reviewed: Feb 01, 2020 Time H&P Reviewed: 15:00 Pre-Operative Diagnosis: dysphagia, weight loss LAURY CHOWDARY MD Feb 01, 2020 15:01
[2020-02-01 15:59] VITALS: BP 110/68
[2020-02-01 19:05] VITALS: BP 144/81
[2020-02-02] VITALS (14 sets, daily range): BP systolic 93–175; BP diastolic 50–87
[2020-02-02] MEDS: NS IV 1000 ML 1,000 ML IV SCH (01:36)
[2020-02-02 06:08] LABS: BASOPHILS % (AUTO) 0 % (0-10); EOSINOPHILS # (AUTO) 0.1 10^3/uL (0.0-0.3); EOSINOPHILS % (AUTO) 2 % (0-10); HEMATOCRIT 31 % (35-52); LYMPHOCYTES # (AUTO) 1.1 10^3/uL (1.0-4.0); LYMPHOCYTES % (AUTO) 16 % (12-44); MEAN CORPUSCULAR HEMOGLOBIN 26 pg (25-34); MEAN CORPUSCULAR HGB CONC 32 g/dL (32-36); MEAN CORPUSCULAR VOLUME 81 fL (80-99); MEAN PLATELET VOLUME 8.9 fL (9.0-12.2); MONOCYTES # (AUTO) 0.7 10^3/uL (0.0-1.0); MONOCYTES % (AUTO) 9 % (0-12); NEUTROPHILS # (AUTO) 5.3 10^3/uL (1.8-7.8); NEUTROPHILS % (AUTO) 73 % (42-75); PLATELET COUNT 321 10^3/uL (130-400); WHITE BLOOD COUNT 7.3 10^3/uL (4.3-11.0)
[2020-02-02 06:14] LABS: ALBUMIN 3.1 GM/DL (3.2-4.5)
[2020-02-02 06:15] LABS: CALCIUM 7.8 MG/DL (8.5-10.1)
[2020-02-02 06:17] LABS: GLUCOSE 132 MG/DL (70-105); TOTAL PROTEIN 5.9 GM/DL (6.4-8.2)
[2020-02-02 06:18] LABS: BILIRUBIN,TOTAL 0.6 MG/DL (0.1-1.0); CARBON DIOXIDE 26 MMOL/L (21-32)
[2020-02-02 06:20] LABS: ALKALINE PHOSPHATASE 54 U/L (40-136); GFR ESTIMATED > 60
[2020-02-02 06:21] LABS: BUN/CREATININE RATIO 7
[2020-02-02] MEDS: inSUlin ASPART (NovoLOG) 1 UNIT/0.01 ML (CHARGE PER UNIT) SC SCH ×4 (06:22→20:53)
[2020-02-02 06:23] LABS: ALANINE AMINOTRANSFERASE 8 U/L (0-55); MAGNESIUM 1.2 MG/DL (1.6-2.4)
[2020-02-02 07:04] LABS: CHLORIDE 102 MMOL/L (98-107); POTASSIUM 2.7 MMOL/L (3.6-5.0); SODIUM 140 MMOL/L (135-145)
[2020-02-02] MEDS: meTOprolol TARTRATE 25 MG (LOPRESSOR) TABLET PO SCH ×2 (08:40→20:13)
[2020-02-02] MEDS: amLODIPine 10 MG (NORVASC) TAB PO SCH (08:40)
[2020-02-02] MEDS: SENNA W/DOCUSATE (SENOKOT S) TABLET PO SCH ×2 (08:41→20:13)
[2020-02-02] MEDS: FLUCONAZOLE 200 MG/100 ML 50 ML, EMPTY IV BAG (PVC) 1 EA IV SCH ×2 (08:46)
[2020-02-02] MEDS: PANTOPRAZOLE 40 MG (PROTONIX) VIAL IV SCH (08:46)
--- NOTE | 2020-02-02 10:40 | NUR ---
TO ENDO PER WC.
[2020-02-02] MEDS ORDERED: fentaNYL INJECTION 100 MCG/2 ML AMP ONE (10:46)
[2020-02-02] MEDS ORDERED: LIDOCAINE JELLY 2% 6 ML SYRINGE ONE (10:46)
[2020-02-02] MEDS ORDERED: MIDAZOLAM 5 MG/5 ML (VERSED) VIAL ONE (10:47)
[2020-02-02] MEDS ORDERED: NS IV 500 ML 500 ML ONE (10:47)
[2020-02-02] MEDS ORDERED: HURRICAINE EXT TUBE (BENZOCAINE) ONE (10:47)
[2020-02-02] MEDS ORDERED: NS IV 500 ML 500 ML IV PRN (11:01)
[2020-02-02] MEDS ORDERED: NS IV 500 ML 500 ML IV ONE (11:15)
[2020-02-02] MEDS ORDERED: LIDOCAINE JELLY 2% 6 ML SYRINGE MM PRN (11:15)
[2020-02-02] MEDS ORDERED: fentaNYL INJECTION 100 MCG/2 ML AMP IVP ONE (11:15)
[2020-02-02] MEDS ORDERED: HURRICAINE EXT TUBE (BENZOCAINE) XX PRN (11:15)
[2020-02-02] MEDS ORDERED: MIDAZOLAM 5 MG/5 ML (VERSED) VIAL IV ONE (11:15)
--- NOTE | 2020-02-02 11:27 | Progress Note-Post Operative ---
Post-Operative Progess Note Surgeon (s)/Coach (s) Surgeon LAURY CHOWDARY MD Coach: none Pre-Operative Diagnosis dysphagia, weight loss Post-Operative Diagnosis reflux esophagitis(stage 2-3), moderate distal esophageal stricture, no HH, moderate gastritis and duodenitis. Procedure & Operative Findings Date of Procedure 02/02/20 Procedure Performed/Findings EGD with bx and balloon dilatation. Anesthesia Type cs Estimated Blood Loss Estimated blood loss (mL): minimal Specimens/Packing Specimens Removed ge jxn, antrum, duodenum LAURY CHOWDARY MD Feb 02, 2020 11:27
--- NOTE | 2020-02-02 11:35 | NUR ---
RET'D FROM EGD. LETHARGIC. IVF DISCONTINUED PER ORDER. DIET ADVANCED TO DYS 3.
[2020-02-02] MEDS: MAGNESIUM 1 GM/100 ML IVPB 100 ML IV SCH ×2 (12:15→13:24)
[2020-02-02] MEDS: POTASSIUM CL 10MEQ/50ML IVPB 50 ML IV SCH ×8 (12:15→19:56)
[2020-02-02] MEDS: ENOXAPARIN 40 MG/0.4 ML (LOVENOX) SYR SC SCH (12:16)
--- NOTE | 2020-02-02 15:40 | NUR ---
Pt has Scientologist preference. visited and prayed w/ pt.
--- NOTE | 2020-02-02 16:12 | Progress Note - Hospitalist ---
MULU AIKEN MED STUDENT 02/02/20 1612: Subjective HPI/CC On Admission Date Seen by Provider: Feb 02, 2020 Time Seen by Provider: 09:50 CC: Severe dysphagia with 40lb weight loss and severe hypokalemia and hypomagnesemia HPI: This is a 69yoWF clinic Pt of [facility] who I accepted upon transfer to higher level of care from [facility] due to hypokalemia and unable to eat or drink very much and spitting out her saliva when collected in her oral-pharynx because of severe dysphagia. She has a PMH of a diabetic ulcer on her foot, she was admitted to [facility] in November. Dr. Ricci managed that. She had been doing pretty well with that but began having some dysphagia since that time to the point of only having beef broth and only sustaining herself on that for the last one month. She has lost 40lbs. 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 Dr. Ricci will be consulted and we will replace potassium and magnesium through her IV and provide supportive care and IV fluids. She is so dehydrated they cant find an IV so a midline will be placed. Subjective/Events-last exam Pt denies any new problems. Spitting up her saliva because of difficulty swallowing. Today potassium is 2.7 and magnesium is 1.2. Has been NPO because she has EGD planned this morning with Dr. Ricci. Objective Exam Vital Signs Vital Signs Date Time Temp Pulse Resp B/P (MAP) Pulse Ox O2 Delivery O2 Flow Rate FiO2 02/02/20 13:00 75 02/02/20 12:00 35.8 20 112/67 (82) 92 Room Air 02/02/20 11:15 2 01/31/20 13:50 21 Capillary Refill : Less Than 3 SecondsLess Than 3 Seconds General Appearance: Thin, Other (spitting up saliva into tissue) HEENT: PERRL/EOMI, Normal ENT Inspection Neck: Normal Inspection Respiratory: Lungs Clear, No Accessory Muscle Use, No Respiratory Distress Cardiovascular: Regular Rate, Rhythm, No Edema, No Murmur Gastrointestinal: Non Tender, Soft Back: Normal Inspection Extremity: Normal Inspection, No Pedal Edema Neurologic/Psychiatric: Alert, No Motor/Sensory Deficits, Normal Mood/Affect Skin: Normal Color, Warm/Dry Lymphatic: No Adenopathy Results/Procedures Lab Laboratory Tests 02/02/20 05:17 Patient resulted labs reviewed. Assessment/Plan Assessment and Plan Assess & Plan/Chief Complaint Assessment: dysphagia hypomagnesemia hypokalemia DM Plan: NPO; advance diet after EGD IV fluids Replete potassium and magnesium Lovenox for DVT prophylaxis Sliding scale insulin for DM Monitor labs Clinical Quality Measures DVT/VTE Risk/Contraindication: Risk Factor Score Per Nursin RFS Level Per Nursing on Admit: 3=High SOHA LANDEROS DO 02/02/20 2134: Subjective Subjective/Events-last exam Pt doing pretty well EGD performed, results pending Hypokalemia and Hypomag supplemented through IV Review of Systems General: Fatigue HEENT: Dysphasia Objective Exam General Appearance: No Apparent Distress, WD/WN, Thin Respiratory: Lungs Clear Cardiovascular: Regular Rate, Rhythm Assessment/Plan Assessment and Plan Assess & Plan/Chief Complaint IV potassium and Mag Supervisory-Addendum Brief Verification & Attestation Participated in pt care: history, MDM, physical Personally performed: exam, history, MDM, supervision of care Care discussed with: Medical Student Procedures: n/a Results interpretation: Verified all documentation Verification and Attestation of Medical Student E/M Service A medical student performed and documented this service in my presence. I reviewed and verified all information documented by the medical student and made modifications to such information, when appropriate. I personally performed the physical exam and medical decision making. Soha Landeros, Feb 02, 2020,21:33 MULU AIKEN MED STUDENT Feb 02, 2020 16:12 SOHA LANDEROS DO Feb 02, 2020 21:34
--- NOTE | 2020-02-02 18:49 | OPERATIVE REPORT ---
DATE OF SERVICE: 02/02/2020 ATTENDING PRIMARY CARE PHYSICIAN: Soha Luis DO. PREOPERATIVE DIAGNOSES: Dysphagia, weight loss, new onset diabetes. POSTOPERATIVE DIAGNOSES: Reflux esophagitis, stage II with a distal esophageal stricture, no hiatal hernia, moderate gastritis and duodenitis. PROCEDURE PERFORMED: Esophagogastroduodenoscopy with biopsy and balloon dilatation. SURGEON: Laury Chowdary MD. ANESTHESIA: Conscious sedation. ESTIMATED BLOOD LOSS: Minimal. FINDINGS: Reflux esophagitis, stage II with a distal esophageal stricture, no hiatal hernia, moderate gastritis and duodenitis. DISPOSITION: The patient tolerated the procedure well. INDICATIONS: The patient is a 69-year-old female who was transferred from [place], [place] for diabetic ketoacidosis. Before this, she did not know she had diabetes. She was treated appropriately and during that admission, she also developed a significant necrotic diabetic wound of the right foot and underwent a wide debridement of this area. Since that time, she has been on antibiotics for quite some time; however, upon examination of the foot, the foot is healing well with good granulation bed and epithelialization. She has developed a new issue with significant dysphagia that she states has been occurring for the past month and has difficulty swallowing and will also regurgitate. She says that this is a new issue. She does report that she has had some issues with gastroesophageal reflux disease in the past. She also states that she has lost approximately 25-30 pounds due to this issue with dysphagia. DESCRIPTION OF PROCEDURE: The patient was brought to the endoscopy suite, laid in the left lateral decubitus position. After adequate IV pain and stated medications and conscious sedation anesthesia, the mouthpiece was applied. The endoscope was placed in the mouth, visualizing the pharynx and hypopharyngeal region. Vocal cords, epiglottis and vallecula identified and appeared to be normal. The endoscope then gently intubated esophageal opening and esophagus insufflated. The endoscope was then advanced through the first, second and third portion of the esophagus at the level of the GE junction, a reflux esophagitis between stage II and III identified with a distal esophageal stricture also identified. A biopsy was taken using forceps with visualization of good hemostasis. The endoscope was then advanced in the stomach and endoscope retroflexed, visualizing the stricture and no hiatal hernia identified. There was a moderate severity gastritis as well as duodenitis and biopsies taken of the antrum and duodenum with visualization of good hemostasis. We then proceeded with balloon dilatation of the distal esophageal stricture. The balloon was placed in the stomach and pulled back to the area of the stricture. The balloon was then insufflated to 2 and then 4 atmospheres of pressure with mild to moderate resistance. We then slowly over time we were able to get to 6 atmospheres of pressure over or 20 mm in luminal diameter with moderate resistance and left this in place for 60 seconds. The balloon was then desufflated and removed with visualization of good hemostasis as well as no mucosal tears. Endoscope was then slowly withdrawn while taking a second look and suctioning of residual air with no additional findings. The patient tolerated the procedure well. We will recommend the necessary lifestyle and diet accommodation including small and more frequent meals, avoiding eating at night as well as head elevation while lying supine. 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 If she does have recurrent dysphagia, we will proceed with repeat dilatation. Job ID: [id number] DocumentID: [id number] Dictated Date: 02/02/2020 11:15:17 Engineering Officer Date: 02/02/2020 18:47:56 Dictated By: LAURY CHOWDARY MD
--- NOTE | 2020-02-02 21:16 | NUR ---
NOTIFIED BY MARI, HR GENERALIST, TO DC TELEMETRY PER DR. LANDEROS'S ORDER. TELEMETRY REMOVED AND RETURNED TO ICU AT THIS TIME.
[2020-02-03 00:07] VITALS: BP 119/60
[2020-02-03 03:50] VITALS: BP 147/75
[2020-02-03 04:35] LABS: ALBUMIN 2.9 GM/DL (3.2-4.5); CHLORIDE 101 MMOL/L (98-107); POTASSIUM 3.6 MMOL/L (3.6-5.0); SODIUM 137 MMOL/L (135-145)
[2020-02-03 04:36] LABS: CALCIUM 7.8 MG/DL (8.5-10.1)
[2020-02-03 04:38] LABS: GLUCOSE 138 MG/DL (70-105); TOTAL PROTEIN 5.9 GM/DL (6.4-8.2)
[2020-02-03 04:39] LABS: BASOPHILS % (AUTO) 0 % (0-10); CARBON DIOXIDE 25 MMOL/L (21-32); EOSINOPHILS # (AUTO) 0.2 10^3/uL (0.0-0.3); EOSINOPHILS % (AUTO) 3 % (0-10); HEMATOCRIT 30 % (35-52); HEMOGLOBIN 9.6 g/dL (11.5-16.0); LYMPHOCYTES # (AUTO) 1.3 10^3/uL (1.0-4.0); LYMPHOCYTES % (AUTO) 17 % (12-44); MEAN CORPUSCULAR HEMOGLOBIN 26 pg (25-34); MEAN CORPUSCULAR HGB CONC 32 g/dL (32-36); MEAN CORPUSCULAR VOLUME 81 fL (80-99); MONOCYTES # (AUTO) 0.8 10^3/uL (0.0-1.0); MONOCYTES % (AUTO) 10 % (0-12); NEUTROPHILS # (AUTO) 5.5 10^3/uL (1.8-7.8); NEUTROPHILS % (AUTO) 70 % (42-75); PLATELET COUNT 291 10^3/uL (130-400); WHITE BLOOD COUNT 7.9 10^3/uL (4.3-11.0)
[2020-02-03 04:40] LABS: BILIRUBIN,TOTAL 0.5 MG/DL (0.1-1.0)
[2020-02-03 04:41] LABS: ALKALINE PHOSPHATASE 55 U/L (40-136); CREATININE SERUM 0.74 MG/DL (0.60-1.30); GFR ESTIMATED > 60
[2020-02-03 04:42] LABS: BUN/CREATININE RATIO 5
[2020-02-03 04:44] LABS: ALANINE AMINOTRANSFERASE 9 U/L (0-55); MAGNESIUM 1.7 MG/DL (1.6-2.4)
[2020-02-03] MEDS: inSUlin ASPART (NovoLOG) 1 UNIT/0.01 ML (CHARGE PER UNIT) SC SCH ×2 (06:38→10:43)
[2020-02-03 08:00] VITALS: BP 142/75
[2020-02-03] MEDS: meTOprolol TARTRATE 25 MG (LOPRESSOR) TABLET PO SCH (08:00)
[2020-02-03] MEDS: SENNA W/DOCUSATE (SENOKOT S) TABLET PO SCH (08:00)
[2020-02-03] MEDS: amLODIPine 10 MG (NORVASC) TAB PO SCH (08:00)
[2020-02-03] MEDS: PANTOPRAZOLE 40 MG (PROTONIX) VIAL IV SCH (08:00)
[2020-02-03] MEDS: ENOXAPARIN 40 MG/0.4 ML (LOVENOX) SYR SC SCH (10:33)
[2020-02-03] MEDS ORDERED: PANT40SU PO (11:30)
--- NOTE | 2020-02-03 11:39 | Discharge Summary ---
Diagnosis/Chief Complaint Date of Admission Jan 31, 2020 at 10:48 Date of Discharge February 02 at 1300 Discharge Date: Feb 03, 2020 Discharge Time: 14:00 Admission Diagnosis Assessment: Severe dysphagia Hypokalemia severe and refractory Hypomagnesemia Weight loss DM foot ulcer DM Plan: IVF Potassium Magnesium Primary Care No,Local Physician Discharge Diagnosis dysphagia secondary to esophageal stricture Type II diabetes on insulin Diabetic foot ulcer Hypokalemia Hypomagnesemia (1) Dysphagia Status: Resolved (2) Weight loss Status: Acute (3) Hypokalemia Status: Resolved (4) JANNIE (acute kidney injury) Status: Acute (5) T2DM (type 2 diabetes mellitus) Status: Chronic Discharge Summary Procedures/Consulations general surgery EGD with esophageal dilation Discharge Physical Exam Allergies: Coded Allergies: No Known Drug Allergies (Unverified , 12/03/19) Vitals & I&Os Vital Signs Date Time Temp Pulse Resp B/P (MAP) Pulse Ox O2 Delivery O2 Flow Rate FiO2 02/03/20 08:19 Room Air 02/03/20 08:00 35.9 100 20 142/75 (97) 100 02/02/20 11:15 2 01/31/20 13:50 21 General Appearance: No Apparent Distress, WD/WN HEENT: Normal ENT Inspection Respiratory: Normal Breath Sounds, No Accessory Muscle Use, No Respiratory Distress Cardiovascular: Regular Rate, Rhythm, No Gallop, No Murmur Gastrointestinal: Normal Bowel Sounds, Non Tender, Soft Skin: Normal Color, Warm/Dry Neurologic/Psychiatric: Alert, Oriented x3, No Motor/Sensory Deficits, Normal Mood/Affect Hospital Course patient was admitted with dysphagia. Dr. Ricci saw the patient consultation performed an EGD with esophageal dilation without complication. The patient is eating at the time of discharge without any discomfort and feeling much better. She'll be discharged on Protonix. She'll be re-started on her metformin with i nsulin at meals. She's to follow-up with Dr. Ricci. Labs (last 24 hrs) Laboratory Tests 02/02/20 11:37: Glucometer 151H 02/02/20 15:30: Glucometer 240H 02/02/20 20:28: Glucometer 135H 02/03/20 04:15: White Blood Count 7.9, Red Blood Count 3.66L, Hemoglobin 9.6L, Hematocrit 30L, Mean Corpuscular Volume 81, Mean Corpuscular Hemoglobin 26, Mean Corpuscular Hemoglobin Concent 32, Red Cell Distribution Width 15.3H, Platelet Count 291, Mean Platelet Volume 9.0, Immature Granulocyte % (Auto) 1, Neutrophils (%) (Auto) 70, Lymphocytes (%) (Auto) 17, Monocytes (%) (Auto) 10, Eosinophils (%) (Auto) 3, Basophils (%) (Auto) 0, Neutrophils # (Auto) 5.5, Lymphocytes # (Auto) 1.3, Monocytes # (Auto) 0.8, Eosinophils # (Auto) 0.2, Basophils # (Auto) 0.0, Immature Granulocyte # (Auto) 0.1, Sodium Level 137, Potassium Level 3.6, Chloride Level 101, Carbon Dioxide Level 25, Anion Gap 11, Blood Urea Nitrogen 4L, Creatinine 0.74, Estimat Glomerular Filtration Rate > 60, BUN/Creatinine Ratio 5, Glucose Level 138H, Calcium Level 7.8L, Corrected Calcium 8.7, Magnesium Level 1.7, Total Bilirubin 0.5, Aspartate Amino Transf (AST/SGOT) 15, Alanine Aminotransferase (ALT/SGPT) 9, Alkaline Phosphatase 55, Total Protein 5.9L, Albumin 2.9L 02/03/20 05:34: Glucometer 144H 02/03/20 10:36: Glucometer 211H Microbiology 01/31/20 MRSA Screen - Final, Complete MRSA not isolated Patient resulted labs reviewed. Pending Labs Laboratory Tests 02/03/20 04:15: White Blood Count 7.9, Red Blood Count 3.66, Hemoglobin 9.6, Hematocrit 30, Mean Corpuscular Volume 81, Mean Corpuscular Hemoglobin 26, Mean Corpuscular Hemoglobin Concent 32, Red Cell Distribution Width 15.3, Platelet Count 291, Mean Platelet Volume 9.0, Immature Granulocyte % (Auto) 1, Neutrophils (%) (Auto ) 70, Lymphocytes (%) (Auto) 17, Monocytes (%) (Auto) 10, Eosinophils (%) (Auto) 3, Basophils (%) (Auto) 0, Neutrophils # (Auto) 5.5, Lymphocytes # (Auto) 1.3, Monocytes # (Auto) 0.8, Eosinophils # (Auto) 0.2, Basophils # (Auto) 0.0, Immature Granulocyte # (Auto) 0.1, Sodium Level 137, Potassium Level 3.6, Chloride Level 101, Carbon Dioxide Level 25, Anion Gap 11, Blood Urea Nitrogen 4, Creatinine 0.74, Estimat Glomerular Filtration Rate > 60, BUN/Creatinine Ratio 5, Glucose Level 138, Calcium Level 7.8, Corrected Calcium 8.7, Magnesium Level 1.7, Total Bilirubin 0.5, Aspartate Amino Transf (AST/SGOT) 15, Alanine Aminotransferase (ALT/SGPT) 9, Alkaline Phosphatase 55, Total Protein 5.9, Albumin 2.9 02/03/20 05:34: Glucometer 144 02/03/20 10:36: Glucometer 211 Imaging: Reviewed Imaging Report Discussion & Recommendations Discharge Planning: <30 minutes discharge planning Discharge Home Medications: Active Scripts Active Protonix (Pantoprazole Sodium) 40 Mg Granpkt.dr 40 Mg PO DAILY 30 Days Reported Metoprolol Tartrate 25 Mg Tablet 25 Mg PO BID LAST FILLED 12-11-2019 #60/30 DAY SUPPLY Basaglar Kwikpen U-100 (Insulin Glargine,Hum.rec.anlog) 100 Unit/1 Ml Insuln.pen 5 Units SC HS Amlodipine Besylate 10 Mg Tablet 10 Mg PO DAILY Metformin HCl 500 Mg Tablet 500 Mg PO DAILY Ondansetron Odt (Ondansetron) 4 Mg Tab.rapdis 4 Mg PO Q6H PRN Instructions to patient/family Please see electronic discharge instructions given to patient. Clinical Quality Measures DVT/VTE Risk/Contraindication: Risk Factor Score Per Nursin RFS Level Per Nursing on Admit: 3=High REID CARRANZA MD Feb 03, 2020 11:39
== END 2020-02-03 13:10 | disposition home or self-care (01) | DRG 392 ==
LOC: 4TH 10:48
PROVIDERS: ADMIT Internal Medicine; ATTEND Internal Medicine
PROC: 0DB48ZX Excision of Esophagogastric Junction, Via Natural or Artificial Opening Endoscopic, Diagnostic (ICD-10-PCS; 2020-02-02)
PROC: 0DB78ZX Excision of Stomach, Pylorus, Via Natural or Artificial Opening Endoscopic, Diagnostic (ICD-10-PCS; 2020-02-02)
PROC: 0DB98ZX Excision of Duodenum, Via Natural or Artificial Opening Endoscopic, Diagnostic (ICD-10-PCS; 2020-02-02)
PROC: 0D738ZZ Dilation of Lower Esophagus, Via Natural or Artificial Opening Endoscopic (ICD-10-PCS; principal; 2020-02-02 10:45)
DX: K22.2 Esophageal obstruction (principal); E46 Unspecified protein-calorie malnutrition; N17.9 Acute kidney failure, unspecified; K21.00 Gastro-esophageal reflux disease with esophagitis, without bleeding; K29.70 Gastritis, unspecified, without bleeding; K29.80 Duodenitis without bleeding; R13.10 Dysphagia, unspecified; E86.0 Dehydration; E87.6 Hypokalemia; Z20.828 Contact with and (suspected) exposure to other viral communicable diseases; R63.4 Abnormal weight loss; E11.621 Type 2 diabetes mellitus with foot ulcer; E83.42 Hypomagnesemia; R53.83 Other fatigue; J30.2 Other seasonal allergic rhinitis; Z79.4 Long term (current) use of insulin; Z80.8 Family history of malignant neoplasm of other organs or systems; Z60.2 Problems related to living alone
CPT/HCPCS: 36415; 76937; 80053; 82962; 83735; 85025; 87081; 87635; 94760

== ENCOUNTER 2020-03-12 17:40 | Day surgery (SDC) | payer MEDICARE, OTHER ==
[~2020-03-12] VITALS: Ht 157.4 cm; Wt 45.2 kg
[~2020-03-12 17:40] MED LIST changes: +AMLO-251 PO; -AMLO10TA7 PO; +INSU100I34 SC; +ONDA4TAB11 PO; +PANT40SU PO
[2020-03-12] MEDS ORDERED: ONDANSETRON 4 MG/2 ML (SDV) Z0FRAN IVP ONE (17:45)
[2020-03-12] MEDS ORDERED: NS IV 1000 ML 1,000 ML IV SCH (17:45)
[2020-03-12] MEDS ORDERED: HOLD METFORMIN - RECEIVED CONTRAST 20 ML VIAL IV SCH (18:15)
[2020-03-12] MEDS ORDERED: IOHEXOL 350 MG/ML 100 ML (OMNIPAQUE 350) VIAL IV ONE (18:15)
[2020-03-12] MEDS ORDERED: NS 100 ML (IVPB) BAG IV ONE (18:15)
[2020-03-12 18:19] LABS: BASOPHILS % (AUTO) 0 % (0-10); EOSINOPHILS % (AUTO) 0 % (0-10); HEMATOCRIT 41 % (35-52); HEMOGLOBIN 12.9 g/dL (11.5-16.0); LYMPHOCYTES # (AUTO) 1.4 10^3/uL (1.0-4.0); LYMPHOCYTES % (AUTO) 11 % (12-44); MEAN CORPUSCULAR HEMOGLOBIN 27 pg (25-34); MEAN CORPUSCULAR HGB CONC 31 g/dL (32-36); MEAN CORPUSCULAR VOLUME 86 fL (80-99); MEAN PLATELET VOLUME 9.1 fL (9.0-12.2); MONOCYTES # (AUTO) 1.1 10^3/uL (0.0-1.0); MONOCYTES % (AUTO) 8 % (0-12); NEUTROPHILS # (AUTO) 10.6 10^3/uL (1.8-7.8); NEUTROPHILS % (AUTO) 80 % (42-75); PLATELET COUNT 396 10^3/uL (130-400); WHITE BLOOD COUNT 13.2 10^3/uL (4.3-11.0)
[2020-03-12 18:31] LABS: POTASSIUM 3.5 MMOL/L (3.6-5.0)
[2020-03-12 18:33] LABS: CALCIUM 8.2 MG/DL (8.5-10.1)
[2020-03-12 18:34] LABS: TOTAL PROTEIN 6.1 GM/DL (6.4-8.2)
[2020-03-12 18:35] LABS: BILIRUBIN,TOTAL 0.9 MG/DL (0.1-1.0)
[2020-03-12 18:37] LABS: CREATININE SERUM 1.14 MG/DL (0.60-1.30)
--- NOTE | 2020-03-12 18:44 | ED GI ---
General Chief Complaint: Abdominal/GI Problems Stated Complaint: WEAKNESS Nursing Triage Note: Pt to ED via EMS. EMS reports being called for weakness. EMS reports pt was given fluids and 4mg zofran enroute. Pt reported feeling better. Pt then became nauseated at time of assessment. Pt reports having periodic vomiting for several months. Sepsis Screen: No Definite Risk Source of Information: Patient Exam Limitations: No Limitations History of Present Illness Date Seen by Provider: Mar 12, 2020 Time Seen by Provider: 18:10 Initial Comments To ER by EMS from home in [place] with reports of nausea vomiting. She has been having intermittent vomiting for several months, states her primary care provider does not know why. EMS gave fluids and Zofran in route which temporarily helped her feel better but she vomited once again upon arrival here. She states that she went from 140 pounds down to 105 pounds over the course of the last 2 months. Timing/Duration: Getting Worse, Intermittent Severity/Quality: Moderate Location: Generalized Abdomen Radiation: No Radiation Activities at Onset: None Allergies and Home Medications Allergies Coded Allergies: No Known Drug Allergies (Unverified , 12/03/19) Home Medications Amlodipine Besylate 10 Mg Tablet, 10 MG PO DAILY, (Reported) Insulin Glargine,Hum.rec.anlog 100 Unit/1 Ml Insuln.pen, 5 UNITS SC HS, (Reported) Metformin HCl 500 Mg Tablet, 500 MG PO DAILY, (Reported) Metoprolol Tartrate 25 Mg Tablet, 25 MG PO BID, (Reported) LAST FILLED 12-11-2019 #60/30 DAY SUPPLY Ondansetron 4 Mg Tab.rapdis, 4 MG PO Q6H PRN for NAUSEA/VOMITING-1ST LINE, (Reported) Pantoprazole Sodium 40 Mg Granpkt.dr, 40 MG PO DAILY Prescribed by: REID CARRANZA on 02/03/20 1130 Patient Home Medication List Home Medication List Reviewed: Yes Review of Systems Review of Systems Constitutional: see HPI EENTM: No Symptoms Reported Respiratory: No Symptoms Reported Cardiovascular: No Symptoms Reported Gastrointestinal: See HPI Genitourinary: No Symptoms Reported Musculoskeletal: no symptoms reported Skin: no symptoms reported Psychiatric/Neurological: No Symptoms Reported Endocrine: No Symptoms Reported Past Lsacjni-Hxbwkz-Ykshhz Hx Patient Social History Alcohol Use: Denies Use Recreational Drug Use: No 2nd Hand Smoke Exposure: No Recent Foreign Travel: No Contact w/Someone Who Travel: No Recent Infectious Disease Expo: No Seasonal Allergies Seasonal Allergies: Yes Past Medical History Surgeries: No Respiratory: No Currently Using CPAP: No Currently Using BIPAP: No Cardiac: No Neurological: No Genitourinary: No Gastrointestinal: No Musculoskeletal: No Endocrine: No Diabetes, Insulin dep HEENT: No Cancer: No Psychosocial: No Integumentary: No Blood Disorders: No Family Medical History Heart Disease, Cancer, Diabetes Physical Exam Vital Signs Vital Signs - First Documented 03/12/20 17:40 Temp 35.2 Pulse 107 Resp 22 B/P (MAP) 100/57 (71) Pulse Ox 100 O2 Delivery Room Air Capillary Refill : Less Than 3 Seconds Height/Weight/BMI Height: '" Weight: lbs. oz. kg; 17.00 BMI Method: General Appearance: WD/WN, no apparent distress, thin, other (Cachectic appearing, covered in dried fecal matter.) HEENT: PERRL/EOMI, normal ENT inspection Respiratory: no respiratory distress, no accessory muscle use Cardiovascular: regular rate, rhythm, no murmur Gastrointestinal: normal bowel sounds, non tender, soft; No tenderness Extremities: normal range of motion, non-tender Neurologic/Psychiatric: alert, normal mood/affect, oriented x 3 Skin: normal color, warm/dry Progress/Results/Core Measures Results/Orders Lab Results Laboratory Tests Test 03/12/20 18:10 03/12/20 18:45 Range/Units White Blood Count 13.2 H 4.3-11.0 10^3/uL Red Blood Count 4.81 3.80-5.11 10^6/uL Hemoglobin 12.9 11.5-16.0 g/dL Hematocrit 41 35-52 % Mean Corpuscular Volume 86 80-99 fL Mean Corpuscular Hemoglobin 27 25-34 pg Mean Corpuscular Hemoglobin Concent 31 L 32-36 g/dL Red Cell Distribution Width 17.4 H 10.0-14.5 % Platelet Count 396 130-400 10^3/uL Mean Platelet Volume 9.1 9.0-12.2 fL Immature Granulocyte % (Auto) 1 % Neutrophils (%) (Auto) 80 H 42-75 % Lymphocytes (%) (Auto) 11 L 12-44 % Monocytes (%) (Auto) 8 0-12 % Eosinophils (%) (Auto) 0 0-10 % Basophils (%) (Auto) 0 0-10 % Neutrophils # (Auto) 10.6 H 1.8-7.8 10^3/uL Lymphocytes # (Auto) 1.4 1.0-4.0 10^3/uL Monocytes # (Auto) 1.1 H 0.0-1.0 10^3/uL Eosinophils # (Auto) 0.0 0.0-0.3 10^3/uL Basophils # (Auto) 0.0 0.0-0.1 10^3/uL Immature Granulocyte # (Auto) 0.1 0.0-0.1 10^3/uL Sodium Level 134 L 135-145 MMOL/L Potassium Level 3.5 L 3.6-5.0 MMOL/L Chloride Level 98 98-107 MMOL/L Carbon Dioxide Level 21 21-32 MMOL/L Anion Gap 15 H 5-14 MMOL/L Blood Urea Nitrogen 17 7-18 MG/DL Creatinine 1.14 0.60-1.30 MG/DL Estimat Glomerular Filtration Rate 48 BUN/Creatinine Ratio 15 Glucose Level 215 H 70-105 MG/DL Calcium Level 8.2 L 8.5-10.1 MG/DL Corrected Calcium 9.0 8.5-10.1 MG/DL Total Bilirubin 0.9 0.1-1.0 MG/DL Aspartate Amino Transf (AST/SGOT) 15 5-34 U/L Alanine Aminotransferase (ALT/SGPT) 9 0-55 U/L Alkaline Phosphatase 126 40-136 U/L Total Protein 6.1 L 6.4-8.2 GM/DL Albumin 3.0 L 3.2-4.5 GM/DL Lipase 10 8-78 U/L Urine Color YELLOW Urine Clarity CLEAR Urine pH 5.0 5-9 Urine Specific [place] >=1.030 1.016-1.022 Urine Protein 1+ H NEGATIVE Urine Glucose (UA) NEGATIVE NEGATIVE Urine Ketones NEGATIVE NEGATIVE Urine Nitrite NEGATIVE NEGATIVE Urine Bilirubin 2+ H NEGATIVE Urine Urobilinogen 1.0 < = 1.0 MG/DL Urine Leukocyte Esterase NEGATIVE NEGATIVE Urine RBC (Auto) NEGATIVE NEGATIVE Urine RBC 0-2 /HPF Urine WBC 0-2 /HPF Urine Crystals PRESENT H /LPF Urine Amorphous Sediment MOD LIZETTE URATES H /LPF Urine Bacteria TRACE /HPF Urine Casts NONE /LPF Urine Mucus SMALL H /LPF Urine Culture Indicated NO My Orders Orders - ERIC COLLIER APRN Ct Abdomen/Pelvis Wo (03/12/20 18:52) Na Phos/Na Biphos Enema (Fleet Enema Jerrell (03/12/20 19:45) Promethazine Injection (Phenergan Injec (03/12/20 20:15) Medications Given in ED Current Medications Medications Dose Ordered Sig/Olya Route Start Time Stop Time Status Last Admin Dose Admin Ondansetron HCl 4 mg ONCE ONCE IVP 03/12/20 17:45 03/12/20 17:46 DC 03/12/20 17:53 4 MG Promethazine HCl 12.5 mg ONCE ONCE IVP 03/12/20 20:15 03/12/20 20:16 DC 03/12/20 20:19 12.5 MG Sodium Biphosphate/ Sodium Phosphate 1 ea ONCE ONCE RI 03/12/20 19:45 03/12/20 19:46 DC 03/12/20 19:55 1 EA Vital Signs/I&O 03/12/20 17:40 Temp 35.2 Pulse 107 Resp 22 B/P (MAP) 100/57 (71) Pulse Ox 100 O2 Delivery Room Air Blood Pressure Mean: 71 Departure Communication (Admissions) Gave a fleets enema as well as a soapsuds enema with a moderate amount of stool output. 2042-I spoke with Dr. Luis, we will admit and she will put orders into the computer. Impression Primary Impression: Cachexia Additional Impression: Intractable abdominal pain Disposition: ADMITTED INPATIENT Condition: Stable Admissions Decision to Admit Reason: Admit from ER (General) Decision to Admit/Date: Mar 12, 2020 Time/Decision to Admit Time: 20:21 Departure-Patient Inst. Referrals: NO,LOCAL PHYSICIAN (PCP/Family) Primary Care Physician ERIC COLLIER APRN Mar 12, 2020 18:44
[2020-03-12 18:59] LABS: BILIRUBIN,URINE 2+ (NEGATIVE); CLARITY,URINE CLEAR; COLOR,URINE YELLOW; GLUCOSE, URINE (UA) NEGATIVE (NEGATIVE); KETONES,URINE NEGATIVE (NEGATIVE); LEUKOCYTE ESTERASE ,URINE NEGATIVE (NEGATIVE); NITRITE,URINE NEGATIVE (NEGATIVE); PROTEIN,URINE 1+ (NEGATIVE)
[2020-03-12 19:22] LABS: AMORPHOUS SEDIMENT,UR MOD AMOR URATES /LPF; BACTERIA,URINE TRACE /HPF; RBC,URINE 0-2 /HPF; WBC,URINE 0-2 /HPF
--- NOTE | 2020-03-12 19:40 | Diagnostic Imaging Report ---
EXAMINATION: CT Abdomen Pelvis without contrast. TECHNIQUE: Multiple contiguous axial images were obtained through the abdomen and pelvis without the use of intravenous contrast. All CT scans use one or more of the following dose optimizing techniques: automated exposure control, MA and/or KvP adjustment based on a patient size and exam type, or iterative reconstruction. HISTORY: Abdominal pain and vomiting. COMPARISON: Ultrasound abdomen 12/07/2019 FINDINGS: Lung bases: There are a few reticulonodular opacities within the periphery of the lower lungs. Partially visualized calcified granuloma within the right lower lung. Solid organs: The liver is normal. Multiple layering hyperdense stones within the gallbladder. There is no biliary ductal dilation. Pancreas is normal. Spleen is normal. Adrenal glands are normal. The kidneys are normal without hydronephrosis. Bowel: The stomach and small bowel are normal without obstruction. There is a large volume of inspissated stool within the rectal vault. No findings of acute appendicitis. Peritoneum: There is no intraperitoneal free fluid or free air. No suspicious lymphadenopathy. Vasculature: Calcification of the aorta without aneurysm. Musculoskeletal: Age-indeterminate compression deformities of the L1 and L2 vertebral bodies. Multilevel degenerativae changes. Pelvis: The uterus and adnexa, the urinary bladder is yaron is normal. IMPRESSION: 1. No acute abnormality in the abdomen or pelvis. 2. Large volume of inspissated stool within the rectal vault. Recommend correlation with any history of fecal impaction. 3. Age-indeterminate compression deformities of the L1 and L2 vertebral bodies. Dictated by: Dictated on workstation # [id number]
[2020-03-12] MEDS ORDERED: FLEET ENEMA ADULT 1 EA BTL PR ONE (19:45)
[2020-03-12] MEDS ORDERED: PROMETHAZINE INJ 25 MG/ML (PHENERGAN) AMP IVP ONE (20:15)
[2020-03-12] MEDS ORDERED: BISACODYL 10 MG SUPP (DULCOLAX) PR PRN (20:45)
[2020-03-12] MEDS ORDERED: ACETAMINOPHEN 650 MG SUPP (TYLENOL) PR PRN (20:45)
[2020-03-12] MEDS ORDERED: PROMETHAZINE INJ 25 MG/ML (PHENERGAN) AMP IM PRN (20:45)
[2020-03-12] MEDS ORDERED: ALPRAZolam 0.25 MG (XANAX) TAB PO PRN (20:45)
[2020-03-12] MEDS ORDERED: FLEET ENEMA ADULT 1 EA BTL PR PRN (20:45)
[2020-03-12] MEDS ORDERED: HYDROcodone/APAP 5 MG/325 MG (LORTAB) TAB PO PRN (20:45)
[2020-03-12] MEDS ORDERED: ACETAMINOPHEN 500 MG TAB (TYLENOL) PO PRN (20:45)
[2020-03-12] MEDS ORDERED: diphenhydrAMINE 50 MG/ML INJ (BENADRYL) IVP PRN (20:45)
[2020-03-12] MEDS ORDERED: diphenhydrAMINE 25 MG TAB (BENADRYL) PO PRN (20:45)
[2020-03-12] MEDS ORDERED: MELATONIN 3 MG TABLET PO PRN (20:45)
[2020-03-12] MEDS ORDERED: DOCUSATE SODIUM 100 MG (COLACE) CAP PO PRN (20:45)
[2020-03-12] MEDS ORDERED: morphine INJ 10 MG/ML 1ML (SYR OR VIAL) IVP PRN (20:45)
[2020-03-12] MEDS ORDERED: CALCIUM CARBONATE 500 MG (TUMS) TAB.CHEW PO PRN (20:45)
[2020-03-12 21:52] VITALS: BP 141/75
[2020-03-12] MEDS ORDERED: SCOPOLAMINE 1.5 MG (TRANSDERM-SCOP) PATCH TD ONE (22:00)
[2020-03-12] MEDS ORDERED: PANTOPRAZOLE 40 MG (PROTONIX) VIAL IV ONE (22:00)
--- NOTE | 2020-03-12 22:31 | NUR ---
BARTOLOME CADENA admitted to room 411-1, with an admitting diagnosis of cachexia, on 03/12/20 from ed via cart, accompanied by staff.BARTOLOME CADENA introduced to surroundings, call light, bed controls, phone, TV, temperature control, lights, meal times, smoking policy, visitor policy, side rail policy, bathrooms and showers. Patient Rights given to patient in the handbook. BARTOLOME CADENA verbalizes understanding that [facility] is not responsible for the loss or damage to any personal effects or valuables that are kept in the patients possessions during their hospitalization. BARTOLOME CADENA verbalizes understanding of Interdisciplinary Patient Education. Patient and/or family were informed about the Rapid Response Team and its purpose.
[2020-03-12] MEDS: inSUlin ASPART (NovoLOG) 1 UNIT/0.01 ML (CHARGE PER UNIT) SC SCH (22:58)
[2020-03-12] MEDS: ENOXAPARIN 30 MG/0.3 ML (LOVENOX) SYR SC SCH (22:59)
[2020-03-12] MEDS: SENNA W/DOCUSATE (SENOKOT S) TABLET PO SCH (22:59)
[2020-03-12] MEDS: polyethylene glycoL POWDER 17 GM (MIRALAX) PACK PO SCH (22:59)
[2020-03-12] MEDS ORDERED: POTASSIUM CL 10MEQ/50ML IVPB 50 ML IV ONE (23:14)
[2020-03-12] MEDS ORDERED: NS IV 1000 ML 1,000 ML ONE (23:14)
[2020-03-12] MEDS: POTASSIUM CHLORIDE INJ 10 MEQ in NS IV 1000 ML 1,000 ML IV SCH (23:28)
[2020-03-13] VITALS (7 sets, daily range): BP systolic 110–143; BP diastolic 57–82
[2020-03-13] MEDS: inSUlin ASPART (NovoLOG) 1 UNIT/0.01 ML (CHARGE PER UNIT) SC SCH ×4 (05:11→20:51)
--- NOTE | 2020-03-13 05:42 | History & Physical-Hospitalist ---
History of Present Illness HPI/Chief Complaint CC: Weakness HPI: This is a 69yoWF known to me from prior admission due to severe nausea and vomiting and hypokalemia who resided at home found with dried bowel movement all over her bottom, unable to make it really at home. She does have an appointment at next week for a lung mass, unsure of the details on that and social professionals is trying to assess that. Ultrasound was ordered by Dr. Ricci and he will see her in consultation. I am replacing her potassium. Source: patient Exam Limitations: no limitations Date Seen 03/13/20 Time Seen by a Provider: 10:00 Attending Physician Soha Luis DO PCP No,Local Physician Referring Physician Date of Admission Mar 12, 2020 at 20:33 Home Medications & Allergies Home Medications Reviewed patient Home Medication Reconciliation performed by pharmacy medication reconciliations oxygen equipment technician and/or nursing. Patients Allergies have been reviewed. Allergies Allergies Coded Allergies No Known Drug Allergies (Unverified12/03/19) Past Uckcelt-Adckdo-Xrgxkx Hx Past Med/Social Hx: Reviewed Nursing Past Med/Soc Hx, Reviewed and Corrections made Patient Social History Marrital Status: single Employed/Student: employed Alcohol Use: Denies Use Recreational Drug Use: No 2nd Hand Smoke Exposure: No Recent Foreign Travel: No Contact w/other who traveled: No Recent Infectious Disease Expo: No Seasonal Allergies Seasonal Allergies: Yes Past Medical History Currently Using CPAP: No Currently Using BIPAP: No Cardiac: High Cholesterol, Hypertension Endocrine: Diabetes, Insulin dep History of Blood Disorders: No Family History Cardiovascular disease 19 FATHER Diabetes mellitus 19 MOTHER G8 BROTHER G8 SISTER Hypertension 19 FATHER Heart Disease, Cancer, Diabetes Review of Systems Constitutional: see HPI, malaise, weakness Gastrointestinal: nausea, vomiting Physical Exam Physical Exam Vital Signs Vital Signs - First Documented 03/12/20 17:40 Temp 35.2 Pulse 107 Resp 22 B/P (MAP) 100/57 (71) Pulse Ox 100 O2 Delivery Room Air Capillary Refill : Less Than 3 Seconds Height, Weight, BMI Height: '" Weight: lbs. oz. kg; 18.24 BMI Method: General Appearance: No Apparent Distress, Anxious, Chronically ill, Cachetic Eyes: Right Eye Normal Inspection, Right Eye PERRL HEENT: PERRL/EOMI, Normal ENT Inspection, Pharynx Normal, Moist Mucous Membranes Neck: Full Range of Motion, Normal Inspection, Non Tender Respiratory: Chest Non Tender, Lungs Clear, Normal Breath Sounds, No Accessory Muscle Use, No Respiratory Distress Cardiovascular: Regular Rate, Rhythm, No Edema, No Gallop, No JVD, No Murmur, Normal Peripheral Pulses Gastrointestinal: Normal Bowel Sounds, No Organomegaly, No Pulsatile Mass, Non Tender, Soft Back: Normal Inspection, No CVA Tenderness, No Vertebral Tenderness Extremity: Normal Capillary Refill, Normal Inspection, Normal Range of Motion, Non Tender, No Calf Tenderness, No Pedal Edema Neurologic/Psychiatric: Alert, Oriented x3, No Motor/Sensory Deficits, Normal Mood/Affect Skin: Normal Color, Warm/Dry Lymphatic: No Adenopathy Results Results/Procedures Labs Laboratory Tests 03/12/20 18:10 03/13/20 06:45 Patient resulted labs reviewed. Assessment/Plan Admission Diagnosis Assessment: Cachexia Hypokalemia DM DM foot ulcer N/V Plan: IVF Replace potassium Dr Ricci consult Admission Status: Inpatient Order (span 2 midnights) Reason for Inpatient Admission: severe cachexia Diagnosis/Problems Diagnosis/Problems (1) Cachexia Status: Acute (2) Intractable abdominal pain Status: Acute (3) Weight loss Status: Acute (4) Dysphagia Status: Resolved Resolution Date/Time: 02/03/20 @ 11:35 (5) T2DM (type 2 diabetes mellitus) Status: Chronic (6) Hypokalemia Status: Resolved Resolution Date/Time: 02/03/20 @ 11:35 (7) JANNIE (acute kidney injury) Status: Acute Clinical Quality Measures DVT/VTE Risk/Contraindication: Risk Factor Score Per Nursin RFS Level Per Nursing on Admit: 2=Moderate SOHA LUIS DO Mar 13, 2020 05:42
--- NOTE | 2020-03-13 06:52 | NUR ---
0230-1500ml soap suds enema given-pt was unable to hold, thick brown stool in tip of enema noted, dark brown water stool expelled. pt tolerated well. 0330-1500ml soap suds enema given-pt was able to hold about half of the enema, moderate amount of thick brown stool along with dark brown watery stool was expelled. pt tolerated well. 0530-1500ml soap suds enema given-pt was able to hold about 3/4 of the enema, moderate amount of thick brown stool along with dark brown watery stool was expelled. pt tolerated well. pt reported that abd was feeling "better doesn't feel as full."
[2020-03-13 07:06] LABS: BASOPHILS % (AUTO) 0 % (0-10); EOSINOPHILS % (AUTO) 0 % (0-10); HEMATOCRIT 36 % (35-52); HEMOGLOBIN 11.7 g/dL (11.5-16.0); LYMPHOCYTES % (AUTO) 19 % (12-44); MEAN CORPUSCULAR HEMOGLOBIN 27 pg (25-34); MEAN CORPUSCULAR HGB CONC 32 g/dL (32-36); MEAN CORPUSCULAR VOLUME 84 fL (80-99); MEAN PLATELET VOLUME 9.3 fL (9.0-12.2); MONOCYTES # (AUTO) 1.1 10^3/uL (0.0-1.0); MONOCYTES % (AUTO) 11 % (0-12); NEUTROPHILS % (AUTO) 69 % (42-75); PLATELET COUNT 447 10^3/uL (130-400); WHITE BLOOD COUNT 10.1 10^3/uL (4.3-11.0)
[2020-03-13 07:16] LABS: POTASSIUM 3.4 MMOL/L (3.6-5.0)
[2020-03-13 07:17] LABS: CALCIUM 7.7 MG/DL (8.5-10.1)
[2020-03-13 07:19] LABS: TOTAL PROTEIN 6.1 GM/DL (6.4-8.2)
[2020-03-13 07:20] LABS: BILIRUBIN,TOTAL 0.8 MG/DL (0.1-1.0)
[2020-03-13 07:22] LABS: CREATININE SERUM 1.02 MG/DL (0.60-1.30)
[2020-03-13] MEDS ORDERED: NS IV 500 ML 500 ML IV ONE (08:30)
[2020-03-13] MEDS: POTASSIUM CL 10MEQ/50ML IVPB 50 ML IV SCH ×4 (09:00→12:08)
[2020-03-13] MEDS: SENNA W/DOCUSATE (SENOKOT S) TABLET PO SCH ×2 (09:01→20:53)
[2020-03-13] MEDS: PANTOPRAZOLE 40 MG (PROTONIX) VIAL IV SCH (09:01)
[2020-03-13] MEDS: polyethylene glycoL POWDER 17 GM (MIRALAX) PACK PO SCH ×2 (09:01→20:53)
[2020-03-13] MEDS: POTASSIUM CHLORIDE INJ 10 MEQ in NS IV 1000 ML 1,000 ML IV SCH ×3 (09:01→23:50)
--- NOTE | 2020-03-13 10:58 | CONSULTATION REPORT ---
DATE OF SERVICE: 03/13/2020 ADMITTING PHYSICIAN: Dr. Luis. HISTORY OF PRESENT ILLNESS: The patient is a 69-year-old female, who was brought in by EMS to the emergency department from [place], [place]. She has had a significant amount of weight loss in the past two to three months and states that her baseline weight is around 140 pounds; however, is down to 105 pounds at this time. She states that she has had intermittent episodes of nausea and vomiting and she does not know the etiology why. She has been given Zofran, which does help some; however, is transient. She also does have a history of gastroesophageal reflux disease and is currently taking Protonix. She does report that after eating food, this tends to worsen the nausea and vomiting as she does have some associated pain in the epigastric region as well as the right upper abdominal quadrant. PAST MEDICAL HISTORY: Hypertension, diabetes and gastroesophageal reflux disease. PAST SURGICAL HISTORY: None. ALLERGIES: No known drug allergies. MEDICATIONS: Amlodipine 10 mg daily, insulin 5 units before meals and at bedtime, metformin 500 mg daily, metoprolol 25 mg b.i.d. and Protonix 40 mg daily. SOCIAL HISTORY: Negative smoke, negative alcohol. FAMILY HISTORY: Noncontributory. REVIEW OF SYSTEMS: This is a thin female currently in no acute distress. She is not experiencing any shortness of breath or difficulty in breathing. No chest pain, palpitations or diaphoresis. Intermittent episodes of nausea and vomiting usually exacerbated by eating meals. She reports emesis of undigested food as well as green bilious material. No hematemesis and no coffee-ground emesis. She also does have a history of constipation; however, since taking laxatives, she has had several bowel movements. No red blood per rectum, no dark tarry stools. No fever, chills, no recent inadvertent weight loss. All other review of systems is negative. PHYSICAL EXAMINATION: VITAL SIGNS: Temperature 35.7, blood pressure 115/67, pulse 113, respirations 20, pulse ox 100% on room air. CHEST: Clear. Good breath sounds bilaterally. HEART: Regular, no murmurs. EXTREMITIES: No lower extremity edema, negative Homans sign. HEENT: No scleral icterus. NECK: No cervical lymphadenopathy. ABDOMEN: Soft and nondistended. There is pain in the epigastric region as well as the right upper abdominal quadrant upon deep palpation. No peritoneal signs. No hernias. SKIN: Warm and dry. LABORATORY DATA: WBC 10.1, hemoglobin 11.7, hematocrit 36 and platelets 447. BUN 18 and creatinine 1.02. ASSESSMENT AND PLAN: A 69-year-old female with intermittent nausea and vomiting, weight loss as well as history of gastroesophageal reflux disease. Looking at the CT scan, there may be small stones versus biliary sludge and the gallbladder is distended. We will get a formal ultrasound. If indicated, which we feel that there is a high probability of, we will then proceed with a laparoscopic cholecystectomy as well as EGD as well as possible colonoscopy. Job ID: [id number] DocumentID: [id number] Dictated Date: 03/13/2020 10:34:47 Printing Supplies Sales Representative Date: 03/13/2020 10:57:57 Dictated By: LAURY CHOWDARY MD
--- NOTE | 2020-03-13 11:51 | Diagnostic Imaging Report ---
PROCEDURE: US Gallbladder. TECHNIQUE: Multiple real-time grayscale images were obtained over the right upper quadrant in various projections. INDICATION: Nausea and vomiting and weight loss. The liver is normal in size at 13.6 cm. No focal liver mass is detected. Portal vein is patent and shows normal direction of flow. The gallbladder does contain multiple mobile stones. No wall thickening is seen. No biliary ductal dilatation is identified. Pancreas is unremarkable. Aorta does show atherosclerotic changes throughout but is non-aneurysmal. IVC is patent. Right kidney demonstrates normal cortical thickness and echogenicity. No calculi or hydronephrosis is seen. There is no ascites. IMPRESSION: 1. Cholelithiasis without evidence of acute cholecystitis. Dictated by: Dictated on workstation # [id number]
[2020-03-13] MEDS ORDERED: MULT-1112 PO (12:32)
[2020-03-13] MEDS ORDERED: PANT40TA52 PO (12:32)
--- NOTE | 2020-03-13 12:33 | NUR ---
SPOKE WITH THE PT AND WENT THRU THE EXT MED HISTORY TO COMPLETE THE MED REC METFORMIN 500MG (LAST FILLED 01-10-2020 #30/30DS), AMLODIPINE 10MG(LAST FILLED 01-10-2020 #30/30DS) AND METOPROLOL TART 25MG (LAST FILLED 12-11-2019 #60/30DS) ARE ALL PAST DUE FOR REFILLS AND I INCLUDED THIS INFORMATION ON THE MED REC PT FILLED BASAGLAR ON 01-10-2020 AND THAT SHOULD LAST THE PT 60 DAYS (ON THE EXT MED HISTORY IT SHOWS A DAY SUPPLY OF 30) OTC MEDS: CHEWABLE MTV
[2020-03-13] MEDS ORDERED: HYDROcodone/APAP 7.5 MG/325 MG (LORTAB, LORCET PLUS) TABLET PO PRN (12:45)
--- NOTE | 2020-03-13 12:45 | Progress Note-Pre Operative ---
Pre-Operative Progress Note H&P Reviewed The H&P was reviewed, patient examined and no changes noted. Date Seen by Provider: Mar 13, 2020 Time Seen by Provider: 13:00 Date H&P Reviewed: Mar 13, 2020 Time H&P Reviewed: 13:00 Pre-Operative Diagnosis: symptomatic chronic calculous cholecystitis. LAURY CHOWDARY MD Mar 13, 2020 12:45
[2020-03-13] MEDS ORDERED: HYDR-3817 PO (12:47)
--- NOTE | 2020-03-13 12:47 | Discharge Inst-Surgical ---
D/C Lap Instructions-RICARDA New, Converted, or Re-Newed RX: RX on Chart Follow Up Appt in 2 weeks Activity as tolerated No driving for 24 hours No driving while on pain medications Incentive Spirometry use every 2 hours while awake Regular Diet Symptoms to Report: Fever over 101 degree F, Nausea/Vomiting Infection Signs and Symptoms to report: Increased redness, Foul odor of wound, Increased drainage Bathing instructions: May shower Operative Area Clean/Dry; Keep incision clean/dry If any problems/questions: Contact your physician or go to Emergency Room LAURY CHOWDARY MD Mar 13, 2020 12:47
--- NOTE | 2020-03-13 14:57 | NUR ---
CM/SS: Visited with pt as per Social Service Consult related to out of home placement. Plan: To be determined - pt is from home and lives there alone, with her sister assisting in her cares. Summary: Pt reports not doing so well since leaving the hospital last time. Pt reports her sister helps her, but she has not felt like getting up and walking due to being dizzy. Pt does report a lung mass that she will have an appt at [facility] on 03-18[facility]20. She reports her doctor at [facility] has made the appt. She does give this worker permission to call her sister Myrna Kemp [phone]. This worker will follow up. Telephone Call to Nidhi - sister of pt - [phone] - She reports helping her sister. She is at her home three times per day - Wednesday -Wednesday and on the weekends one time per day. She reports pt has been really weak and has not felt like eating or drinking much. She would like to see pt get some home care of physical therapy. She is open to help pt, but does express some concern as to her getting to feeling better, as she has been sick for awhile. this worker will follow up.
--- NOTE | 2020-03-13 15:12 | NUR ---
RD ASSESSMENT PMHx: DM; malnutrition; PT INTERACTION: Pt was awake and pleasant during consult for MST score. Pt states current appetite is "getting better," as it had been poor for several months. Note avg PO intake 100% x2meal, per chart review. Pt states following a regular diet at home, and has some issues with chewing food as she is missing several teeth. Pt states some recent issues with nausea and constipation. Note last BM was 03/13, and pt currently on bowel regimen of senna BID, and miralax BID, per chart review. Pt states current DM management is very good. Note recent HbA1c of 14.4 (12/03/2019), per chart review. Pt states recent 40# wt loss x2mon. Note recent 11# wt loss x6w, per chart review. This is significant wt loss at 10%. Upon visual assessment, pt appears undernourished with some visible muscle/fat loss that may or may not be attributed to advanced age, and a BMI of 18.2 (Underweight BMI for age). Note pt has multiple wounds (neck, R heel, L heel), per chart review. Given PO intake, wt hx, and visual assessment, pt meets criteria for malnutrition, per ASPEN guidelines. ABNORMAL NUTRITION-RELATED LAB VALUES LOW: K 3.4; Ca 7.7; Pro 6.1; alb 3.0; HIGH: Est. kcal needs: 5743-0841 kcal | 30-35 kcal/kg Est. Pro needs: 54-63 g Pro | 1.2-1.4 g Pro/kg PES STATEMENT: Inadequate oral intake (NI-2.1) related to loss of appetite, nausea, constipation, as evidenced by pt interview. Inadequate protein intake (NI-5.6.1) related to increased protein needs as evidenced by presence of wound (R diabetic foot ulcer) Acute disease or injury related malnutrition (undernutrition) (NC-4.1.3) related to diminished PO intake as evidenced by pt interview | 10% wt loss x6week | estimated energy intake <75% of estimated energy requirement for >7d INTERVENTION: Continue with current diet order of Regular diet. Would recommend switching to consistent CHO diet, as pt has hx of DM. Pt may benefit from nutrition supplementation if PO intake declines. Did not offer diet education on DM management at this time, as pt was having ultrasound screen procedure during assessment. Will attempt to offer prior to discharge. Will continue to follow and reassess as pt needs, intake, and status change. Leslie Hamilton MS RD LD [phone] cell
[2020-03-13] MEDS: ONDANSETRON 4 MG/2 ML (SDV) Z0FRAN IVP PRN (16:59)
--- NOTE | 2020-03-13 17:37 | NUR ---
PATIENT RECEIVED ONE SOAP SUDS ENEMA TODAY RESULTED IN LIQUID LIGHT BROWN STOOL WITH A SOME FORMED STOOL. PATIENT DID NOT WANT ANOTHER ENEMA THIS AFTERNOON. SHE FEELS MUCH BETTER AND DOESN'T FEEL LIKE SHE NEEDS ANOTHER ONE AT THIS TIME
[2020-03-13] MEDS: ENOXAPARIN 30 MG/0.3 ML (LOVENOX) SYR SC SCH (20:54)
[2020-03-14] VITALS (11 sets, daily range): BP systolic 118–154; BP diastolic 68–93
--- NOTE | 2020-03-14 02:00 | NUR ---
DOWN TI Addendum: 03/14/20 at 0655 by ANUEL HOPE RN DOWN TIME JENNIFER FERNANDEZ
[2020-03-14 04:47] LABS: BASOPHILS % (AUTO) 0 % (0-10); EOSINOPHILS # (AUTO) 0.1 10^3/uL (0.0-0.3); EOSINOPHILS % (AUTO) 2 % (0-10); HEMATOCRIT 32 % (35-52); HEMOGLOBIN 9.8 g/dL (11.5-16.0); LYMPHOCYTES # (AUTO) 1.3 10^3/uL (1.0-4.0); LYMPHOCYTES % (AUTO) 22 % (12-44); MEAN CORPUSCULAR HEMOGLOBIN 27 pg (25-34); MEAN CORPUSCULAR HGB CONC 31 g/dL (32-36); MEAN CORPUSCULAR VOLUME 87 fL (80-99); MEAN PLATELET VOLUME 8.9 fL (9.0-12.2); MONOCYTES # (AUTO) 0.6 10^3/uL (0.0-1.0); MONOCYTES % (AUTO) 10 % (0-12); NEUTROPHILS % (AUTO) 66 % (42-75); PLATELET COUNT 365 10^3/uL (130-400)
[2020-03-14 05:16] LABS: ALBUMIN 2.4 GM/DL (3.2-4.5); POTASSIUM 3.7 MMOL/L (3.6-5.0)
[2020-03-14 05:18] LABS: TOTAL PROTEIN 4.7 GM/DL (6.4-8.2)
[2020-03-14 05:20] LABS: BILIRUBIN,TOTAL 0.5 MG/DL (0.1-1.0)
[2020-03-14 05:22] LABS: CREATININE SERUM 0.96 MG/DL (0.60-1.30)
[2020-03-14] MEDS: inSUlin ASPART (NovoLOG) 1 UNIT/0.01 ML (CHARGE PER UNIT) SC SCH ×4 (06:53→22:33)
[2020-03-14] MEDS: polyethylene glycoL POWDER 17 GM (MIRALAX) PACK PO SCH ×2 (08:12→21:04)
[2020-03-14] MEDS: SENNA W/DOCUSATE (SENOKOT S) TABLET PO SCH ×2 (08:12→21:04)
[2020-03-14] MEDS: PANTOPRAZOLE 40 MG (PROTONIX) VIAL IV SCH (08:31)
[2020-03-14] MEDS: POTASSIUM CHLORIDE INJ 10 MEQ in NS IV 1000 ML 1,000 ML IV SCH (08:31)
--- NOTE | 2020-03-14 09:50 | Occupational Therapy Eval ---
OT Evaluation-General/PLF Medical Diagnosis Admission Date Mar 12, 2020 at 20:33 Medical Diagnosis: abdominal pain; debility Onset Date: Mar 12, 2020 Therapy Diagnosis Therapy Diagnosis: Decreased ADL status Precautions Precautions/Isolations: Fall Prevention, Standard Precautions Referral Physician: Rajesh Referral Reason: Activity Tolerance, Self Care, Evaluation/Treatment, Strengthening/ROM Medical History Pertinent Medical History: DM, Neuropathy Current History admits to ED via EMS with periodic vomiting for months; abdominal/ GI issues with weakness. Pt states decreased ADL/ fx mobility for 3-4 weeks. Reviewed History: Yes Social History Home: Single Level Current Living Status: Alone Entry Into Home: Level Entry Steps Into Home: 0 Steps Inside Home: 0 Sister checks in on pt 1x a day. ADL-Prior Level of Function SCALE: Activities may be completed with or without assistive devices. 0-Xhjidnbnau-kyeishk completes the activity by him/herself with no assistance from a helper. 5-Set-up or Clean-up Assistance-helper sets up or cleans up; patient completes activity. [place] assists only prior to or following the activity. 4-Supervision or Touching Assistance-helper provides verbal cues and/or touc marina/steadying and/or contact guard assistance as patient completes activity. Assistance may be provided throughout the activity or intermittently. 3-Partial/Moderate Assistance-helper does LESS THAN HALF the effort. [place] lifts, holds or supports trunk or limbs, but provides less than half the effort. 2-Substantial/Maximal Assistance-helper does MORE THAN HALF the effort. [place] lifts or holds trunk or limbs and provides more than half the effort. 9-Hspldpkcf-glfuob does ALL the effort. Patient does none of the effort to complete the activity. Or, the assistance of 2 or more helpers is required for the patient to complete the activity. If activity was not attempted, code reason: 7-Patient Refused. 9-Not Applicable-not attempted and the patient did not perform the activity before the current illness, exacerbation or injury. 10-Not Attempted due to Environmental Limitations-(lack of equipment, weather restraints, etc.). 88-Not Attempted due to Medical Conditions or Safety Concerns. ADL PLOF Comments Pt states prior to onset of weakness/ nausea, pt was IND/ driving/ crafting, etc. Self Care: Independent Functional Cognition: Independent DME/Equipment: Bath Chair, Grab Bars, Shower DME/Equipment Comments walker, w/c (borrowed), sc, gb Drive Self: Yes OT Current Status Subjective Pt alert/ oriented upon entry. Pt NPO, preparing for surgery per pt. Pt agrees to OT eval/ treat. Pt repeats self at times, unable to finish thought which requires cues for where pt left off. Mental Status/Objective Patient Orientation: Person, Place, Situation Attachments: IV Current Hearing Aids: No Dentures/Partials: No Hand Dominance: Right Upper Extremity ROM WFL BUE Upper Extremity Coordination WFL BUE Upper Extremity Sensation WFL BUE Upper Extremity Strength Decreased BUE (3+/5) ADL-Treatment Eating (QC): 88 Lower Body Dressing (QC): 4 (per clinical judgement, pt would be able to thread BLE, but will require CGA in stance for balance.) On/Off Footwear (QC): 4 (CGA EOB) Other Treatments Pt educated on OT role. Pt states IND prior to onset of dx, though within last month has had sister helping her with ADLs (all- including dressing/ bathing), stating she wasn't able to get from bed to bathroom (~10 feet) due to weakness. Hx of fall this month with abrasion. Pt has walker at home, though used w/c to go to the car due to decreased strength. Bed mob supine to sit with min A. Dons socks with CGA. 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 Pt states some dizziness, able to side step 2x toward HOB. Pt sits with control. Pt states dizziness upon fast upright positioning, sometimes causing nausea. Pt returns to bed. All needs met, call light in reach. Education OT Patient Education: Progress toward Goal/Update tx plan, Safety issues, Transfer techniques Teaching Recipient: Patient Teaching Methods: Demonstration, Discussion Response to Teaching: Verbalize Understanding, Return Demonstration OT Brick Pitcher Goals Jail Goals Time Frame: Mar 21, 2020 Eating (QC): 6 Oral Hygiene (QC): 6 Toileting Hygiene (QC): 4 Shower/Bathe Self (QC): 4 Upper Body Dressing (QC): 5 Lower Body Dressing (QC): 4 On/Off Footwear (QC): 6 Additional Goals: 1-Demonstrate ADL Tasks, 2-Verbalize Understanding, 3- ImproveStrength/Reina 1=Demonstrate adherence to instructed precautions during ADL tasks. 2=Patient will verbalize/demonstrate understanding of assistive devices/modifications for ADL. 3=Patient will improve strength/tolerance for activity to enable patient to perform ADL's. OT Education/Plan Problem List/Assessment Assessment: Decreased Activ Tolerance, Decreased UE Strength, Dependent Transfers, Impaired Bed Mobility, Impaired Cognition, Impaired Funct Balance, Impaired I ADL's, Impaired Self-Care Skills Discharge Recommendations Plan/Recommendations: Continue POC Therapy Discharge Recommendati: 24 Hour Supervision, Assisted Living, Post Acute OT Treatment Plan/Plan of Care Treatment,Training & Education: Yes Patient would benefit from OT for education, treatment and training to promote independence in ADL's, mobility, safety and/or upper extremity function for ADL's. Plan of Care: ADL Retraining, Functional Mobility, UE Funct Exercise/Act, UE Neuromus Re-Ed/Coord Treatment Duration: Mar 21, 2020 Frequency: 5 times per week Estimated Hrs Per Day: .25 hour per day Agreement: Yes Rehab Potential: Fair Time/GCodes Start Time: 09:20 Stop Time: 09:30 Total Time Billed (hr/min): 10 Billed Treatment Time 1, EVM (10) LIZZY DAVIS OTAshley Mar 14, 2020 09:50
--- NOTE | 2020-03-14 10:06 | Progress Note ---
Subjective Date Seen by a Provider: Mar 14, 2020 Time Seen by a Provider: 09:40 Subjective/Events-last exam Patient seen with Dr. Ricci. Patient reports doing ok this morning. Denies any nausea or vomiting at this time. Still has episodes of RUQ pain. Denies any fever or chills. Objective Exam Vital Signs Date Time Temp Pulse Resp B/P (MAP) Pulse Ox O2 Delivery O2 Flow Rate FiO2 03/14/20 08:00 100 Room Air 03/13/20 23:46 35.6 92 14 125/72 (89) 98 Room Air 03/13/20 20:00 Room Air 03/13/20 20:00 35.9 97 20 110/57 (74) 100 Room Air 03/13/20 16:00 35.8 97 20 135/62 (86) 98 Room Air 03/13/20 11:39 35.9 98 16 113/74 (87) 100 Room Air I & O 03/14/20 07:00 Intake Total 1120 ml Balance 1120 ml Capillary Refill : Less Than 3 Seconds General Appearance: No Apparent Distress, WD/WN Neck: Full Range of Motion, Normal Inspection, Supple Respiratory: Normal Breath Sounds, No Accessory Muscle Use, No Respiratory Distress Cardiovascular: Regular Rate, Rhythm, No Edema Gastrointestinal: normal bowel sounds, soft, tenderness (RUQ) Extremity: Normal Range of Motion, Other (There is a well healing right medial foot wound with good granulation tissue noted. Dressing is C/D/I.) Neurologic/Psychiatric: Alert, Oriented x3 Skin: Normal Color, Warm/Dry Results Lab Laboratory Tests 03/13/20 11:32: Glucometer 131H 03/13/20 16:52: Glucometer 113H 03/13/20 16:53: Coronavirus 2019 (DIVYA) Negative 03/13/20 20:50: Glucometer 162H 03/14/20 04:28: White Blood Count 6.0, Red Blood Count 3.65L, Hemoglobin 9.8L, Hematocrit 32L, Mean Corpuscular Volume 87, Mean Corpuscular Hemoglobin 27, Mean Corpuscular Hemoglobin Concent 31L, Red Cell Distribution Width 18.0H, Platelet Count 365, Mean Platelet Volume 8.9L, Immature Granulocyte % (Auto) 1, Neutrophils (%) (Auto) 66, Lymphocytes (%) (Auto) 22, Monocytes (%) (Auto) 10, Eosinophils (%) (Auto) 2, Basophils (%) (Auto) 0, Neutrophils # (Auto) 4.0, Lymphocytes # (Auto) 1.3, Monocytes # (Auto) 0.6, Eosinophils # (Auto) 0.1, Basophils # (Auto) 0.0, Immature Granulocyte # (Auto) 0.0, Sodium Level 134L, Potassium Level 3.7, Chloride Level 106, Carbon Dioxide Level 18L, Anion Gap 10, Blood Urea Nitrogen 13, Creatinine 0.96, Estimat Glomerular Filtration Rate 58, BUN/Creatinine Ratio 14, Glucose Level 103, Calcium Level 7.0L, Corrected Calcium 8.3L, Total Bilirubin 0.5, Aspartate Amino Transf (AST/SGOT) 16, Alanine Aminotransferase (ALT/SGPT) 10, Alkaline Phosphatase 91, Total Protein 4.7L, Albumin 2.4L 03/14/20 05:03: Glucometer 94 Assessment/Plan Assessment/Plan Assess & Plan/Chief Complaint A 69 year old female with chronic calculous cholecystitis. Will proceed with a laparoscopic cholecystectomy today. Clinical Quality Measures DVT/VTE Risk/Contraindication: Risk Factor Score Per Nursin RFS Level Per Nursing on Admit: 2=Moderate KIRTI ENRIQUE ACCOUNTS RECEIVABLE SUPERVISOR Mar 14, 2020 10:06
--- NOTE | 2020-03-14 11:51 | NUR ---
CM/SS: Visit with pt as per her current status - checking to see how she is feeling today and if she has informed her sister of her gallbladder surgery. Plan: Undetermined at this time Summary: Pt was working with the Occupational Therapist at the time of the visit. Pt reports having her surgery today. Pt is asked about her sister knowing that she was having it today. Pt reports her sister is aware of the surgery. This worker shares with pt that they will follow u pwith her after her surgery. Pt verbalizes understanding.
--- NOTE | 2020-03-14 12:14 | Physical Therapy Evaluation ---
PT Evaluation-General Medical Diagnosis Admission Date Mar 12, 2020 at 20:33 Medical Diagnosis: abdominal pain; debility Onset Date: Mar 12, 2020 Therapy Diagnosis Therapy Diagnosis: generalized weakness/debility Precautions Precautions/Isolations: Fall Prevention, Standard Precautions Referral Physician: Toby Reason for Referral: Evaluation/Treatment Medical History Pertinent Medical History: DM, Neuropathy Additional Medical History lung mass Current History EMS secondary to N/V Reviewed History: Yes Social History Home: Single Level Current Living Status: Alone Entry Into Home: Level Entry PT Steps Into Home: 0 PT Steps Inside Home: 0 Prior Prior Level of Function SCALE: Activities may be completed with or without assistive devices. 9-Wqowunaxwn-iyhvauw completes the activity by him/herself with no assistance from a helper. 5-Set-up or Clean-up Assistance-helper sets up or cleans up; patient completes activity. [place] assists only prior to or following the activity. 4-Supervision or Touching Assistance-helper provides verbal cues and/or touching/steadying and/or contact guard assistance as patient completes activity. Assistance may be provided throughout the activity or intermittently. 3-Partial/Moderate Assistance-helper does LESS THAN HALF the effort. [place] lifts, holds or supports trunk or limbs, but provides less than half the effort. 2-Substantial/Maximal Assistance-helper does MORE THAN HALF the effort. [place] lifts or holds trunk or limbs and provides more than half the effort. 4-Wvrecxaht-footfn does ALL the effort. Patient does none of the effort to complete the activity. Or, the assistance of 2 or more helpers is required for the patient to complete the activity. If activity was not attempted, code reason: 7-Patient Refused. 9-Not Applicable-not attempted and the patient did not perform the activity before the current illness, exacerbation or injury. 10-Not Attempted due to Environmental Limitations-(lack of equipment, weather restraints, etc.). 88-Not Attempted due to Medical Conditions or Safety Concerns. Bed Mobility: 6 Transfers (B,C,W/C): 6 Gait: 6 Stairs: 9 Indoor Mobility (Ambulation): Independent Stairs: Not Applicalbe Prior Devices Use: Walker PT Evaluation-Current Subjective Patient reports she can only go a short distance before she has to sit and rest. Objective Patient Orientation: Normal For Age Attachments: Goodman Catheter, IV ROM/Strength ROM Lower Extremities bilateral LE WFL Strength Lower Extremities 3/5 grossly bilateral LE Integumentary/Posture Integumentary refer to nursing notes Bladder Incontinence: Goodman Cath Posture slightly kyphotic Sensory Vision: Functional Hearing: Functional Hand Dominance: Right Transfers Lying to Sitting/Side of Bed(Q: 5 Sit to Stand (QC): 3 Chair/Isf-pv-Xmtsq Xfer(QC): 3 Gait Does the Patient Walk?: Yes Mode of Locomotion: Walk Anticipated Mode of Locomotion: Walk Walk 10 feet (QC): 3 Walk 50 ft with 2 Turns(QC): 3 Walk 150 ft (QC): 88 Gait Assistive Device: FWW Comments/Gait Description patient becomes very weak with bilateral knees buckling Balance Sitting Static: Normal Sitting Dynamic: Normal Standing Static: Fair Standing Dynamic: Fair Assessment/Needs 69 y.o. female, will benefit from skilled PT to address functional strength and mobility to improve current LOF. Rehab Potential: Fair PT Floor Steward/Stewardess Goals Fpc Goals PT Fpc Goals Time Frame: Mar 23, 2020 Roll Left & Right (QC): 5 Sit to Lying (QC): 5 Lying-Sitting on Side/Bed(QC): 5 Sit to Stand (QC): 5 Chair/Rnp-hg-Xhyat Xfer(QC): 5 Toilet Transfer (QC): 5 Does the Patient Walk: Yes Walk 10 feet (QC): 5 Walk 50ft with 2 Turns (QC): 5 PT Plan Problem List Problem List: Activity Tolerance, Functional Strength, Balance, Gait, Transfer Treatment/Plan Treatment Plan: Continue Plan of Care Treatment Plan: Bed Mobility, Education, Functional Activity Reina, Functional Strength, Gait, Safety, Therapeutic Exercise, Transfers Treatment Duration: Mar 23, 2020 Frequency: 6 times per week Estimated Hrs Per Day: .25 hour per day Patient and/or Family Agrees t: Yes Time/GCodes Time In: 1050 Time Out: 1101 Total Billed Treatment Time: 11 Total Billed Treatment 1 visit EVMod 11 min BRICE LOO PT Mar 14, 2020 12:14
[2020-03-14] MEDS ORDERED: LIDOCAINE/EPI 1%-1:200,000 (XYLOCAINE) 30 ML VIAL ONE (12:42)
[2020-03-14] MEDS ORDERED: ONDANSETRON 4 MG/2 ML (SDV) Z0FRAN ONE (12:55)
[2020-03-14] MEDS ORDERED: LIDOCAINE PF 2% 5 ML (XYLOCAINE) VIAL ONE (12:55)
[2020-03-14] MEDS ORDERED: ROCURONIUM 10 MG/ML 5 ML SYRINGE IV ONE (12:55)
[2020-03-14] MEDS ORDERED: MIDAZOLAM 2 MG/2 ML (VERSED) VIAL ONE (12:55)
[2020-03-14] MEDS ORDERED: fentaNYL INJECTION 100 MCG/2 ML AMP ONE (12:55)
[2020-03-14] MEDS ORDERED: proPOfol 200 MG/20 ML (DIPRIVAN) VIAL IV ONE (12:55)
[2020-03-14] MEDS ORDERED: GLYCOPYRROLATE 0.2 MG/ML (ROBINUL) 2 ML VIAL ONE (12:56)
[2020-03-14] MEDS ORDERED: NEOSTIGMINE 3 MG/3 ML VIAL ONE (12:56)
[2020-03-14] MEDS ORDERED: SEVOFLURANE (ULTANE) 15 ML INHAL SOLN ONE ×2 (12:56→14:33)
[2020-03-14] MEDS ORDERED: ceFAZolin INJECTION 1,000 MG in WATER (STERILE) FOR INJECTION 10 ML IV NR (13:00)
--- NOTE | 2020-03-14 13:33 | NUR ---
PATIENT LEFT FLOOR FOR SURGERY VIA BED
[2020-03-14] MEDS: LACTATED RINGERS 1,000 ML IV PRN ×2 (13:40→14:25)
[2020-03-14] MEDS ORDERED: ceFAZolin INJECTION 1,000 MG ONE (13:52)
[2020-03-14] MEDS ORDERED: PHENYLEPHRINE 100 MCG/ML 10 ML (ANESTHESIA) SYR ONE (14:01)
--- NOTE | 2020-03-14 14:46 | Progress Note-Post Operative ---
Post-Operative Progess Note Surgeon (s)/Solar Field Service Technician (s) Surgeon LAURY CHOWDARY MD Solar Field Service Technician: griselda freeman VICE PRESIDENT [employer] Pre-Operative Diagnosis symptomatic chronic calculous cholecystitis. Post-Operative Diagnosis same Procedure & Operative Findings Date of Procedure 03/14/20 Procedure Performed/Findings laparoscopic cholecystectomy. Anesthesia Type get Estimated Blood Loss Estimated blood loss (mL): minimal Specimens/Packing Specimens Removed gallbladder LAURY CHOWDARY MD Mar 14, 2020 14:46
[2020-03-14] MEDS ORDERED: fentaNYL INJECTION 100 MCG/2 ML AMP IVP ONE (15:00)
[2020-03-14] MEDS ORDERED: morphine INJ 10 MG/ML 1ML (SYR OR VIAL) IVP ONE (15:00)
[2020-03-14] MEDS ORDERED: ONDANSETRON 4 MG/2 ML (SDV) Z0FRAN IVP PRN (15:00)
[2020-03-14] MEDS ORDERED: SUGAMMADEX 500 MG/5 ML VIAL (BRIDION) IV ONE (15:03)
--- NOTE | 2020-03-14 16:16 | NUR ---
IRF Evaluation Determination: Accepted Chart review complete and findings discussed with Dr. Luis - patient accepted. Patient underwent laparoscopic cholecystectomy today; therefore, tomorrow's therapy notes to be reviewed. SW notified of patient's ability to benefit from inpatient rehab. The ARU continues to be capped at 8; therefore, date of admission is dependent on bed availability. Will continue to follow. Thank you for this referral.
--- NOTE | 2020-03-14 16:54 | Progress Note ---
Subjective Subjective/Events-last exam Pt reports feeling okay, is waiting to go to surgery. Objective Exam Last Set of Vital Signs Vital Signs Date Time Temp Pulse Resp B/P (MAP) Pulse Ox O2 Delivery O2 Flow Rate FiO2 03/14/20 16:00 36.2 103 20 149/82 (104) 99 Room Air 03/14/20 15:30 2 Capillary Refill : Less Than 3 Seconds I&O Intake and Output 03/14/20 00:00 Intake Total 1220 ml Balance 1220 ml Intake Oral 1020 ml IV Total 200 ml # Voids 6 # Bowel Movements 9 General: Alert, No Acute Distress Lungs: Clear to Auscultation, Normal Air Movement Heart: Regular Rate, No Murmurs Abdomen: Normal Bowel Sounds, Soft, No Tenderness Psych/Mental Status: Mood NL Results/Procedures Lab Laboratory Tests 03/13/20 16:52: Glucometer 113H 03/13/20 16:53: Coronavirus 2019 (DIVYA) Negative 03/13/20 20:50: Glucometer 162H 03/14/20 04:28: White Blood Count 6.0, Red Blood Count 3.65L, Hemoglobin 9.8L, Hematocrit 32L, Mean Corpuscular Volume 87, Mean Corpuscular Hemoglobin 27, Mean Corpuscular Hemoglobin Concent 31L, Red Cell Distribution Width 18.0H, Platelet Count 365, Mean Platelet Volume 8.9L, Immature Granulocyte % (Auto) 1, Neutrophils (%) (Auto) 66, Lymphocytes (%) (Auto) 22, Monocytes (%) (Auto) 10, Eosinophils (%) (Auto) 2, Basophils (%) (Auto) 0, Neutrophils # (Auto) 4.0, Lymphocytes # (Auto) 1.3, Monocytes # (Auto) 0.6, Eosinophils # (Auto) 0.1, Basophils # (Auto) 0.0, Immature Granulocyte # (Auto) 0.0, Sodium Level 134L, Potassium Level 3.7, Chloride Level 106, Carbon Dioxide Level 18L, Anion Gap 10, Blood Urea Nitrogen 13, Creatinine 0.96, Estimat Glomerular Filtration Rate 58, BUN/Creatinine Ratio 14, Glucose Level 103, Calcium Level 7.0L, Corrected Calcium 8.3L, Total Bilirubin 0.5, Aspartate Amino Transf (AST/SGOT) 16, Alanine Aminotransferase (ALT/SGPT) 10, Alkaline Phosphatase 91, Total Protein 4.7L, Albumin 2.4L 03/14/20 05:03: Glucometer 94 03/14/20 11:06: Glucometer 94 03/14/20 16:06: Glucometer 151H Microbiology 03/13/20 MRSA Screen - Final, Complete MRSA not isolated Assessment/Plan Assessment/Plan (1) Gall stones Assessment & Plan: With recurrent pain and vomiting, to OR today per Dr. Ricci. (2) Intractable abdominal pain Status: Acute (3) Weight loss Status: Acute Assessment & Plan: EGD and cholecystectomy today. (4) T2DM (type 2 diabetes mellitus) Status: Chronic Qualifiers: Clinical Quality Measures DVT/VTE Risk/Contraindication: Risk Factor Score Per Nursin RFS Level Per Nursing on Admit: 2=Moderate CYNTHIA BOWIE MD Mar 14, 2020 16:54
--- NOTE | 2020-03-14 19:48 | OPERATIVE REPORT ---
DATE OF SERVICE: 03/14/2020 ADMITTING PHYSICIAN: Dr. Luis. ATTENDING PRIMARY CARE PHYSICIAN: Dr. Winifred Gaytan. PREOPERATIVE DIAGNOSIS: Symptomatic chronic calculous cholecystitis. POSTOPERATIVE DIAGNOSIS: Symptomatic chronic calculous cholecystitis. PROCEDURE: Laparoscopic cholecystectomy. SURGEON: Laury Ricci MD. ANESTHESIA: General endotracheal. CHEMICAL WEIGHER: Cecil Bruner APRN ESTIMATED BLOOD LOSS: Minimal. FINDINGS: There was slightly distended gallbladder. The liver, stomach, omentum, small bowel, colon as well as uterus and ovaries appeared normal with no signs of any neoplastic process or malignancy. DISPOSITION: The patient tolerated the procedure well. INDICATIONS: The patient is a 69-year-old female who was brought in by EMS to the Emergency Department from [place], [place]. She has had a significant amount of weight loss in the past 3 months and she states that she has lost approximately 40 pounds in this time frame. She has had intermittent episodes of nausea and vomiting. She has a history of gastroesophageal reflux disease and we had done an upper endoscopy on her and she was found to have a mild distal esophageal stricture, which was dilated and since that time, she states that food has been able to go down; however, she states that she feels bloated and nauseous after eating. A CT scan was performed, which did not show any abnormalities. An ultrasound was then performed, which did show gallstones. DESCRIPTION OF PROCEDURE: The patient was brought to the operating room, laid supine on the table. After adequate IV pain and sedative medications and general endotracheal intubation, the abdomen was prepped and draped in standard surgical fashion. A 0.5% Marcaine with epinephrine was then used to anesthetize overlying skin in the left upper abdominal quadrant and a transverse skin incision made using a 15 blade. An 0 silk suture was applied to the medial aspect incision for retraction and a Veress needle inserted with a low opening pressure of 0 mmHg and the abdomen was insufflated to 15 mmHg pressure. The Veress needle removed and a 5 mm XL trocar placed followed by a 5 mm 45-degree angle laparoscope visualizing the peritoneal cavity. A 4-quadrant abdominal exploration was performed. The liver appeared normal and there was a slightly distended gallbladder, no gallbladder wall thickening. What was visualized the omentum, stomach, small bowel, colon appeared normal. There was a small amount of free fluid within the peritoneal cavity, which appeared to be physiologic. The uterus and ovaries appeared normal with no neoplastic processes or any carcinomatosis identified. Under direct visualization, we proceeded to place a supraumbilical 10 mm port after the skin and peritoneal lining were anesthetized using 0.5% Marcaine with epinephrine and a transverse skin incision made using a 15 blade. In a similar manner, a right upper abdominal quadrant 5 mm port was placed. The patient was then placed in reverse Trendelenburg position as well as plane right side up, left side down and the gallbladder fundus retracted anteriorly and superiorly. The hepatoduodenal ligament was then opened using blunt dissection as well as electrocautery on the hook instrument. The entire critical view of safety was identified including the triangle of Calot as well as the cystic duct and artery as only two structures going into the gallbladder as well as the cystic plate behind the proximal gallbladder. A timeout was then taken and the cystic duct and artery were then clipped proximally, distally and cut with EndoShears. The gallbladder was then dissected off the liver bed using cautery on hook instrument with visualization of good hemostasis as well as no leaking ducts of Luschka. The gallbladder was removed through the 10 mm port site using an EndoCatch bag. The 10 mm port site fascia and peritoneum were then closed under direct visualization using a Ayden-Jef device and 0 Vicryl suture. The abdomen was desufflated and remaining ports removed. All skin incisions were closed using 4-0 Monocryl running subcuticular sutures. Wounds were then cleaned and covered with Dermabond. The patient tolerated the procedure well. We will start IV normal pain medication as well as a clear liquid diet and advance diet as tolerated. Once she is tolerating a diet, has adequate pain control and is ambulating well, we will discharge her home. Job ID: [id number] DocumentID: [id number] Dictated Date: 03/14/2020 14:55:04 [place] Date: 03/14/2020 19:47:45 Dictated By: LAURY RICCI MD
[2020-03-14] MEDS: ENOXAPARIN 30 MG/0.3 ML (LOVENOX) SYR SC SCH (21:05)
[2020-03-15] VITALS (7 sets, daily range): BP systolic 120–159; BP diastolic 61–88
[2020-03-15] MEDS: POTASSIUM CHLORIDE INJ 10 MEQ in NS IV 1000 ML 1,000 ML IV SCH ×2 (01:20→12:30)
[2020-03-15] MEDS: inSUlin ASPART (NovoLOG) 1 UNIT/0.01 ML (CHARGE PER UNIT) SC SCH ×4 (05:14→21:11)
[2020-03-15 05:42] LABS: MEAN PLATELET VOLUME 9.1 fL (9.0-12.2); WHITE BLOOD COUNT 8.4 10^3/uL (4.3-11.0)
[2020-03-15 06:20] LABS: ALBUMIN 2.5 GM/DL (3.2-4.5)
[2020-03-15 06:21] LABS: CHLORIDE 106 MMOL/L (98-107); POTASSIUM 3.6 MMOL/L (3.6-5.0); SODIUM 134 MMOL/L (135-145)
[2020-03-15 06:23] LABS: GLUCOSE 101 MG/DL (70-105); TOTAL PROTEIN 4.8 GM/DL (6.4-8.2)
[2020-03-15 06:24] LABS: CARBON DIOXIDE 17 MMOL/L (21-32)
[2020-03-15 06:25] LABS: BILIRUBIN,TOTAL 0.5 MG/DL (0.1-1.0)
[2020-03-15 06:26] LABS: ALKALINE PHOSPHATASE 90 U/L (40-136)
[2020-03-15 06:27] LABS: CREATININE SERUM 0.78 MG/DL (0.60-1.30); GFR ESTIMATED > 60
[2020-03-15 06:28] LABS: BUN/CREATININE RATIO 10
[2020-03-15 06:29] LABS: ALANINE AMINOTRANSFERASE 28 U/L (0-55)
--- NOTE | 2020-03-15 07:30 | Anesthesia-General Post-Op ---
General Patient Condition Mental Status/LOC: Same as Preop Cardiovascular: Satisfactory Nausea/Vomiting: Absent Respiratory: Satisfactory Pain: Controlled Complications: Absent Post Op Complications Complications None Follow Up Care/Instructions Patient Instructions None needed. Anesthesia/Patient Condition Patient Condition Patient is doing well, no complaints, stable vital signs, no apparent adverse anesthesia problems. No complications reported per nursing. ANNA GARBER CRNA Mar 15, 2020 07:30
[2020-03-15] MEDS: SENNA W/DOCUSATE (SENOKOT S) TABLET PO SCH ×2 (08:38→20:26)
[2020-03-15] MEDS: PANTOPRAZOLE 40 MG (PROTONIX) VIAL IV SCH (08:38)
[2020-03-15] MEDS: polyethylene glycoL POWDER 17 GM (MIRALAX) PACK PO SCH ×2 (08:38→20:26)
--- NOTE | 2020-03-15 09:48 | NUR ---
CM/SS: Visited with pt as to her current status and to discuss discharge plan - also discuss the possibility of Inpatient Rehab services. Plan: Undetermined at this time - Pt is from home, and is likely to either go to inpatient rehab or home with home care or outpatient therapy services. Summary: Pt reports feeling better today since having her gallbladder out. Pt reports still being weak and needing to get her strength up. Pt is open to work with physical therapy, as well as visiting with someone from in patient rehab. Pt's goal is to get stronger to get back to work. Pt also has appt at [facility] on Sunday 03/18 to follow up on her lung mass. This worker notified July - inpatient rehab and requested that she talk with pt to obtain some information. She will follow up.
--- NOTE | 2020-03-15 10:43 | Physical Therapy Daily Note ---
PT Daily Note-Current Subjective Patient states, "I feel like a new woman." Agrees to PT. Mental Status Patient Orientation: Normal For Age Attachments: IV Transfers SCALE: Activities may be completed with or without assistive devices. 8-Ijviqdqmbj-qidcetl completes the activity by him/herself with no assistance from a helper. 5-Set-up or Clean-up Assistance-helper sets up or cleans up; patient completes activity. [place] assists only prior to or following the activity. 4-Supervision or Touching Assistance-helper provides verbal cues and/or touching/steadying and/or contact guard assistance as patient completes activity. Assistance may be provided throughout the activity or intermittently. 3-Partial/Moderate Assistance-helper does LESS THAN HALF the effort. [place] lifts, holds or supports trunk or limbs, but provides less than half the effort. 2-Substantial/Maximal Assistance-helper does MORE THAN HALF the effort. [place] lifts or holds trunk or limbs and provides more than half the effort. 4-Aghvqcepp-bapzaa does ALL the effort. Patient does none of the effort to complete the activity. Or, the assistance of 2 or more helpers is required for the patient to complete the activity. If activity was not attempted, code reason: 7-Patient Refused. 9-Not Applicable-not attempted and the patient did not perform the activity before the current illness, exacerbation or injury. 10-Not Attempted due to Environmental Limitations-(lack of equipment, weather restraints, etc.). 88-Not Attempted due to Medical Conditions or Safety Concerns. Sit to Stand (QC): 3 Gait Training Does the Patient Walk?: Yes Distance: 50' x 4 Walk 10 feet (QC): 3 Walk 50 ft with 2 Turns(QC): 3 Gait Assistive Device: FWW safe and functional gait sequence/noted decrease SAO2 with activity with patient c/o dizziness and SOA. SAO2 79% RA with activity. RN notified and O2 placed at 3L NC with time to improve SAO2 to 89%. Exercises Seated Therapy Exercises: Ankle pumps, Long arc quads, Hip flexion Seated Reps: 15 Treatments noted decrease SAO2 with activity with patient c/o dizziness and SOA. SAO2 79% RA with activity. RN notified and O2 placed at 3L NC with time to improve SAO2 to 89%. Assessment Patient requiring O2 with activity with noted decrease in SAO2 with activity. RN made aware. Patient much improved with activity with O2 use. PT Jail Goals Neurology Tech Goals PT Neurology Tech Goals Time Frame: Mar 23, 2020 Roll Left & Right (QC): 5 Sit to Lying (QC): 5 Lying-Sitting on Side/Bed(QC): 5 Sit to Stand (QC): 5 Chair/Hmi-qg-Bmuza Xfer(QC): 5 Toilet Transfer (QC): 5 Does the Patient Walk: Yes Walk 10 feet (QC): 5 Walk 50ft with 2 Turns (QC): 5 PT Plan Treatment/Plan Treatment Plan: Continue Plan of Care Treatment Plan: Bed Mobility, Education, Functional Activity Reina, Functional Strength, Gait, Safety, Therapeutic Exercise, Transfers Treatment Duration: Mar 23, 2020 Frequency: 6 times per week Estimated Hrs Per Day: .25 hour per day Patient and/or Family Agrees t: Yes Time/GCodes Time In: 925 Time Out: 951 Total Billed Treatment Time: 26 Total Billed Treatment 1 visit EX 10 min FA 16 min BRICE LOO PT Mar 15, 2020 10:42
--- NOTE | 2020-03-15 10:44 | Occupational Ther Daily Note ---
OT Current Status-Daily Note Subjective Pt in recliner upon entry. AxO. Pt agrees to OT tx, denies pain. Mental Status/Objective Patient Orientation: Person, Place, Situation Attachments: IV ADL-Treatment Therapy Code Descriptions/Definitions Functional [place] Measure: 0=Not Assessed/NA 4=Minimal Assistance 1=Total Assistance 5=Supervision or Setup 2=Maximal Assistance 6=Modified [place] 3=Moderate Assistance 7=Complete IndependenceSCALE: Activities may be completed with or without assistive devices. 4-Sxfptlyggx-wronerq completes the activity by him/herself with no assistance from a helper. 5-Set-up or Clean-up Assistance-helper sets up or cleans up; patient completes activity. [place] assists only prior to or following the activity. 4-Supervision or Touching Assistance-helper provides verbal cues and/or touching/steadying and/or contact guard assistance as patient completes activity. Assistance may be provided throughout the activity or intermittently. 3-Partial/Moderate Assistance-helper does LESS THAN HALF the effort. [place] lifts, holds or supports trunk or limbs, but provides less than half the effort. 2-Substantial/Maximal Assistance-helper does MORE THAN HALF the effort. [place] lifts or holds trunk or limbs and provides more than half the effort. 8-Mnlgbeokg-auwokt does ALL the effort. Patient does none of the effort to complete the activity. Or, the assistance of 2 or more helpers is required for the patient to complete the activity. If activity was not attempted, code reason: 7-Patient Refused. 9-Not Applicable-not attempted and the patient did not perform the activity before the current illness, exacerbation or injury. 10-Not Attempted due to Environmental Limitations-(lack of equipment, weather restraints, etc.). 88-Not Attempted due to Medical Conditions or Safety Concerns. Eating (QC): 6 (drinks with IND.) Oral Hygiene (QC): 5 (s/u mouth swab) Toileting Hygiene (QC): 4 Toilet Transfer (QC): 3 Other Treatment Pt sit to stand from recliner with SBA. Utilizes walker with CGA as OT manipulates IV pole. Pt sits on toilet with CGA. Completes urination/ wipes in sit. Sit to stand from low toilet with min A. 1 instance of decreased balance, requiring CGA throughout. Pt states, "Please hurry," stating she is very dizzy in stance. Pt returns to recliner with CGA. Pt able to complete oral care in sit/ water sipping. Pt completes 2 sets of 10 repetitions bilaterally of shoulder horizontal ab/ adduction and forward flexion. Pt talks throughout, no SOB noted. Pt denies needs, call light in reach. LE's brought up. Education OT Patient Education: Correct positioning, Exercise program, Home exercise program, Purpose of tx/functional activities, Safety issues, Transfer techniques Teaching Recipient: Patient Teaching Methods: Demonstration, Discussion Response to Teaching: Verbalize Understanding, Return Demonstration OT Meat And Seafood Clerk Goals Meat And Seafood Clerk Goals Time Frame: Mar 21, 2020 Eating (QC): 6 Oral Hygiene (QC): 6 Toileting Hygiene (QC): 4 Shower/Bathe Self (QC): 4 Upper Body Dressing (QC): 5 Lower Body Dressing (QC): 4 On/Off Footwear (QC): 6 Additional Goals: 1-Demonstrate ADL Tasks, 2-Verbalize Understanding, 3-ImproveStrength/Reina 1=Demonstrate adherence to instructed precautions during ADL tasks. 2=Patient will verbalize/demonstrate understanding of assistive devices/modifications for ADL. 3=Patient will improve strength/tolerance for activity to enable patient to perform ADL's. OT Education/Plan Problem List/Assessment Assessment: Decreased Activ Tolerance, Decreased UE Strength, Dependent Transfers, Impaired Funct Balance, Impaired I ADL's, Impaired Self-Care Skills Discharge Recommendations Plan/Recommendations: Continue POC Therapy Discharge Recommendati: Assisted Living, Post Acute OT Treatment Plan/Plan of Care Treatment,Training & Education: Yes Patient would benefit from OT for education, treatment and training to promote independence in ADL's, mobility, safety and/or upper extremity function for ADL's. Plan of Care: ADL Retraining, Functional Mobility, UE Funct Exercise/Act, UE Neuromus Re-Ed/Coord Treatment Duration: Mar 21, 2020 Frequency: 5 times per week Estimated Hrs Per Day: .25 hour per day Agreement: Yes Rehab Potential: Fair Time/GCodes Start Time: 10:15 Stop Time: 10:24 Total Time Billed (hr/min): 9 Billed Treatment Time 1, ADL (9) LIZZY DAVIS OTR Mar 15, 2020 10:44
--- NOTE | 2020-03-15 12:02 | Progress Note ---
Subjective Date Seen by a Provider: Mar 15, 2020 Time Seen by a Provider: 12:00 Subjective/Events-last exam doing ok. pain controlled. no fever/chills. small PO intake however able to tolerate liquids. Objective Exam Vital Signs Date Time Temp Pulse Resp B/P (MAP) Pulse Ox O2 Delivery O2 Flow Rate FiO2 03/15/20 08:00 Room Air 03/15/20 08:00 36.9 104 19 95 Room Air 03/15/20 04:16 36.8 93 16 138/88 (105) 99 Room Air 03/15/20 00:30 36.2 90 16 159/84 (109) 99 Room Air 03/14/20 19:25 Room Air 03/14/20 19:16 36.4 92 18 146/80 (102) 100 Room Air 03/14/20 16:00 36.2 103 20 149/82 (104) 99 Room Air 03/14/20 15:50 Room Air 03/14/20 15:50 36.5 22 118/68 (85) 100 Room Air 03/14/20 15:40 Room Air 03/14/20 15:40 22 140/76 (97) 100 Room Air 03/14/20 15:30 OxyMask 2 03/14/20 15:30 20 137/88 (104) 98 OxyMask 2 03/14/20 15:20 20 136/77 (96) 100 OxyMask 4 03/14/20 15:20 OxyMask 4 03/14/20 15:10 16 154/93 (113) 99 OxyMask 6 03/14/20 15:10 OxyMask 6 03/14/20 15:00 OxyMask 8 03/14/20 15:00 20 150/77 (101) 100 T Piece 8 03/14/20 14:51 36.5 12 144/75 (98) 100 T Piece 10 03/14/20 14:51 T Piece 10 I & O 03/15/20 07:00 Intake Total 4460 ml Balance 4460 ml Capillary Refill : Less Than 3 Seconds General Appearance: No Apparent Distress HEENT: PERRL/EOMI Neck: Full Range of Motion Respiratory: Chest Non Tender, Lungs Clear, Normal Breath Sounds Cardiovascular: Regular Rate, Rhythm Gastrointestinal: normal bowel sounds, soft, tenderness Extremity: Normal Capillary Refill Neurologic/Psychiatric: Alert, Oriented x3 Skin: Normal Color Lymphatic: No Adenopathy Results Lab Laboratory Tests 03/14/20 16:06: Glucometer 151H 03/14/20 22:23: Glucometer 134H 03/15/20 04:50: White Blood Count 8.4, Red Blood Count 3.67L, Hemoglobin 10.0L, Hematocrit 33L, Mean Corpuscular Volume 89, Mean Corpuscular Hemoglobin 27, Mean Corpuscular Hemoglobin Concent 31L, Red Cell Distribution Width 18.1H, Platelet Count 366, Mean Platelet Volume 9.1, Sodium Level 134L, Potassium Level 3.6, Chloride Level 106, Carbon Dioxide Level 17L, Anion Gap 11, Blood Urea Nitrogen 8, Creatinine 0.78, Estimat Glomerular Filtration Rate > 60, BUN/Creatinine Ratio 10, Glucose Level 101, Calcium Level 7.0L, Corrected Calcium 8.2L, Total Bilirubin 0.5, Aspartate Amino Transf (AST/SGOT) 61H, Alanine Aminotransferase (ALT/SGPT) 28, Alkaline Phosphatase 90, Total Protein 4.8L, Albumin 2.5L 03/15/20 05:08: Glucometer 92 03/15/20 11:08: Glucometer 183H Microbiology 03/13/20 MRSA Screen - Final, Complete MRSA not isolated Assessment/Plan Assessment/Plan Assess & Plan/Chief Complaint s/p lap claude for anorexia and weight loss. encourage PO. increase ambulation. unsure of home status and may require placement. Clinical Quality Measures DVT/VTE Risk/Contraindication: Risk Factor Score Per Nursin RFS Level Per Nursing on Admit: 2=Moderate LAURY CHOWDARY MD Mar 15, 2020 12:02
--- NOTE | 2020-03-15 13:48 | Progress Note - Hospitalist ---
Subjective HPI/CC On Admission Date Seen by Provider: Mar 15, 2020 Time Seen by Provider: 12:00 CC: Weakness HPI: This is a 69yoWF known to me from prior admission due to severe nausea and vomiting and hypokalemia who resided at home found with dried bowel movement all over her bottom, unable to make it really at home. She does have an appointment at next week for a lung mass, unsure of the details on that and social media editor is trying to assess that. Ultrasound was ordered by Dr. Ricci and he will see her in consultation. I am replacing her potassium. Subjective/Events-last exam Patient is awake and alert but has desaturation with an ambulation of her oxygen. She does give a history of the last couple of months of getting dizzy when she walks and blacking out. She has no complaints about having her gallbladder out yesterday and feels a lot better. She does note that this is the second time that she has had to have an esophageal dilatation for strictures. She had had episodes of a lot of vomiting and possible aspiration and choking when she tried to swallow her pills before this admission. Review of Systems Pulmonary: Cough Objective Exam Vital Signs Vital Signs Date Time Temp Pulse Resp B/P (MAP) Pulse Ox O2 Delivery O2 Flow Rate FiO2 03/15/20 11:10 37.0 101 19 128/65 (86) 100 Room Air 03/14/20 15:30 2 Capillary Refill : Less Than 3 Seconds General Appearance: No Apparent Distress, WD/WN HEENT: Normal ENT Inspection, Other (Edentulous) Neck: Supple Respiratory: Lungs Clear, Normal Breath Sounds, No Accessory Muscle Use, No Respiratory Distress Cardiovascular: Regular Rate, Rhythm, Systolic Murmur (Over 6) Gastrointestinal: Normal Bowel Sounds, Soft Extremity: No Pedal Edema Results/Procedures Lab Laboratory Tests 03/15/20 04:50 Patient resulted labs reviewed. Assessment/Plan Assessment and Plan Assess & Plan/Chief Complaint Status post cholecystectomy day #1 Status post esophageal dilatation I believe yesterday but also previous dilatation Hypoxia with ambulation we will check a chest x-ray EKG and echocardiogram bec ause of of a systolic murmur she does have evidence of fluid overload on a previous EKG-may need to be discharged on oxygen Weight loss with lung mass-awaiting further work-up Clinical Quality Measures DVT/VTE Risk/Contraindication: Risk Factor Score Per Nursin RFS Level Per Nursing on Admit: 2=Moderate REID CARRANZA MD Mar 15, 2020 13:48
--- NOTE | 2020-03-15 15:41 | NUR ---
IRF Met with patient to discuss details specific to rehabilitation program. Patient agreeable to required therapy regimen and admission. Patient indicates she needs to get stronger to return to work. It was explained to the patient there is not currently a bed available on the ARU, with an unknown duration until next opening. This account underwriter indicates she will follow-up with SW to explore alternative options. Met with SW to discuss above information. It was determined the patient may be a SWB candidate. SW and SWB coordinator to further explore. Discontinuation of evaluation.
--- NOTE | 2020-03-15 15:51 | Diagnostic Imaging Report ---
INDICATION: Hypoxia. TECHNIQUE: Two view chest at 2:54 PM CORRELATION STUDY: 12/11/2019 FINDINGS: The heart size, mediastinal configuration and pulmonary vasculature are within normal limits. The lungs are clear with no consolidating infiltrate. There is no significant pleural effusion or pneumothorax. On the lateral projection, projecting anteriorly is a rounded fairly dense 16 mm nodule. Not appreciated on the lateral projection. There is the presence of free air below the right diaphragm. There is the presence of cholecystectomy clips consistent with recent cholecystectomy. Additionally, there are gas-filled loops of bowel noted in the upper abdomen favoring probable ileus. IMPRESSION: 1. Negative for acute abnormality of the chest. 2. Free air below the right diaphragm. This is presumably owing to a recent cholecystectomy. Correlation with surgical history. 3. Prominent gas-filled loops of bowel are noted in the upper abdomen favoring probable ileus. 4. Nodule on the lateral projection only. May very well reflect granuloma or other benign process. However, cannot be confirmed on additional imaging. Therefore short-term follow-up repeat two-view chest imaging recommended for follow-up. Report given to Dr. Patiño at 3:50 PM 03/15/2020/[email or web address] Dictated by: Dictated on workstation # [id number]
[2020-03-15] MEDS: ENOXAPARIN 30 MG/0.3 ML (LOVENOX) SYR SC SCH (20:26)
[2020-03-16] VITALS (7 sets, daily range): BP systolic 131–166; BP diastolic 58–88
[2020-03-16] MEDS: inSUlin ASPART (NovoLOG) 1 UNIT/0.01 ML (CHARGE PER UNIT) SC SCH ×4 (06:17→20:19)
--- NOTE | 2020-03-16 09:17 | Physical Therapy Daily Note ---
PT Daily Note-Current Subjective Agrees. No complaints. Wants to get up in the chair. Transfers SCALE: Activities may be completed with or without assistive devices. 2-Yorzzmjwxv-raarrye completes the activity by him/herself with no assistance from a helper. 5-Set-up or Clean-up Assistance-helper sets up or cleans up; patient completes activity. [place] assists only prior to or following the activity. 4-Supervision or Touching Assistance-helper provides verbal cues and/or touching/steadying and/or contact guard assistance as patient completes activity. Assistance may be provided throughout the activity or intermittently. 3-Partial/Moderate Assistance-helper does LESS THAN HALF the effort. [place] lifts, holds or supports trunk or limbs, but provides less than half the effort. 2-Substantial/Maximal Assistance-helper does MORE THAN HALF the effort. [place] lifts or holds trunk or limbs and provides more than half the effort. 8-Fvwpmkpky-vmvpai does ALL the effort. Patient does none of the effort to complete the activity. Or, the assistance of 2 or more helpers is required for the patient to complete the activity. If activity was not attempted, code reason: 7-Patient Refused. 9-Not Applicable-not attempted and the patient did not perform the activity before the current illness, exacerbation or injury. 10-Not Attempted due to Environmental Limitations-(lack of equipment, weather restraints, etc.). 88-Not Attempted due to Medical Conditions or Safety Concerns. Lying to Sitting/Side of Bed(Q: 4 (SBA) Sit to Stand (QC): 4 (CGA) Sit to from stand x 5 reps with SB-CGA with cues for hand placmeent. Exercises Seated Therapy Exercises: Ankle pumps, Long arc quads, Hip flexion Seated Reps: 10 Standing: Heel/toe raises, Marching, Mini squats Standing Reps: 10 Ther ex to promote LE strength and upright mobility. Treatments Functional mobility and strengthening paired together. Assessment Current Status: Good Progress Tolerated well. Cooperative and motivated. Slightly unsteady when standing, requiring CGA. PT Halfway Goals Halfway Goals PT Halfway Goals Time Frame: Mar 23, 2020 Roll Left & Right (QC): 5 Sit to Lying (QC): 5 Lying-Sitting on Side/Bed(QC): 5 Sit to Stand (QC): 5 Chair/Aqw-ha-Kggpx Xfer(QC): 5 Toilet Transfer (QC): 5 Does the Patient Walk: Yes Walk 10 feet (QC): 5 Walk 50ft with 2 Turns (QC): 5 PT Plan Problem List Problem List: Activity Tolerance, Functional Strength, Safety Treatment/Plan Treatment Plan: Continue Plan of Care Treatment Plan: Bed Mobility, Education, Functional Activity Reina, Functional Strength, Gait, Safety, Therapeutic Exercise, Transfers Treatment Duration: Mar 23, 2020 Frequency: 6 times per week Estimated Hrs Per Day: .25 hour per day Patient and/or Family Agrees t: Yes Safety Risks/Education Patient Education: Safety Issues Teaching Recipient: Patient Teaching Methods: Discussion Response to Teaching: Reinforcement Needed Discharge Recommendations Therapy Discharge Recommendati: Post Acute PT Time/GCodes Time In: 900 Time Out: 916 Total Billed Treatment Time: 16 Total Billed Treatment visit EX 16 SARIAH SANTANA PT Mar 16, 2020 09:17
[2020-03-16] MEDS: SENNA W/DOCUSATE (SENOKOT S) TABLET PO SCH ×2 (09:47→19:36)
[2020-03-16] MEDS: polyethylene glycoL POWDER 17 GM (MIRALAX) PACK PO SCH ×2 (09:47→19:36)
[2020-03-16] MEDS: PANTOPRAZOLE 40 MG (PROTONIX) VIAL IV SCH (09:48)
--- NOTE | 2020-03-16 13:54 | Progress Note - Hospitalist ---
Subjective HPI/CC On Admission Date Seen by Provider: Mar 16, 2020 Time Seen by Provider: 13:00 CC: Weakness HPI: This is a 69yoWF known to me from prior admission due to severe nausea and vomiting and hypokalemia who resided at home found with dried bowel movement all over her bottom, unable to make it really at home. She does have an appointment at next week for a lung mass, unsure of the details on that and elementary school social worker is trying to assess that. Ultrasound was ordered by Dr. Ricci and he will see her in consultation. I am replacing her potassium. Subjective/Events-last exam Patient is feeling a lot stronger today. Nursing staff noted that the wound on her foot from her previous cyst removal actually looked irritated Dr. Ruby saw the patient for the same today notes that it was healing well. She has had no problems secondary to the surgery. She did cancel her appointment with the physical chemist for a pulmonary nodule so that she could be transferred to rehab on Wednesday for further strengthening. Her nausea is much improved. She remains weak and had slipped off the stool today without injury Review of Systems Neurological: Weakness Objective Exam Vital Signs Vital Signs Date Time Temp Pulse Resp B/P (MAP) Pulse Ox O2 Delivery O2 Flow Rate FiO2 03/16/20 12:00 36.8 94 20 138/85 (102) 100 Room Air 03/14/20 15:30 2 Capillary Refill : Less Than 3 Seconds General Appearance: No Apparent Distress HEENT: Normal ENT Inspection Neck: Normal Inspection, Non Tender, Supple Respiratory: Lungs Clear, Normal Breath Sounds, No Accessory Muscle Use, No Respiratory Distress Cardiovascular: Regular Rate, Rhythm, No Gallop, No JVD, No Murmur, Normal Peripheral Pulses Gastrointestinal: Normal Bowel Sounds, Non Tender, Soft Rectal: Deferred Back: Normal Inspection Extremity: No Pedal Edema Results/Procedures Lab Patient resulted labs reviewed. Assessment/Plan Assessment and Plan Assess & Plan/Chief Complaint Status post cholecystectomy day #2 Status post esophageal dilatation I believe yesterday but also previous dilatation Hypoxia with ambulation. Dust x-ray shows a pulmonary nodule on the lateral echocardiogram shows an ejection fraction of 50% without wall motion abnormalit ies. Oxygen saturations are actually better today. Weight loss with lung nodule-awaiting further work-up as an outpatient after going to rehab Foot ulcer we will continue dressing changes daily Clinical Quality Measures DVT/VTE Risk/Contraindication: Risk Factor Score Per Nursin RFS Level Per Nursing on Admit: 2=Moderate REID CARRANZA MD Mar 16, 2020 13:54
--- NOTE | 2020-03-16 14:00 | NUR ---
DRESSING CHANGED TO RIGHT FOOT WOUND, DR SANCHEZ HERE TO EXAMINE FOOT
--- NOTE | 2020-03-16 16:33 | Progress Note - Surgery ---
Subjective Time Seen by a Provider: 11:26 Subjective/Events-last exam I was asked to look at the pt; there was a question of whether or not the foot was healing nicely or possibly infected. Pt seen and examined, she states the foot is healed. When asked she thinks it definitely looks better than it had before and denies any pain or problems with it. Review of Systems General: No Fatigue, No Malaise Pulmonary: No Dyspnea, No Cough Cardiovascular: No: Chest Pain, Palpitations Gastrointestinal: No: Nausea, Vomiting, Abdominal Pain Objective Exam Vital Signs Date Time Temp Pulse Resp B/P (MAP) Pulse Ox O2 Delivery O2 Flow Rate FiO2 03/16/20 15:43 35.7 74 16 131/58 (82) 95 Room Air 03/16/20 12:00 36.8 94 20 138/85 (102) 100 Room Air 03/16/20 08:51 Room Air 03/16/20 08:00 36.8 101 20 135/88 (104) 100 Room Air 03/16/20 04:00 36.4 96 17 137/70 (92) 99 Room Air 03/15/20 23:30 36.4 98 16 127/61 (83) 98 Room Air 03/15/20 20:43 Room Air 03/15/20 19:34 36.8 99 18 130/75 (93) 99 Room Air I & O 03/16/20 07:00 Intake Total 2770 ml Balance 2770 ml Capillary Refill : Less Than 3 Seconds General Appearance: No Apparent Distress, Chronically ill, Thin Respiratory: Lungs Clear, Normal Breath Sounds, No Accessory Muscle Use, No Respiratory Distress Cardiovascular: Regular Rate, Rhythm, No Murmur Gastrointestinal: normal bowel sounds, soft, tenderness Extremity: No Pedal Edema, Other (right foot has good granulation tissue, also appears to be some fibrinous material...this is not purulence. Foot appears to be healing nicely, no signs of erythema or infection) Neurologic/Psychiatric: Alert, Oriented x3 Results Lab Laboratory Tests 03/15/20 20:42: Glucometer 175H 03/16/20 00:30: Glucometer 122H 03/16/20 05:28: Glucometer 144H 03/16/20 12:15: Glucometer 209H Microbiology 03/13/20 MRSA Screen - Final, Complete MRSA not isolated Assessment/Plan Assessment/Plan Assessment/Plan Left foot wound I discussed with attending and nurse my assessment of the foot. I think this is healing nicely and is not infected. The granulation tissue might be hypergranulation and possibly could be helped by silver nitrate to remove the biofilm. Continue with telfa and wrap foot. Can see wound care when she goes to rehab. Clinical Quality Measures DVT/VTE Risk/Contraindication: Risk Factor Score Per Nursin RFS Level Per Nursing on Admit: 2=Moderate ALEXANDR SANCHEZ DO Mar 16, 2020 16:33
[2020-03-16] MEDS: ENOXAPARIN 30 MG/0.3 ML (LOVENOX) SYR SC SCH (20:05)
[2020-03-16] MEDS: ONDANSETRON 4 MG/2 ML (SDV) Z0FRAN IVP PRN (20:08)
[2020-03-17] VITALS (7 sets, daily range): BP systolic 111–180; BP diastolic 55–97
[2020-03-17] MEDS: inSUlin ASPART (NovoLOG) 1 UNIT/0.01 ML (CHARGE PER UNIT) SC SCH ×4 (05:38→21:28)
[2020-03-17] MEDS: polyethylene glycoL POWDER 17 GM (MIRALAX) PACK PO SCH ×2 (08:29→21:29)
[2020-03-17] MEDS: PANTOPRAZOLE 40 MG (PROTONIX) VIAL IV SCH (08:29)
[2020-03-17] MEDS: SENNA W/DOCUSATE (SENOKOT S) TABLET PO SCH ×2 (08:29→21:29)
[2020-03-17 10:35] LABS: ALANINE AMINOTRANSFERASE 17 U/L (0-55); ALBUMIN 2.4 GM/DL (3.2-4.5); ALKALINE PHOSPHATASE 89 U/L (40-136); BILIRUBIN,TOTAL 0.2 MG/DL (0.1-1.0); BUN/CREATININE RATIO 11; CALCIUM 6.8 MG/DL (8.5-10.1); CARBON DIOXIDE 21 MMOL/L (21-32); CHLORIDE 104 MMOL/L (98-107); CREATININE SERUM 0.82 MG/DL (0.60-1.30); GFR ESTIMATED > 60; GLUCOSE 249 MG/DL (70-105); POTASSIUM 3.3 MMOL/L (3.6-5.0); SODIUM 135 MMOL/L (135-145); TOTAL PROTEIN 4.3 GM/DL (6.4-8.2)
[2020-03-17 10:43] LABS: BASOPHILS % (AUTO) 0 % (0-10); EOSINOPHILS # (AUTO) 0.1 10^3/uL (0.0-0.3); EOSINOPHILS % (AUTO) 1 % (0-10); HEMATOCRIT 30 % (35-52); HEMOGLOBIN 9.4 g/dL (11.5-16.0); LYMPHOCYTES # (AUTO) 1.3 10^3/uL (1.0-4.0); LYMPHOCYTES % (AUTO) 19 % (12-44); MEAN CORPUSCULAR HEMOGLOBIN 28 pg (25-34); MEAN CORPUSCULAR HGB CONC 31 g/dL (32-36); MEAN CORPUSCULAR VOLUME 89 fL (80-99); MEAN PLATELET VOLUME 8.9 fL (9.0-12.2); MONOCYTES # (AUTO) 0.7 10^3/uL (0.0-1.0); MONOCYTES % (AUTO) 9 % (0-12); NEUTROPHILS % (AUTO) 70 % (42-75); PLATELET COUNT 309 10^3/uL (130-400); WHITE BLOOD COUNT 7.1 10^3/uL (4.3-11.0)
--- NOTE | 2020-03-17 12:05 | Progress Note - Hospitalist ---
Subjective HPI/CC On Admission Date Seen by Provider: Mar 17, 2020 Time Seen by Provider: 10:30 CC: Weakness HPI: This is a 69yoWF known to me from prior admission due to severe nausea and vomiting and hypokalemia who resided at home found with dried bowel movement all over her bottom, unable to make it really at home. She does have an appointment at next week for a lung mass, unsure of the details on that and social work administrator is trying to assess that. Ultrasound was ordered by Dr. Ricci and he will see her in consultation. I am replacing her potassium. Subjective/Events-last exam Patient currently is very roller maker is eating better ambulating without a great deal of difficulty. Is looking forward to going to inpatient rehab on Wednesday. Review of Systems Neurological: Weakness Objective Exam Vital Signs Vital Signs Date Time Temp Pulse Resp B/P (MAP) Pulse Ox O2 Delivery O2 Flow Rate FiO2 03/17/20 08:00 35.9 103 20 180/97 (124) 98 Room Air 03/14/20 15:30 2 Capillary Refill : Less Than 3 Seconds General Appearance: No Apparent Distress, WD/WN HEENT: Normal ENT Inspection Neck: Non Tender, Supple Respiratory: Chest Non Tender, Lungs Clear, Normal Breath Sounds, No Accessory Muscle Use, No Respiratory Distress Cardiovascular: Regular Rate, Rhythm, No Edema, No Gallop, No JVD, No Murmur, Normal Peripheral Pulses Gastrointestinal: Normal Bowel Sounds, Soft, Other Rectal: Deferred Back: Normal Inspection Extremity: No Pedal Edema Neurologic/Psychiatric: Alert, Oriented x3, No Motor/Sensory Deficits, Normal Mood/Affect Skin: Normal Color, Warm/Dry Results/Procedures Lab Laboratory Tests 03/17/20 10:12 Patient resulted labs reviewed. Assessment/Plan Assessment and Plan Assess & Plan/Chief Complaint Status post cholecystectomy day #3-doing well Status post esophageal dilatation eating better Hypoxia with ambulation. Dust x-ray shows a pulmonary nodule on the lateral echocardiogram shows an ejection fraction of 50% without wall motion abnormalities. Oxygen saturations are actually better today. Weight loss with lung nodule-awaiting further work-up as an outpatient after going to rehab Foot ulcer we will continue dressing changes daily Salbador for transfer to inpatient rehab on Wednesday Clinical Quality Measures DVT/VTE Risk/Contraindication: Risk Factor Score Per Nursin RFS Level Per Nursing on Admit: 2=Moderate SANDNESS,REID M MD Mar 17, 2020 12:05
[2020-03-17] MEDS: ENOXAPARIN 30 MG/0.3 ML (LOVENOX) SYR SC SCH (21:28)
[2020-03-18 04:57] VITALS: BP 143/79
[2020-03-18] MEDS: inSUlin ASPART (NovoLOG) 1 UNIT/0.01 ML (CHARGE PER UNIT) SC SCH ×4 (05:38→20:51)
[2020-03-18 08:00] VITALS: BP 177/86
[2020-03-18] MEDS: SENNA W/DOCUSATE (SENOKOT S) TABLET PO SCH ×2 (08:15→20:52)
[2020-03-18] MEDS: polyethylene glycoL POWDER 17 GM (MIRALAX) PACK PO SCH ×2 (08:15→20:52)
[2020-03-18] MEDS: PANTOPRAZOLE 40 MG (PROTONIX) VIAL IV SCH (08:22)
--- NOTE | 2020-03-18 10:10 | Physical Therapy Daily Note ---
PT Daily Note-Current Subjective Patient agrees to PT. Reports she has been up with nursing ambulating in hallway over the weekend. Mental Status Patient Orientation: Normal For Age Transfers SCALE: Activities may be completed with or without assistive devices. 2-Besrthhnbp-hhsiozw completes the activity by him/herself with no assistance from a helper. 5-Set-up or Clean-up Assistance-helper sets up or cleans up; patient completes activity. [place] assists only prior to or following the activity. 4-Supervision or Touching Assistance-helper provides verbal cues and/or touching/steadying and/or contact guard assistance as patient completes activity. Assistance may be provided throughout the activity or intermittently. 3-Partial/Moderate Assistance-helper does LESS THAN HALF the effort. [place] lifts, holds or supports trunk or limbs, but provides less than half the effort. 2-Substantial/Maximal Assistance-helper does MORE THAN HALF the effort. [place] lifts or holds trunk or limbs and provides more than half the effort. 7-Zksnbarlq-khxajz does ALL the effort. Patient does none of the effort to complete the activity. Or, the assistance of 2 or more helpers is required for the patient to complete the activity. If activity was not attempted, code reason: 7-Patient Refused. 9-Not Applicable-not attempted and the patient did not perform the activity before the current illness, exacerbation or injury. 10-Not Attempted due to Environmental Limitations-(lack of equipment, weather restraints, etc.). 88-Not Attempted due to Medical Conditions or Safety Concerns. Lying to Sitting/Side of Bed(Q: 6 Sit to Stand (QC): 5 Chair/Mxy-tb-Umkql Xfer(QC): 5 Gait Training Does the Patient Walk?: Yes Distance: 300' Walk 10 feet (QC): 5 Walk 50 ft with 2 Turns(QC): 5 Walk 150 ft (QC): 5 Gait Assistive Device: FWW safe and functional with no deviation with SAO2 maintaining 99% RA with activity Exercises Supine Ex: Ankle pumps, Quad Set, Heel Slides, Straight leg raise Supine Reps: 12 Seated Therapy Exercises: Ankle pumps, Long arc quads, Hip flexion Seated Reps: 12 Assessment Patient much improved with gross motor skills and strength. Patient is motivated with progress. PT Patient Care Technician Instructor Goals Patient Care Technician Instructor Goals PT Senior Living Goals Time Frame: Mar 23, 2020 Roll Left & Right (QC): 5 Sit to Lying (QC): 5 Lying-Sitting on Side/Bed(QC): 5 Sit to Stand (QC): 5 Chair/Tvu-oj-Lfbve Xfer(QC): 5 Toilet Transfer (QC): 5 Does the Patient Walk: Yes Walk 10 feet (QC): 5 Walk 50ft with 2 Turns (QC): 5 PT Plan Treatment/Plan Treatment Plan: Continue Plan of Care Treatment Plan: Bed Mobility, Education, Functional Activity Reina, Functional Strength, Gait, Safety, Therapeutic Exercise, Transfers Treatment Duration: Mar 23, 2020 Frequency: 6 times per week Estimated Hrs Per Day: .25 hour per day Patient and/or Family Agrees t: Yes Time/GCodes Time In: 834 Time Out: 857 Total Billed Treatment Time: 23 Total Billed Treatment 1 visit EX 10 min GT 13 min BRICE LOO PT Mar 18, 2020 10:10
--- NOTE | 2020-03-18 11:45 | Occupational Ther Daily Note ---
OT Current Status-Daily Note Subjective Pt in recliner upon entry. States fatigued and desires nap. Pt agrees to OT tx, denying ex but agreeing to sponge bath. Pt does not c/o pain through session, though one instance of dizziness. ADL-Treatment Therapy Code Descriptions/Definitions Functional [place] Measure: 0=Not Assessed/NA 4=Minimal Assistance 1=Total Assistance 5=Supervision or Setup 2=Maximal Assistance 6=Modified [place] 3=Moderate Assistance 7=Complete IndependenceSCALE: Activities may be completed with or without assistive devices. 5-Hqqbtndyye-xzwqpoy completes the activity by him/herself with no assistance from a helper. 5-Set-up or Clean-up Assistance-helper sets up or cleans up; patient completes activity. [employer] assists only prior to or following the activity. 4-Supervision or Touching Assistance-helper provides verbal cues and/or touch ing/steadying and/or contact guard assistance as patient completes activity. Assistance may be provided throughout the activity or intermittently. 3-Partial/Moderate Assistance-helper does LESS THAN HALF the effort. [employer] lifts, holds or supports trunk or limbs, but provides less than half the effort. 2-Substantial/Maximal Assistance-helper does MORE THAN HALF the effort. [employer] lifts or holds trunk or limbs and provides more than half the effort. 2-Xfmllmhuz-mjjoiy does ALL the effort. Patient does none of the effort to complete the activity. Or, the assistance of 2 or more helpers is required for the patient to complete the activity. If activity was not attempted, code reason: 7-Patient Refused. 9-Not Applicable-not attempted and the patient did not perform the activity before the current illness, exacerbation or injury. 10-Not Attempted due to Environmental Limitations-(lack of equipment, weather restraints, etc.). 88-Not Attempted due to Medical Conditions or Safety Concerns. Eating (QC): 7 (denies water when dizzy) Bathing Location: L Arm, R Arm, L Upper Leg, R Upper Leg, L Lower Leg (including foot), R Lower Leg (including foot), Chest, Abdomen, Buttocks, Perineal Area Shower/Bathe Self (QC): 4 (s/u upper body. SBA-CGA in stance for bottom/ phillip care.) Upper Body Dressing (QC): 5 (s/u gown.) Lower Body Dressing (QC): 4 (SBA donning in chair, SBA-CGA in stance to hike) On/Off Footwear: 4 (SBA sock doff/ donning. ) Toileting Hygiene (QC): 4 (SBA in stance.) Other Treatment Pt agrees to sponge bath. Reclined in chair, up to sitting pt c/o dizziness. Denies water. Completes UB in recliner. Sit to stand with CGA to stance and pulls LE dressings off with fair balance. Completes hygiene in stance with SBA. Pt returns to sit to complete LB dressing/ footwear. Sit to stand SBA and pulls over hips. All needs met, call light in reach, pt left in recliner with LEs up and blanket donned. Education OT Patient Education: Correct positioning, Progress toward Goal/Update tx plan, Safety issues, Transfer techniques Teaching Recipient: Patient Teaching Methods: Discussion Response to Teaching: Verbalize Understanding, Return Demonstration OT Interior Design Teacher Goals [facility] Goals Time Frame: Mar 21, 2020 Eating (QC): 6 Oral Hygiene (QC): 6 Toileting Hygiene (QC): 4 Shower/Bathe Self (QC): 4 Upper Body Dressing (QC): 5 Lower Body Dressing (QC): 4 On/Off Footwear (QC): 6 Additional Goals: 1-Demonstrate ADL Tasks, 2-Verbalize Understanding, 3- ImproveStrength/Reina 1=Demonstrate adherence to instructed precautions during ADL tasks. 2=Patient will verbalize/demonstrate understanding of assistive devices/modifications for ADL. 3=Patient will improve strength/tolerance for activity to enable patient to perform ADL's. OT Education/Plan Problem List/Assessment Assessment: Decreased Activ Tolerance, Decreased UE Strength, Dependent Transfers, Impaired Funct Balance, Impaired I ADL's, Impaired Self-Care Skills Discharge Recommendations Plan/Recommendations: Continue POC Therapy Discharge Recommendati: Assisted Living, Post Acute OT Treatment Plan/Plan of Care Treatment,Training & Education: Yes Patient would benefit from OT for education, treatment and training to promote independence in ADL's, mobility, safety and/or upper extremity function for ADL's. Plan of Care: ADL Retraining, Functional Mobility, UE Funct Exercise/Act, UE Neuromus Re-Ed/Coord Treatment Duration: Mar 21, 2020 Frequency: 5 times per week Estimated Hrs Per Day: .25 hour per day Agreement: Yes Rehab Potential: Fair Time/GCodes Start Time: 09:25 Stop Time: 09:35 Total Time Billed (hr/min): 10 Billed Treatment Time 1, ADL (10) LIZZY DAVIS OTR Mar 18, 2020 11:45
--- NOTE | 2020-03-18 12:42 | NUR ---
IRF SW notified this board writer that patient would not be admitting the SWB program and questioning the likelihood of admitting to the ARU. Chart review complete and shows patient ambulating (300ft, FWW), transferring, qnp-yc-mmrey, and completing UE dressing with setup, as well as completing shower/bathe, LE dress, on/off footwear and toilet hygiene with supervision; therefore, patient is considered 'too functional' for rehabilitation program. SW notified of above findings.
--- NOTE | 2020-03-18 13:48 | Discharge Summary ---
Discharge Summary Instructions for Patient Via [facility], Assessment/Instructions Follow up with Billie You APRN on 03/20 at 9 am. Physician to follow Patient: Billie Loco APRN Discharge Diet for Home: ADA Diet Hospital Course Date of Admission: Mar 12, 2020 at 20:33 Admission Diagnosis : Weight loss Weakness Debility Malnutrition DMII HTN Left heel wound Family Physician/Provider: Violette,Local Physician Date of Discharge: 03/18/20 Discharge Diagnosis: Status post cholecystectomy for cholelithiasis Pulmonary nodule- needs follow up-possibly has LANDEN sultana scheduled, but needs verified. Weight loss with lung nodule-awaiting further work-up as an outpatient Foot ulcer- continue dressing changes daily, home health with wound care Debility- doing well with PT/OT, still needing some assistance at d/c, discharged with home health services Hospital Course: See discharge diagnoses Labs and Pending Lab Test: Laboratory Tests 03/17/20 15:26: Glucometer 114H 03/17/20 20:17: Glucometer 185H 03/18/20 00:12: Glucometer 73 03/18/20 05:36: Glucometer 142H 03/18/20 11:13: Glucometer 226H Microbiology 03/13/20 MRSA Screen - Final, Complete MRSA not isolated Home Meds Active Hydrocodone-Acetamin 7.5-325 (Hydrocodone/Acetaminophen) 1 Each Tablet 1 Each PO Q4H Reported Centrum Chewables Adults Tab (Multivit-Min/Iron/Folic/Vit K1) 1 Each Tab.chew 1 Each PO DAILY Pantoprazole Sodium 40 Mg Tablet.dr 40 Mg PO DAILY Metoprolol Tartrate 25 Mg Tablet 25 Mg PO BID LAST FILLED 12-11-2019 #60/30 DAY SUPPLY Basaglar Kwikpen U-100 (Insulin Glargine,Hum.rec.anlog) 100 Unit/1 Ml Insuln.pen 5 Units SC HS Amlodipine Besylate 10 Mg Tablet 10 Mg PO DAILY LAST FILLED 01-10-2020 #30/30 DAY SUPPLY Metformin HCl 500 Mg Tablet 500 Mg PO DAILY LAST FILLED 01-10-2020 #30/30 DAY SUPPLY Ondansetron Odt (Ondansetron) 4 Mg Tab.rapdis 4 Mg PO Q6H PRN Consulations General Surgery Patient Allergies: Coded Allergies: No Known Drug Allergies (Unverified , 12/03/19) Home Health Need/Face to Face Date of Face to Face: Mar 18, 2020 Clinical Findings: Generalized weakness and fatigue, Non-healing wound I have seen Pt teuy-su-iear: Yes Discharged To: Home Diagnosis/Conditions: s/p cholecystectomy for cholelithiasis Left heel wound after cyst removal Lung nodule Weight loss Weakness/debility DMII HTN Patient is Homebound due to: Muscle weakness Homebound Status Due to the above stated illness, injury or surgical procedure (medical condition or diagnosis) and associated clinical findings, the patient is homebound because of his/her inability to leave home except with aid of a supportive device and/or person AND leaving the home requires a considerable and taxing effort or is medically contraindicated. Pt req the following assistanc: Aid of another person Home Health Nursing Orders Home Health Services Order: [employer] Supervisor-Evaluate & Treat, Physical Therapy-Evaluate & Treat, Wound Care-Eval/Treat Certify Stmt I certify that this patient is under my care and that I, a nurse practitioner or a physician; a delivery driver assistant working with me, had a face to face encounter that - meets the physician face to face encounter requirements with this patient as dated. Discharge Physical Exam General: Alert, No Acute Distress Lungs: Clear to Auscultation, Normal Air Movement Heart: Regular Rate, No Murmurs Abdomen: Normal Bowel Sounds, Other (laparscopic incisions healing well with no drainage) Neuro: Normal Speech Psych/Mental Status: Mental Status NL CYNTHIA BOWIE MD Mar 18, 2020 13:45
[2020-03-18 15:46] VITALS: BP 147/77
--- NOTE | 2020-03-18 16:33 | NUR ---
Visited with patient about voiced concerns of going home and being alone at night. I then called and talked with the doctor about patient's voiced concerns. Doctor would like to hold the discharge for tonight and visit about going to a skilled facility tomorrow vs. other care plans the patient et family would like to discuss. In visiting with the patient she requested that I also talk with her sister. I called and talked with her sister Myrna about intended discharge to home with home health care. She reports that her sister has fallen at home and has lost her confidence to get up by herself. She reports that she checks on her sister 3x's a day and that since falling her sister waits on her to get up to go to the bathroom and other cares d/t being afraid of falling. We talked about what [facility] can offer, private care givers, et also swing bed at [facility] in [place], senior care home [facility]. They would like to have a referral sent to [facility] Swing Bed in [place] and if they can't accept then they would be willing to go to [facility] for short term skilled therapies. Referral faxed to both places and messages left for Aidan Pemberton RN at [facility] and talked with MAG Clements at [facility]. Will f/u with Dr. mayfield patient/family tomorrow.
[2020-03-18 19:31] VITALS: BP 133/74
[2020-03-18] MEDS: ENOXAPARIN 30 MG/0.3 ML (LOVENOX) SYR SC SCH (20:51)
[2020-03-19 00:24] VITALS: BP 105/66
[2020-03-19 04:09] VITALS: BP 137/78
[2020-03-19] MEDS: inSUlin ASPART (NovoLOG) 1 UNIT/0.01 ML (CHARGE PER UNIT) SC SCH ×2 (05:41→11:20)
[2020-03-19 07:29] LABS: BASOPHILS % (AUTO) 0 % (0-10); EOSINOPHILS # (AUTO) 0.1 10^3/uL (0.0-0.3); EOSINOPHILS % (AUTO) 1 % (0-10); HEMATOCRIT 30 % (35-52); HEMOGLOBIN 9.3 g/dL (11.5-16.0); LYMPHOCYTES % (AUTO) 34 % (12-44); MEAN CORPUSCULAR HEMOGLOBIN 27 pg (25-34); MEAN CORPUSCULAR HGB CONC 31 g/dL (32-36); MEAN CORPUSCULAR VOLUME 85 fL (80-99); MEAN PLATELET VOLUME 8.6 fL (9.0-12.2); MONOCYTES # (AUTO) 0.7 10^3/uL (0.0-1.0); MONOCYTES % (AUTO) 11 % (0-12); NEUTROPHILS % (AUTO) 52 % (42-75); PLATELET COUNT 360 10^3/uL (130-400); WHITE BLOOD COUNT 5.8 10^3/uL (4.3-11.0)
[2020-03-19 07:41] LABS: CHLORIDE 102 MMOL/L (98-107); POTASSIUM 3.1 MMOL/L (3.6-5.0); SODIUM 138 MMOL/L (135-145)
[2020-03-19 07:42] LABS: CALCIUM 6.7 MG/DL (8.5-10.1)
[2020-03-19 07:43] LABS: GLUCOSE 111 MG/DL (70-105)
[2020-03-19 07:44] LABS: CARBON DIOXIDE 24 MMOL/L (21-32)
[2020-03-19 07:47] LABS: CREATININE SERUM 0.69 MG/DL (0.60-1.30); GFR ESTIMATED > 60
[2020-03-19 07:48] LABS: BUN/CREATININE RATIO 10
[2020-03-19 08:00] VITALS: BP 162/108
[2020-03-19] MEDS: SENNA W/DOCUSATE (SENOKOT S) TABLET PO SCH (08:00)
[2020-03-19] MEDS: polyethylene glycoL POWDER 17 GM (MIRALAX) PACK PO SCH (08:00)
[2020-03-19] MEDS ORDERED: PANTOPRAZOLE 40 MG (PROTONIX) TAB PO SCH (09:00)
--- NOTE | 2020-03-19 09:39 | Occupational Ther Daily Note ---
OT Current Status-Daily Note Subjective Pt in chair upon entry. AxO. Pt agrees to tx, though denies ADLs. Pt is already dressed, stating she dressed herself and is d/c'ing to another facility today. Pt denies pain, though was nauseous this am. Mental Status/Objective Patient Orientation: Person, Place, Situation ADL-Treatment Therapy Code Descriptions/Definitions Functional [place] Measure: 0=Not Assessed/NA 4=Minimal Assistance 1=Total Assistance 5=Supervision or Setup 2=Maximal Assistance 6=Modified [place] 3=Moderate Assistance 7=Complete IndependenceSCALE: Activities may be completed with or without assistive devices. 5-Mrwzxxsmxn-zxswflw completes the activity by him/herself with no assistance from a helper. 5-Set-up or Clean-up Assistance-helper sets up or cleans up; patient completes activity. [place] assists only prior to or following the activity. 4-Supervision or Touching Assistance-helper provides verbal cues and/or touching/steadying and/or contact guard assistance as patient completes activity. Assistance may be provided throughout the activity or intermittently. 3-Partial/Moderate Assistance-helper does LESS THAN HALF the effort. [place] lifts, holds or supports trunk or limbs, but provides less than half the effort. 2-Substantial/Maximal Assistance-helper does MORE THAN HALF the effort. [place] lifts or holds trunk or limbs and provides more than half the effort. 4-Eisrcuxcv-rfdggx does ALL the effort. Patient does none of the effort to complete the activity. Or, the assistance of 2 or more helpers is required for the patient to complete the activity. If activity was not attempted, code reason: 7-Patient Refused. 9-Not Applicable-not attempted and the patient did not perform the activity before the current illness, exacerbation or injury. 10-Not Attempted due to Environmental Limitations-(lack of equipment, weather restraints, etc.). 88-Not Attempted due to Medical Conditions or Safety Concerns. Eating (QC): 6 Oral Hygiene (QC): 7 (denies, stating, "I have no teeth.") Shower/Bathe Self (QC): 7 Upper Body Dressing (QC): 6 Lower Body Dressing (QC): 6 On/Off Footwear: 6 Toileting Hygiene (QC): 7 Other Treatment Pt completes sit to stand with SBA. Completes balance task with hands from walker/ reaching. No LOB, though sudden c/o dizziness and returns to sit safely. Pt rests and returns to stance, completing additional reaching/ lateral and front leans to address fx activity balance in stance. Pt again c/o dizziness and returns to sit. Pt completes 3 exercises (1 set of 10) bilaterally with OT's resistance: shoulder forward flexion, back flies, bicep curls. Pt denies any additional needs, call light in reach, LEs elevated with blanket donned. Education OT Patient Education: Correct positioning, Exercise program, Safety issues Teaching Recipient: Patient Teaching Methods: Demonstration, Discussion Response to Teaching: Verbalize Understanding, Return Demonstration OT Senior Living Goals Tobacco Stemmer Goals Time Frame: Mar 21, 2020 Eating (QC): 6 Oral Hygiene (QC): 6 Toileting Hygiene (QC): 4 Shower/Bathe Self (QC): 4 Upper Body Dressing (QC): 5 Lower Body Dressing (QC): 4 On/Off Footwear (QC): 6 Additional Goals: 1-Demonstrate ADL Tasks, 2-Verbalize Understanding, 3- ImproveStrength/Reina 1=Demonstrate adherence to instructed precautions during ADL tasks. 2=Patient will verbalize/demonstrate understanding of assistive devices/modif ications for ADL. 3=Patient will improve strength/tolerance for activity to enable patient to perform ADL's. OT Education/Plan Problem List/Assessment Assessment: Decreased Activ Tolerance, Decreased UE Strength, Impaired Funct Balance, Impaired I ADL's, Impaired Self-Care Skills Discharge Recommendations Plan/Recommendations: Continue POC Therapy Discharge Recommendati: 24 Hour Supervision, Assisted Living, Post Acute OT Treatment Plan/Plan of Care Treatment,Training & Education: Yes Patient would benefit from OT for education, treatment and training to promote independence in ADL's, mobility, safety and/or upper extremity function for ADL's. Plan of Care: ADL Retraining, Functional Mobility, UE Funct Exercise/Act, UE Neuromus Re-Ed/Coord Treatment Duration: Mar 21, 2020 Frequency: 5 times per week Estimated Hrs Per Day: .25 hour per day Agreement: Yes Rehab Potential: Fair Time/GCodes Start Time: 09:10 Stop Time: 09:18 Total Time Billed (hr/min): 8 Billed Treatment Time 1, EX (8) LIZZY DAVIS OTR Mar 19, 2020 09:39
--- NOTE | 2020-03-19 09:41 | Physical Therapy Daily Note ---
PT Daily Note-Current Subjective Patient is very agreeable to participate with therapy. Mental Status Patient Orientation: Normal For Age Transfers SCALE: Activities may be completed with or without assistive devices. 9-Aheoikkvti-rtfytrp completes the activity by him/herself with no assistance from a helper. 5-Set-up or Clean-up Assistance-helper sets up or cleans up; patient completes activity. [place] assists only prior to or following the activity. 4-Supervision or Touching Assistance-helper provides verbal cues and/or touch ing/steadying and/or contact guard assistance as patient completes activity. Assistance may be provided throughout the activity or intermittently. 3-Partial/Moderate Assistance-helper does LESS THAN HALF the effort. [place] lifts, holds or supports trunk or limbs, but provides less than half the effort. 2-Substantial/Maximal Assistance-helper does MORE THAN HALF the effort. [place] lifts or holds trunk or limbs and provides more than half the effort. 5-Fsosinjby-jhvjfa does ALL the effort. Patient does none of the effort to complete the activity. Or, the assistance of 2 or more helpers is required for the patient to complete the activity. If activity was not attempted, code reason: 7-Patient Refused. 9-Not Applicable-not attempted and the patient did not perform the activity before the current illness, exacerbation or injury. 10-Not Attempted due to Environmental Limitations-(lack of equipment, weather restraints, etc.). 88-Not Attempted due to Medical Conditions or Safety Concerns. Lying to Sitting/Side of Bed(Q: 6 Sit to Stand (QC): 4 Chair/Jfy-iv-Qiqhk Xfer(QC): 4 Toilet Transfer (QC): 4 Gait Training Does the Patient Walk?: Yes Distance: 275' Walk 10 feet (QC): 4 Walk 50 ft with 2 Turns(QC): 4 Walk 150 ft (QC): 4 Gait Assistive Device: FWW Patient required seated recovery period after toileting prior to ambulation in hallway. Exercises Supine Ex: Ankle pumps, Quad Set, Heel Slides, Straight leg raise Supine Reps: 12 Seated Therapy Exercises: Ankle pumps, Long arc quads, Hip flexion Seated Reps: 12 Assessment Patient tolerated treatment well and is up in recliner with needs met. Patient is SBA for safety on this date due to fatigue. PT to increase activity as tolerated by patient. PT Jail Goals Machine Preservative Filler Goals PT Machine Preservative Filler Goals Time Frame: Mar 23, 2020 Roll Left & Right (QC): 5 Sit to Lying (QC): 5 Lying-Sitting on Side/Bed(QC): 5 Sit to Stand (QC): 5 Chair/Ecu-he-Wqpkq Xfer(QC): 5 Toilet Transfer (QC): 5 Does the Patient Walk: Yes Walk 10 feet (QC): 5 Walk 50ft with 2 Turns (QC): 5 PT Plan Treatment/Plan Treatment Plan: Continue Plan of Care Treatment Plan: Bed Mobility, Education, Functional Activity Reina, Functional Strength, Gait, Safety, Therapeutic Exercise, Transfers Treatment Duration: Mar 23, 2020 Frequency: 6 times per week Estimated Hrs Per Day: .25 hour per day Patient and/or Family Agrees t: Yes Time/GCodes Time In: 834 Time Out: 857 Total Billed Treatment Time: 23 Total Billed Treatment 1 visit EX 12 min FA 11 min BRICE LOO PT Mar 19, 2020 09:41
--- NOTE | 2020-03-19 09:42 | NUR ---
SAEED FINALIZED DISCHARGE PLAN: Patient has been accepted to Swing Bed at [facility] in [place], [place]. Updated the patient with the news and she reports that she will have a ride that will transport her as soon as we give her the go to call. [facility] has asked that we call them with an estimated time of arrival once doc to doc report has been given and nurse to nurse report has been given. Updated doctor and primary care nurse with this information and contact numbers. Addendum: 03/19/20 at 1118 by STACI AVINA RN [facility] staff notified at this time that the patient has just left our facility. Doc to doc has been completed and nurse report has been given.
--- NOTE | 2020-03-19 11:29 | Discharge Summary ---
Discharge Summary Hospital Course Problems/Diagnosis: (1) Gall stones Assessment & Plan: With recurrent pain and vomiting, had cholecystectomy inpatient and tolerating diet post-op. (2) Intractable abdominal pain Status: Resolved Resolution Date/Time: 03/15/20 @ 11:26 (3) Weight loss Status: Acute Assessment & Plan: Cholecystectomy done, tolerating diet better, needs continued follow-up. (4) T2DM (type 2 diabetes mellitus) Status: Chronic Qualifiers: (5) Lung nodule Assessment & Plan: Noted but incompletely evaluated on CXR, needs follow up imaging and evaluation. Hospital Course Date of Admission: Mar 12, 2020 at 20:33 Admission Diagnosis : Family Physician/Provider: VioletteLocal Physician Date of Discharge: 03/19/20 Discharge Diagnosis: See problem list Hospital Course: See problem list, discharged to [facility] in [place] for further strengthening Labs and Pending Lab Test: Laboratory Tests 03/18/20 15:45: Glucometer 113H 03/18/20 16:10: Coronavirus 2019 (DIVYA) Negative 03/18/20 20:41: Glucometer 185H 03/19/20 05:40: Glucometer 115H 03/19/20 07:20: White Blood Count 5.8, Red Blood Count 3.48L, Hemoglobin 9.3L, Hematocrit 30L, Mean Corpuscular Volume 85, Mean Corpuscular Hemoglobin 27, Mean Corpuscular Hemoglobin Concent 31L, Red Cell Distribution Width 18.1H, Platelet Count 360, Mean Platelet Volume 8.6L, Immature Granulocyte % (Auto) 1, Neutrophils (%) (Auto) 52, Lymphocytes (%) (Auto) 34, Monocytes (%) (Auto) 11, Eosinophils (%) (Auto) 1, Basophils (%) (Auto) 0, Neutrophils # (Auto) 3.0, Lymphocytes # (Auto) 2.0, Monocytes # (Auto) 0.7, Eosinophils # (Auto) 0.1, Basophils # (Auto) 0.0, Immature Granulocyte # (Auto) 0.1, Sodium Level 138, Potassium Level 3.1L, Chloride Level 102, Carbon Dioxide Level 24, Anion Gap 12, Blood Urea Nitrogen 7, Creatinine 0.69, Estimat Glomerular Filtration Rate > 60, BUN/Creatinine Ratio 10, Glucose Level 111H, Calcium Level 6.7L Microbiology 12/2/20 MRSA Screen - Final, Complete MRSA not isolated Home Meds Active Hydrocodone-Acetamin 7.5-325 (Hydrocodone/Acetaminophen) 1 Each Tablet 1 Each PO Q4H Reported Centrum Chewables Adults Tab (Multivit-Min/Iron/Folic/Vit K1) 1 Each Tab.chew 1 Each PO DAILY Pantoprazole Sodium 40 Mg Tablet.dr 40 Mg PO DAILY Metoprolol Tartrate 25 Mg Tablet 25 Mg PO BID LAST FILLED 12-11-2019 #60/30 DAY SUPPLY Basaglar Kwikpen U-100 (Insulin Glargine,Hum.rec.anlog) 100 Unit/1 Ml Insuln.pen 5 Units SC HS Amlodipine Besylate 10 Mg Tablet 10 Mg PO DAILY LAST FILLED 01-10-2020 #30/30 DAY SUPPLY Metformin HCl 500 Mg Tablet 500 Mg PO DAILY LAST FILLED 01-10-2020 #30/30 DAY SUPPLY Ondansetron Odt (Ondansetron) 4 Mg Tab.rapdis 4 Mg PO Q6H PRN Assessment/Pt DC Instructions Discharged to swing bed. Discharge Diet: ADA Diet Orders-Post D/C & Referrals Pneu Vac Indicated: Yes Discharge Physical Examination Allergies: Coded Allergies: No Known Drug Allergies (Unverified , 12/03/19) General Appearance: No Apparent Distress, WD/WN Respiratory: Lungs Clear, Normal Breath Sounds Cardiovascular: Regular Rate, Rhythm, No Murmur Gastrointestinal: Normal Bowel Sounds, Non Tender Extremity: No Pedal Edema Neurologic/Psychiatric: Alert Clinical Quality Measures DVT/VTE Risk/Contraindication: Risk Factor Score Per Nursin RFS Level Per Nursing on Admit: 2=Moderate CYNTHIA BOWIE MD Mar 19, 2020 11:29
--- NOTE | 2020-03-19 12:08 | Physician Query Clarification ---
"Physician Query-General Query to Physician: The medical record reflects the following clinical scenario: History/Risk factors: Severe nausea and vomiting, Lung mass, Gallstones requiring Lap Mandy Clinical Findings: Weakness, Malaise, Cachexia, BMI 17, Weight loss of 35 lbs over last few months, Albumin 2.4 Treatment: Lap mandy, dietary monitoring, advancing diet as tolerated Question: What condition best reflects the above clinical scenario? Please document response in the Progress notes or Discharge Summary. 1. Severe Protein/Calorie Malnutrition with Cachexia 2. Weight Loss/Cachexia (as currently documented) 3. Other , with explanation of the clinical findings 4. Clinically undetermined, no explanation for the clinical findings Please remember a lack of response to the above will prompt a phone page by CDI/coding staff In responding to this query, please exercise your independent professional judgment. The purpose of this communication is to more accurately reflect the complexity of your patients condition. The fact that a question is asked does not imply that any particular answer is desired or expected. Thank you for timely response to this clarification. Harmony Obrien, MSN, RN RN Specialist-Clinical Doc Improvement CD -Health Info Mgmt Operations [address] [facility] t: [phone] | f: [phone] If you are unable to reach me at my extension, I may be working from home. Please contact me at [phone] PHYSICIAN RESPONSE: Based on the clinical findings in the record, please respond to the query above on this document as an addendum. Physician Response: Physician Response 1 If you have questions please contact: Physician'S Assistant: Ext: Thank you for your time and cooperation. Clinical Computer Networking Instructor/Physician'S Assistant This is a permanent part of the medical record HARMONY OBRIEN Mar 19, 2020 12:08 CYNTHIA BOWIE MD Mar 19, 2020 20:46"
== END 2020-03-19 11:53 | disposition swing bed (61) ==
LOC: EDUNIT# 17:40 → ER 17:41 → 4TH 20:33 → UNDOADMIN 20:33 → SDC 21:45 → 4TH 21:45 → UNDODISIN 03-19 11:53 → SDC 03-19 11:53
PROVIDERS: ATTEND Internal Medicine
DX: K80.10 Calculus of gallbladder with chronic cholecystitis without obstruction (principal); I10 Essential (primary) hypertension; E78.00 Pure hypercholesterolemia, unspecified; E11.621 Type 2 diabetes mellitus with foot ulcer; L97.509 Non-pressure chronic ulcer of other part of unspecified foot with unspecified severity; E87.6 Hypokalemia; N17.9 Acute kidney failure, unspecified; K21.9 Gastro-esophageal reflux disease without esophagitis; R91.1 Solitary pulmonary nodule; R63.4 Abnormal weight loss; Z79.899 Other long term (current) drug therapy; Z79.4 Long term (current) use of insulin
CPT/HCPCS: 47562; 71046; 74176; 76705; 80048; 80053 ×5; 81000; 82962 ×8; 83690; 85025 ×5; 85027; 87081; 88304; 93005; 93306; 96374; 96375; 97110 ×5; 97116; 97162; 97165; 97530 ×2; 97535 ×2; 99283; U0002 ×2; 36415; 87635; G0378

== ENCOUNTER 2020-10-22 05:49 | Outpatient (CLI) | payer MEDICARE, OTHER ==
[~2020-10-22] VITALS: Ht 157.5 cm; Wt 54.5 kg
[~2020-10-22 05:49] MED LIST changes: +HYDR-3817 PO; +MULT-1112 PO; +PANT40TA52 PO
[2020-10-22] MEDS ORDERED: INSU100I10 SQ (15:37)
[2020-10-22] MEDS ORDERED: METF-865 PO (15:37)
[2020-10-22] MEDS ORDERED: GABA300C PO (15:37)
[2020-10-24] MEDS ORDERED: MELO7.5T46 PO (08:21)
== END 2020-10-22 15:40 | disposition home or self-care (01) ==
LOC: PREOP 05:49
PROVIDERS: ATTEND Specialist
DX: Z01.818 Encounter for other preprocedural examination (principal)

== ENCOUNTER 2020-10-25 10:37 | Day surgery (SDC) | payer MEDICARE, OTHER ==
[~2020-10-25] VITALS: Ht 157 cm; Wt 54.5 kg
[~2020-10-25 10:37] MED LIST changes: +GABA300C PO; +MELO7.5T46 PO; +METF-865 PO
[2020-10-25] MEDS ORDERED: POVIDONE (BETADINE) OPHTH SOLN 5% 30 ML OP ONE (11:15)
[2020-10-25] MEDS ORDERED: TIMOLOL MALEATE 0.5% 5 ML (TIMOPTIC) BTL OU PRN (11:15)
[2020-10-25] MEDS ORDERED: MOXIFLOXACIN OPHTH SOLN 5 MG/ML 0.3 ML SYRINGE OP ONE (11:15)
[2020-10-25] MEDS ORDERED: LIDOCAINE PF 1% 2 ML VIAL IR PRN (11:15)
[2020-10-25] MEDS: TETRACAINE 0.5% OPHTH SOLN 4 ML BTL (SINGLE DOSE ONLY) OU PRN ×4 (11:27→11:45)
[2020-10-25] MEDS: PHENYLEPHRINE 10% OPHTH (NEO-SYN) 5 ML BTL OU SCH ×3 (11:34→11:45)
[2020-10-25] MEDS: TROPICAMIDE 1% OPH SOLN (MYDRIACYL) 15 ML BTL OP SCH ×3 (11:34→11:45)
[2020-10-25 11:36] VITALS: BP 138/77
[2020-10-25] MEDS ORDERED: MIDAZOLAM 2 MG/2 ML (VERSED) VIAL ONE (12:07)
--- NOTE | 2020-10-25 12:16 | Ophthalmologist Pre-Op Note ---
Pre-Operative Progress Note H&P Reviewed The H&P was reviewed, patient examined and no changes noted. Date H&P Reviewed: Oct 25, 2020 Time H&P Reviewed: 12:16 Pre-Op Dx Cataract, Left Eye JEOVANNY MC MD Oct 25, 2020 12:16
--- NOTE | 2020-10-25 12:39 | Ophthalmology Operative Report ---
Cataract removal/placement IOL PREOPERATIVE DIAGNOSIS: Cataract Left Eye POSTOPERATIVE DIAGNOSIS: Cataract Left Eye PROCEDURE: Cataract removal and placement of posterior chamber implant, left eye SURGEON: Yang Mc ANESTHESIA: Topical with sedation COMPLICATIONS: None ESTIMATED BLOOD LOSS: Minimal DESCRIPTION OF PROCEDURE: After proper informed consent was obtained, the patient, a 70 female, was taken to the Operating Room and the left eye was anesthetized with tetracaine. The left eye was then prepped and draped in the usual manner. A wire lid speculum was placed. A paracentesis was made at the left hand position. Preservative free lidocaine was injected into the anterior chamber followed by viscoelastic. A clear corneal incision was made in the temporal position. A capsulorrhexis was preformed and the central nuclear and cortical material were removed. The posterior capsule was polished and an Abhishek 20.0 AU00T0 was placed into the capsular bag. The residual viscoelastic was aspirated and balanced saline solution was injected into the anterior chamber. Moxifloxacin was injected into the anterior chamber. The wound was checked and found to be water tight. The patient tolerated the procedure well without complications. YANG MC MD Oct 25, 2020 12:39
[2020-10-25 12:45] VITALS: BP 144/69
[2020-10-25] MEDS ORDERED: acetaZOLAMIDE ER 500 MG CAP (DIAMOX SEQUELS) PO ONE (13:00)
--- NOTE | 2020-10-25 13:24 | Anesthesia-General Post-Op ---
MAC Patient Condition Mental Status/LOC: Same as Preop Cardiovascular: Satisfactory Nausea/Vomiting: Absent Respiratory: Satisfactory Pain: Controlled Complications: Absent Post Op Complications Complications None Follow Up Care/Instructions Patient Instructions None needed. Anesthesiology Discharge Order Discharge Order Patient was doing well after the procedure with no complaints, stable vital signs, no apparent adverse anesthesia problems. DAYDAY DELACRUZ DO Oct 25, 2020 13:24
== END 2020-10-25 13:15 ==
LOC: SDC 10:37
PROVIDERS: ATTEND Specialist
DX: E11.36 Type 2 diabetes mellitus with diabetic cataract (principal); H25.12 Age-related nuclear cataract, left eye; I10 Essential (primary) hypertension; K21.9 Gastro-esophageal reflux disease without esophagitis; M19.90 Unspecified osteoarthritis, unspecified site; Z79.899 Other long term (current) drug therapy; Z79.891 Long term (current) use of opiate analgesic; Z88.5 Allergy status to narcotic agent; Z79.4 Long term (current) use of insulin
CPT/HCPCS: 66984; 82947; V2632

== ENCOUNTER 2020-11-15 11:10 | Day surgery (SDC) | payer MEDICARE, OTHER ==
[~2020-11-15] VITALS: Ht 157 cm; Wt 54.5 kg
[2020-11-15] MEDS ORDERED: TIMOLOL MALEATE 0.5% 5 ML (TIMOPTIC) BTL OU PRN (11:30)
[2020-11-15] MEDS ORDERED: POVIDONE (BETADINE) OPHTH SOLN 5% 30 ML OP ONE (11:30)
[2020-11-15] MEDS: TETRACAINE 0.5% OPHTH SOLN 4 ML BTL (SINGLE DOSE ONLY) OU PRN ×4 (11:30→11:48)
[2020-11-15] MEDS ORDERED: MOXIFLOXACIN OPHTH SOLN 5 MG/ML 0.3 ML SYRINGE OP ONE (11:30)
[2020-11-15] MEDS ORDERED: LIDOCAINE PF 1% 2 ML VIAL IR PRN (11:30)
[2020-11-15] MEDS: TROPICAMIDE 1% OPH SOLN (MYDRIACYL) 15 ML BTL OP SCH ×3 (11:38→11:48)
[2020-11-15] MEDS: PHENYLEPHRINE 10% OPHTH (NEO-SYN) 5 ML BTL OU SCH ×3 (11:38→11:48)
[2020-11-15 11:51] VITALS: BP 167/72
--- NOTE | 2020-11-15 12:25 | Ophthalmologist Pre-Op Note ---
Pre-Operative Progress Note H&P Reviewed The H&P was reviewed, patient examined and no changes noted. Date H&P Reviewed: Nov 15, 2020 Time H&P Reviewed: 12:24 Pre-Op Dx Cataract, Right Eye JEOVANNY MC MD Nov 15, 2020 12:25
[2020-11-15] MEDS ORDERED: MIDAZOLAM 2 MG/2 ML (VERSED) VIAL ONE (12:28)
--- NOTE | 2020-11-15 12:47 | Ophthalmology Operative Report ---
Cataract removal/placement IOL PREOPERATIVE DIAGNOSIS: Cataract Right Eye POSTOPERATIVE DIAGNOSIS: Cataract Right Eye PROCEDURE: Cataract removal and placement of posterior chamber implant, right eye SURGEON: Yang Mc ANESTHESIA: Topical with sedation COMPLICATIONS: None ESTIMATED BLOOD LOSS: Minimal DESCRIPTION OF PROCEDURE: After proper informed consent was obtained, the patient, a 70 female, was taken to the Operating Room and the right eye was anesthetized with tetracaine. The right eye was then prepped and draped in the usual manner. A wire lid speculum was placed. A paracentesis was made at the left hand position. Preservative free lidocaine was injected into the anterior chamber followed by viscoelastic. A clear corneal incision was made in the temporal position. A capsulorrhexis was preformed and the central nuclear and cortical material were removed. The posterior capsule was polished and Abhishek 19.5 AU00T0 IOL was placed into the capsular bag. The residual viscoelastic was aspirated and balanced saline solution was injected into the anterior chamber. Moxifloxacin was injected into the anterior chamber. The wound was checked and found to be water tight. The patient tolerated the procedure well without complications. YANG MC MD Nov 15, 2020 12:47
--- NOTE | 2020-11-15 12:50 | Anesthesia-General Post-Op ---
MAC Patient Condition Mental Status/LOC: Same as Preop Cardiovascular: Satisfactory Nausea/Vomiting: Absent Respiratory: Satisfactory Pain: Controlled Complications: Absent Post Op Complications Complications None Follow Up Care/Instructions Patient Instructions None needed. Anesthesiology Discharge Order Discharge Order Patient is doing well, no complaints, stable vital signs, no apparent adverse anesthesia problems. No complications reported per nursing. TOMASA OBRIEN CRNA Nov 15, 2020 12:50
[2020-11-15] MEDS ORDERED: acetaZOLAMIDE ER 500 MG CAP (DIAMOX SEQUELS) PO ONE (13:00)
[2020-11-15 13:15] VITALS: BP 151/68
== END 2020-11-15 13:15 | disposition home or self-care (01) ==
LOC: SDC 11:10
PROVIDERS: ATTEND Specialist
DX: E11.36 Type 2 diabetes mellitus with diabetic cataract (principal); H25.11 Age-related nuclear cataract, right eye; K21.9 Gastro-esophageal reflux disease without esophagitis; I10 Essential (primary) hypertension; M19.90 Unspecified osteoarthritis, unspecified site; Z79.899 Other long term (current) drug therapy; Z79.84 Long term (current) use of oral hypoglycemic drugs; Z98.890 Other specified postprocedural states
CPT/HCPCS: 66984; V2632

== ENCOUNTER → 2021-02-19 | Outpatient (CLI) | payer MEDICARE, OTHER ==
--- NOTE | 2021-02-19 14:27 | Diagnostic Imaging Report ---
EXAMINATION: Right lower extremity MRI without contrast, 02/19/2021. TECHNIQUE: Multiplanar, multisequence non contrast-enhanced MRI of the right lower extremity was accomplished. INDICATION: Ulcer, bottom of the foot towards the hindfoot. Marker at the site of concern. History of diabetes. FINDINGS: There is diffuse abnormal signal intensity throughout the calcaneus and talus and also involving the cuboid, navicular, and portions of the lateral-most cuneiform. There is diffuse destructive change and loss of normal spaces between the tarsals with subchondral cystic changes at the cubocalcaneal joint space consistent with degenerative disease. No definite fracture lines are appreciated by MRI standards. There is diffuse soft tissue edema throughout the entire visualized foot and ankle. There is a joint effusion within the anterior and posterior tibiotalar joint spaces and in the posterior subtalar joint with fluid in the talonavicular joint as well. Narrowing, spurring, and subchondral cystic change throughout the talonavicular joint also present. There is plantar and posterior calcaneal spurring. There is a marker along the plantar surface of the foot towards the midfoot with the immediately underlying structures demonstrating mild focal T2 hyperintensity subcutaneously perhaps due to a known ulceration. No abscess is appreciated. There is T2 hyperintensity within the plantar musculature of the foot likely due to myositis. There is diffuse enlargement of the distal Achilles tendon without discontinuity. Findings consistent with tendinosis. The peroneus brevis tendon appears intact. There is a short segment longitudinal split tear within the peroneus longus tendon at and just below the level of the malleolus. No complete discontinuity is appreciated. The flexor and extensor tendons appear intact. The anterior and posterior inferior tibiofibular ligaments appear intact. The anterior talofibular ligament and posterior talofibular ligament are intact. The deltoid ligament is intact. IMPRESSION: 1. Diffuse destructive change throughout the midfoot suggesting a process such as a Charcot joint or neuropathic joint with diffuse abnormal signal intensity throughout the osseous structures of the midfoot and hindfoot, some of which could be reactive in nature. On this noncontrast examination, however, osteomyelitis is not excluded, especially given known ulceration. 2. Tendinosis of the distal Achilles tendon which is intact with a short segment longitudinal split tear of the peroneus longus tendon. No discontinuity. Remaining tendons and visualized ligaments intact. Dictated by: Dictated on workstation # [id number]
== END ==
LOC: RAD 13:15
PROVIDERS: ATTEND Podiatrist Foot & Ankle Surgery
DX: E11.621 Type 2 diabetes mellitus with foot ulcer (principal); L97.519 Non-pressure chronic ulcer of other part of right foot with unspecified severity; M86.171 Other acute osteomyelitis, right ankle and foot

== ENCOUNTER 2021-05-28 05:34 | Outpatient (CLI) | payer MEDICARE, OTHER ==
[~2021-05-28] VITALS: Ht 157.5 cm; Wt 59.7 kg
[2021-05-28] MEDS ORDERED: ROSU10TA28 PO (14:31)
[2021-05-28] MEDS ORDERED: DOCU-26 PO (14:31)
[2021-05-28] MEDS ORDERED: ACET650T41 PO (14:31)
[2021-05-28] MEDS ORDERED: AMLO-250 PO (14:31)
[2021-05-28] MEDS ORDERED: METO-333 PO (14:31)
[2021-05-28] MEDS ORDERED: GABA-486 PO (14:31)
== END 2021-05-28 14:52 | disposition home or self-care (01) ==
LOC: PREOP 05:34
PROVIDERS: ATTEND Surgery
DX: Z01.818 Encounter for other preprocedural examination (principal)

== ENCOUNTER → 2021-06-02 | Outpatient (CLI) | payer MEDICARE, OTHER ==
[~2021-06-02] MED LIST changes: +ACET650T41 PO; +AMLO-250 PO; +DOCU-26 PO; +GABA-486 PO; +ROSU10TA28 PO
--- NOTE | 2021-06-02 18:41 | Diagnostic Imaging Report ---
PROCEDURE: US renal bilateral. TECHNIQUE: Multiple real-time grayscale images were obtained over the kidneys in various projections, bilaterally. INDICATION: Chronic kidney disease. FINDINGS: The right kidney [id number], the left 10.7 cm. Cortical thickness and parenchymal echotexture are normal. There is no solid or cystic renal mass evident. No echogenic or shadowing stone. No subcapsular or perinephric abnormality. The urinary bladder appears normal. Its prevoid volume 260 mL, there was a 34 mL post void residual. Color Doppler flow at the bilateral ureteral orifices was confirmed. IMPRESSION: Normal sonographic appearance of the unobstructed kidneys and urinary bladder with small, 34 mL, post void residual bladder volume. Dictated by: Dictated on workstation # [id number]
== END ==
LOC: RAD 12:00
PROVIDERS: ATTEND Internal Medicine Nephrology
DX: I12.9 Hypertensive chronic kidney disease with stage 1 through stage 4 chronic kidney disease, or unspecified chronic kidney disease (principal); N18.31 Chronic kidney disease, stage 3a; N25.81 Secondary hyperparathyroidism of renal origin; D63.1 Anemia in chronic kidney disease
CPT/HCPCS: 76770

== ENCOUNTER 2021-06-04 08:29 | Day surgery (SDC) | payer MEDICARE, OTHER ==
[~2021-06-04] VITALS: Ht 157.5 cm; Wt 59.7 kg
[2021-06-04] MEDS ORDERED: LACTATED RINGERS 1,000 ML IV STA (08:32)
[2021-06-04] MEDS ORDERED: LACTATED RINGERS 1,000 ML IV ONE (08:34)
[2021-06-04 08:40] VITALS: BP 168/72
[2021-06-04] MEDS ORDERED: LIDOCAINE JELLY 2% 6 ML SYRINGE MM PRN (08:45)
[2021-06-04] MEDS ORDERED: PROPOFOL INJECTION 50 ML IV ONE (10:08)
[2021-06-04] MEDS ORDERED: MIDAZOLAM 2 MG/2 ML (VERSED) VIAL ONE (10:08)
--- NOTE | 2021-06-04 10:14 | Progress Note-Pre Operative ---
Pre-Operative Progress Note H&P Reviewed The H&P was reviewed, patient examined and no changes noted. Date Seen by Provider: Jun 04, 2021 Time Seen by Provider: : Date H&P Reviewed: Jun 04, 2021 Time H&P Reviewed: :30 Pre-Operative Diagnosis: screening colonoscopy LAURY CHOWDARY MD Jun 04, 2021 10:14
[2021-06-04] MEDS ORDERED: ONDANSETRON 4 MG/2 ML (SDV) Z0FRAN IVP PRN (10:15)
[2021-06-04] MEDS ORDERED: ONDANSETRON 4 MG (ZOFRAN) ORAL DISSOLVE TAB PO PRN (10:15)
--- NOTE | 2021-06-04 10:16 | Discharge Inst-Surgical ---
D/C Lap Instructions-RICARDA Follow Up Activity as tolerated High Fiber Diet 25g or more per day Avoid Alcohol, Caffeine, Spicy Emet and Acid foods. Drink 64 fluid oz or more of fluids per day. Symptoms to Report: Fever over 101 degree F, Nausea/Vomiting If any problems/questions: Contact your physician or go to Emergency Room LAURY CHOWDARY MD Jun 04, 2021 10:16
[2021-06-04 10:52] VITALS: BP 101/58
--- NOTE | 2021-06-04 10:53 | Anesthesia-General Post-Op ---
MAC Patient Condition Mental Status/LOC: Same as Preop Cardiovascular: Satisfactory Nausea/Vomiting: Absent Respiratory: Satisfactory Pain: Controlled Complications: Absent Post Op Complications Complications None Follow Up Care/Instructions Patient Instructions None needed. Anesthesiology Discharge Order Discharge Order Patient is doing well, no complaints, stable vital signs, no apparent adverse anesthesia problems. No complications reported per nursing. TONYA PEREIRA CRNA Jun 04, 2021 10:53
[2021-06-04 10:57] VITALS: BP 98/59
--- NOTE | 2021-06-04 10:59 | Progress Note-Post Operative ---
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 Procedure & Operative Findings Date of Procedure 06/04/21 Procedure Performed/Findings colonoscopy Anesthesia Type mac Estimated Blood Loss Estimated blood loss (mL): minimal Specimens/Packing Specimens Removed none LAURY CHOWDARY MD Jun 04, 2021 10:59
[2021-06-04 11:00] VITALS: BP 96/58
[2021-06-04 11:03] VITALS: BP 107/58
[2021-06-04 11:25] VITALS: BP 160/82
--- NOTE | 2021-06-04 13:54 | OPERATIVE REPORT ---
DATE OF SERVICE: 06/04/2021 ATTENDING PRIMARY WEIGHBRIDGE OPERATOR: Billie You APRN. PREOPERATIVE DIAGNOSIS: Screening colonoscopy. POSTOPERATIVE DIAGNOSIS: Chronic stage II external and internal hemorrhoids. PROCEDURE PERFORMED: Colonoscopy. SURGEON: Laury Chowdary MD. ANESTHESIA: Monitored anesthesia care. ESTIMATED BLOOD LOSS: Minimal. FINDINGS: Chronic stage II external and internal hemorrhoids. DISPOSITION: The patient tolerated the procedure well. INDICATIONS FOR PROCEDURE: The patient is a 70-year-old female known to us. She has had issues with wound infections of the right foot requiring debridement and has also had dysphagia and weight loss. She underwent an EGD on 02/02/2020, found to have a distal esophageal stricture and underwent balloon dilatation. She then reported weight loss and anorexia and was found to have gallstones and underwent a laparoscopic cholecystectomy on 03/14/2020. She is in need of a screening colonoscopy. She has not had a colonoscopy up to this point in her life. She states that she recently did have a Hemoccult test, which was positive. She does not report any family history of colon cancer. DESCRIPTION OF PROCEDURE: The patient was brought to the endoscopy suite and laid in the left lateral decubitus position. After adequate IV pain and sedative medications and monitored anesthesia care, a digital rectal examination was performed, which revealed chronic stage II external and internal hemorrhoids, not actively edematous nor inflamed and no bleeding. Normal sphincter tone was felt and there were no palpable masses. The endoscope was then intubated into the anus and rectum gently insufflated. The endoscope was then advanced through the valves of Dickerson of the rectum with no polyps or any neoplasms identified. Through the sigmoid colon, no diverticulosis identified. The endoscope was then advanced to the remainder of the descending, transverse and ascending colon to the cecum, which were normal. No polyps or any neoplasms were identified throughout the colon or rectum. The endoscope was then slowly withdrawn while taking a second look and suctioning of residual air with no additional findings. The patient tolerated the procedure well. We will recommend medical management with a high fiber diet with incorporation of a fiber supplement, which should equal or exceed 25 grams daily. If she is asymptomatic, she does not need another colonoscopy for another 10 years. Job ID: [id number] DocumentID: [id number] Dictated Date: 06/04/2021 10:54:53 Operator Control Room Date: 06/04/2021 13:53:38 Dictated By: LAURY CHOWDARY MD
== END 2021-06-04 11:35 | disposition home or self-care (01) ==
LOC: ENDO 08:29
PROVIDERS: ATTEND Surgery
DX: Z12.11 Encounter for screening for malignant neoplasm of colon (principal); K64.1 Second degree hemorrhoids; R19.5 Other fecal abnormalities

== ENCOUNTER → 2021-11-11 | Outpatient (CLI) | payer MEDICARE, OTHER ==
[~2021-11-11] MED LIST changes: +ACET-2717 PO; -ACET650T41 PO
--- NOTE | 2021-11-11 15:01 | Diagnostic Imaging Report ---
INDICATION: Postmenopausal screening COMPARISON: Baseline FINDINGS: AP Spine L1-L4: [BMD (g/cm2): 1.190] [T-Score: -0.1] [Z-Score: 1.9] [BMD Previous: na] [BMD % Change: na] LT Hip Neck: [BMD (g/cm2): 0.712] [T-Score: -2.3] [Z-Score: -0.5] LT Hip Total: [BMD (g/cm2):0.803] [T-Score:-1.6] [Z-Score: 0.0] [BMD Previous: na] [BMD % Change: na] RT Hip Neck: [BMD (g/cm2):0.734] [T-Score:-2.2] [Z-Score:-0.3] RT Hip Total: [BMD (g/cm2):0.744] [T-score:-2.1] [Z-Score:-0.5] [BMD Previous:na] [BMD % Change:na] *Indicates significant change from prior examination based on 95% confidence level. World Health Organization criteria for BMD interpretation classify patients as Normal (T-score at or above -1.0), Osteopenic (T-score between -1.0 and -2.5) or Osteoporotic (T-score at or below -2.5). LIMITATIONS AND MODIFICATION: None. FRACTURE RISK (FRAX SCORE): The ten year probability of (%): Major Osteoporotic Fracture: [20.4] Hip Fracture: [4.7] IMPRESSION: 1. Osteopenia (Low bone mass). 2. Baseline examination. 3. See below National Osteoporosis Foundation guidelines on when to potentially initiate pharmacologic therapy. Based on the National Osteoporosis Foundation Guidelines, pharmacologic treatment should be initiated in any of the following, unless clinical conditions suggest otherwise: * Any patient with prior fragility fracture of the hip or vertebrae. A spine fracture indicates 5X risk for subsequent spine fracture and 2X risk for subsequent hip fracture. * Osteoporosis (T-score <-2.5). * Postmenopausal women and men age 50 and older with low bone mass/osteopenia (T-score between -1.0 and -2.5) by DXA and 10-year major osteoporotic fracture greater than 20% or a 10-year probability of hip fracture greater than 3%. These fracture risks are supplied above in the FRAX score, if applicable. * Clinician judgement and/or patient preferences may indicate treatment for people with 10-year fracture probabilities above or below these levels. Dictated by: Dictated on workstation # [id number]
== END ==
LOC: RAD 13:00
PROVIDERS: ATTEND Nurse Practitioner Family
DX: M85.80 Other specified disorders of bone density and structure, unspecified site (principal); Z78.0 Asymptomatic menopausal state
CPT/HCPCS: 77080

== ENCOUNTER → 2022-05-20 | Outpatient (CLI) | payer MEDICARE, OTHER ==
--- NOTE | 2022-05-20 18:04 | Diagnostic Imaging Report ---
PROCEDURE: MR imaging of the brain without contrast. TECHNIQUE: Multiplanar, multisequence MR imaging of the brain was performed without contrast. INDICATION: Dizziness. COMPARISON: None. FINDINGS: Ventricles and cortical sulci are mildly prominent, likely from generalized parenchymal volume loss. No acute ischemia is seen. No acute hemorrhage is seen. There is no midline shift or significant mass effect. There is a small T2 hyperintense masslike lesion measuring about 3 mm in diameter protruding into the 4th ventricle along the anterior wall. No other mass is seen. There is no evidence of obstruction or hydrocephalus. There are scattered areas of T2 hyperintensity in the white matter which are likely from chronic microvascular disease. The paranasal sinuses demonstrate normal signal. There is minimal fluid in the right mastoid air cells. The globes are unremarkable. IMPRESSION: 1. Small 3 mm mass in the 4th ventricle. No evidence of obstruction or significant mass effect. This could be a subependymoma or perhaps an ependymoma. Consider follow-up MRI with contrast. 2. No acute ischemia or acute hemorrhage. Dictated by: Dictated on workstation # [id number]
== END ==
LOC: RAD 17:15
PROVIDERS: ATTEND Physician Assistant
DX: R42 Dizziness and giddiness (principal); R55 Syncope and collapse
CPT/HCPCS: 70551